=== PATIENT | male | born 1950 | race Caucasian/White ===

== ENCOUNTER → 2016-08-28 | Outpatient (CLI) | payer OTHER ==
--- NOTE | 2016-08-28 10:10 | MR ---
EXAMINATION TYPE: MR cervical spine wo con DATE OF EXAM: 08/28/2016 COMPARISON: 11/24/2008 HISTORY: Cervicalgia TECHNIQUE: Multiplanar, multisequence images of the cervical spine were acquired. C2-C3: No evidence for degenerative disc disease. No disc bulge/herniation or protrusion. No Canal stenosis. Foramina are patent bilaterally. C3-C4: No evidence for degenerative disc disease. No disc bulge/herniation or protrusion. No Canal stenosis. Foramina are patent bilaterally. C4-C5: Mild broad-based central disc bulging. Mild uncovertebral joint projecting with no canal steno sis or foraminal encroachment. C5-C6: Moderate degenerative disc disease. Broad-based central disc protrusion results in encroachmen t upon the anterior margin the spinal cord and mild mass effect. Moderate to severe canal stenosis wi th uncovertebral joint hypertrophy and facet arthropathy contribute to moderate to severe bilateral f oraminal encroachment. C6-C7: Posterior cervical spondylosis with broad-based disc protrusion capped by spur greater paracen trally to the left. Uncovertebral joint hypertrophy and facet arthropathy contribute to moderate to s evere bilateral foraminal encroachment and moderate canal stenosis. C7-T1: No evidence for degenerative disc disease. No disc bulge/herniation or protrusion. No Canal stenosis. Foramina are patent bilaterally. Cervical segments are intact. There is normal alignment. Cervical spinal cord is of normal signal. Craniovertebral junction relationships are within normal limits. Changes of chronic sinusitis noted . IMPRESSION: 1. Degenerative disc disease particularly noted at C5-C6 and C6-C7 with central broad-based disc prot rusions capped by spur, cervical spondylosis and hypertrophic changes resulting in significant canal stenosis and bilateral foraminal encroachment as discussed above. Contact and mild mass effect upon t he anterior margin of the cervical spinal cord at C5-C6 is progressed from the previous exam.
== END | disposition home or self-care (01) ==
LOC: RADMRIMAIN 08:55
PROVIDERS: ATTEND Physician Assistant Medical
DX: M48.02 Spinal stenosis, cervical region (principal); M50.222 Other cervical disc displacement at C5-C6 level; M47.812 Spondylosis without myelopathy or radiculopathy, cervical region; M50.322 Other cervical disc degeneration at C5-C6 level; M53.82 Other specified dorsopathies, cervical region
CPT/HCPCS: 72141

== ENCOUNTER 2019-02-23 01:20 | Inpatient (IN) | payer OTHER, MEDICARE ==
[2019-02-23 02:28] LABS: Basophils % (A) 0 %; Eosinophils # (A) 0.1 k/uL (0-0.7); Eosinophils % (A) 1 %; HCT 48.6 % (39.0-53.0); HGB 16.1 gm/dL (13.0-17.5); Lymphocytes % (A) 11 %; MCH 31.6 pg (25.0-35.0); MCHC 33.2 g/dL (31.0-37.0); MCV 95.4 fL (80.0-100.0); Mean Platelet Volume 6.9; Monocytes # (A) 0.3 k/uL (0-1.0); Monocytes % (A) 3 %; Neutrophils # (A) 7.8 k/uL (1.3-7.7); Neutrophils % (A) 85 %; Platelet Count 281 k/uL (150-450); RDW 12.9 % (11.5-15.5); WBC 9.2 k/uL (3.8-10.6)
[2019-02-23 02:42] LABS: Appearance,Urine Clear (Clear); Bilirubin,Urine Negative (Negative); Blood,Urine Moderate (Negative); Color,Urine Yellow; Glucose,Urine (UA) Negative (Negative); Ketones,Urine Negative (Negative); Leukocyte Esterase,Urine Trace (Negative); Mucus,Urine Occasional /hpf; Nitrite,Urine Negative (Negative); Protein,Urine 1+ (Negative); RBC,Urine 15 /hpf (0-5); Specific Gravity,Urine 1.012 (1.001-1.035); Urobilinogen,Urine <2.0 mg/dL (<2.0); WBC,Urine 1 /hpf (0-5)
--- NOTE | 2019-02-23 02:47 | XR ---
EXAMINATION TYPE: XR KUB DATE OF EXAM: 02/23/2019 COMPARISON: NONE HISTORY: Abdominal pain TECHNIQUE: 2 views upright FINDINGS: Bowel gas pattern is normal. There is no sign of intestinal obstruction or pneumoperitoneum . Fecal pattern is normal. There is no sign of a mass. There is small area of atelectasis lateral left lung base. IMPRESSION: Nonacute abdomen.
[2019-02-23 02:53] LABS: ALT 17 U/L (4-49); AST 28 U/L (17-59); African American GFR (CKD) >90 (>60 ml/min/1.73 sqM); Alkaline Phosphatase 69 U/L (38-126); Anion Gap 12 mmol/L; Blood Urea Nitrogen 7 mg/dL (9-20); Carbon Dioxide 27 mmol/L (22-30); Chloride 97 mmol/L (98-107); Glucose 132 mg/dL (74-99); Non-African American GFR(CKD) 81 (>60 ml/min/1.73 sqM); Potassium 4.2 mmol/L (3.5-5.1); Sodium 136 mmol/L (137-145); Total Bilirubin 0.9 mg/dL (0.2-1.3); Total Protein 8.4 g/dL (6.3-8.2)
[2019-02-23 03:01] LABS: Amylase 354 U/L (30-110)
--- NOTE | 2019-02-23 03:02 | ED ---
Abdominal Pain HPI - General Chief Complaint: Abdominal Pain Stated Complaint: abdominal pain Time Seen by Provider: 02/23/19 02:11 Source: patient Mode of arrival: ambulatory Limitations: no limitations - History of Present Illness Initial Comments: Matteo is a previously healthy 69-year-old gentleman a presents the ER today for evaluation of generalized abdominal pain. Pain began on the evening and has progressively worsened since then he's been taking Pepto with no improvement. Patient seems to be worse on the right than left but is diffuse now. Pain is associated with nausea but no vomiting. Normal bowel movement yesterday. Patient has no history of diverticulitis or diverticulosis. Normal colonoscopy about 5 years ago. She has a history of ruptured appendix with appendectomy in the distant past. Patient states that he has not much of a drinker he did have 1 glass of wine with [place] dinner. He does still have his gallbladder. He has no history of pancreatitis. Was recently prescribed Celebrex which is his only new medic ation. - Related Data Allergies Allergy/AdvReac Type Severity Reaction Status Date / Time Mhwcjqk-Upc-Ict Reductase Allergy Rash/Hives Verified 02/23/19 01:49 Inhibitor Review of Systems ROS Statement: Those systems with pertinent positive or pertinent negative responses have been documented in the HPI. ROS Other: All systems not noted in ROS Statement are negative. Past Medical History Past Medical History: Hypertension History of Any Multi-Drug Resistant Organisms: None Reported Past Surgical History: Appendectomy, Hernia Repair Past Psychological History: No Psychological Hx Reported Smoking Status: Never smoker Past Alcohol Use History: None Reported Past Drug Use History: None Reported General Exam - General Exam Comments Initial Comments: Physical Exam GENERAL: Patient is well-developed and well-nourished. Patient is nontoxic and well- hydrated and is in no distress. HENT: Normocephalic, Atraumatic. EYES: PERRL, EOMI PULMONARY: Unlabored respirations. No audible rales rhonchi or wheezing was noted. CARDIOVASCULAR: There is a regular rate and rhythm without any murmurs gallops or rubs. ABDOMEN: Soft, nondistended, diffuse tenderness to palpation SKIN: Skin is clear with no lesions or rashes and otherwise unremarkable. : Deferred NEUROLOGIC: Patient is alert and oriented x3. Moving all extremities spontaneously MUSCULOSKELETAL: Normal extremities with adequate strength and full range of motion. No lower extremity swelling or edema. No calf tenderness. PSYCHIATRIC: Normal psychiatric evaluation. Limitations: no limitations Course Vital Signs 02/23/19 02/23/19 02/23/19 01:45 03:33 04:12 Temperature 98.1 F Pulse Rate 108 H 94 92 Respiratory 18 18 18 Rate Blood Pressure 161/90 146/84 143/79 O2 Sat by Pulse 97 96 96 Oximetry Medical Decision Making - Medical Decision Making The patient was seen and evaluated history is obtained from the patient history and physical exam reveal a moderately uncomfortable elderly gentleman with no known GI pathology. Labs reveal elevated lipase and amylase consistent with acute pancreatitis. CT imaging was obtained. Computed tomography scan confirms inflammation of the pancreas with a normal gallbladder, normal liver, no other acute findings. Patient will be admitted for IV fluids pain management. - Lab Data Result diagrams: 02/23/19 02:02 02/23/19 02:02 Lab Results 02/23/19 02/23/19 02/23/19 Range/Units 02:02 02:02 02:02 WBC 9.2 (3.8-10.6) k/uL RBC 5.10 (4.30-5.90) m/uL Hgb 16.1 (13.0-17.5) gm/dL Hct 48.6 (39.0-53.0) % MCV 95.4 (80.0-100.0) fL MCH 31.6 (25.0-35.0) pg MCHC 33.2 (31.0-37.0) g/dL RDW 12.9 (11.5-15.5) % Plt Count 281 (150-450) k/uL Neutrophils % 85 % Lymphocytes % 11 % Monocytes % 3 % Eosinophils % 1 % Basophils % 0 % Neutrophils # 7.8 H (1.3-7.7) k/uL Lymphocytes # 1.0 (1.0-4.8) k/uL Monocytes # 0.3 (0-1.0) k/uL Eosinophils # 0.1 (0-0.7) k/uL Basophils # 0.0 (0-0.2) k/uL Sodium 136 L (137-145) mmol/L Potassium 4.2 (3.5-5.1) mmol/L Chloride 97 L (98-107) mmol/L Carbon Dioxide 27 (22-30) mmol/L Anion Gap 12 mmol/L BUN 7 L (9-20) mg/dL Creatinine 0.95 (0.66-1.25) mg/dL Est GFR (CKD-EPI)AfAm >90 (>60 ml/min/1.73 sqM) Est GFR (CKD-EPI)NonAf 81 (>60 ml/min/1.73 sqM) Glucose 132 H (74-99) mg/dL Plasma Lactic Acid [place] (0.7-2.0) mmol/L Calcium 10.0 (8.4-10.2) mg/dL Total Bilirubin 0.9 (0.2-1.3) mg/dL AST 28 (17-59) U/L ALT 17 (4-49) U/L Alkaline Phosphatase 69 (38-126) U/L Troponin I <0.012 (0.000-0.034) ng/mL Total Protein 8.4 H (6.3-8.2) g/dL Albumin 5.0 (3.5-5.0) g/dL Amylase 354 H* (30-110) U/L Lipase 2908 H (23-300) U/L Urine Color Urine Appearance (Clear) Urine pH (5.0-8.0) Ur Specific [place] (1.001-1.035) Urine Protein (Negative) Urine Glucose (UA) (Negative) Urine Ketones (Negative) Urine Blood (Negative) Urine Nitrite (Negative) Urine Bilirubin (Negative) Urine Urobilinogen (<2.0) mg/dL Ur Leukocyte Esterase (Negative) Urine RBC (0-5) /hpf Urine WBC (0-5) /hpf Urine Mucus (None) /hpf 02/23/19 02/23/19 Range/Units 02:02 02:11 WBC (3.8-10.6) k/uL RBC (4.30-5.90) m/uL Hgb (13.0-17.5) gm/dL Hct (39.0-53.0) % MCV (80.0-100.0) fL MCH (25.0-35.0) pg MCHC (31.0-37.0) g/dL RDW (11.5-15.5) % Plt Count (150-450) k/uL Neutrophils % % Lymphocytes % % Monocytes % % Eosinophils % % Basophils % % Neutrophils # (1.3-7.7) k/uL Lymphocytes # (1.0-4.8) k/uL Monocytes # (0-1.0) k/uL Eosinophils # (0-0.7) k/uL Basophils # (0-0.2) k/uL Sodium (137-145) mmol/L Potassium (3.5-5.1) mmol/L Chloride (98-107) mmol/L Carbon Dioxide (22-30) mmol/L Anion Gap mmol/L BUN (9-20) mg/dL Creatinine (0.66-1.25) mg/dL Est GFR (CKD-EPI)AfAm (>60 ml/min/1.73 sqM) Est GFR (CKD-EPI)NonAf (>60 ml/min/1.73 sqM) Glucose (74-99) mg/dL Plasma Lactic Acid [place] 1.4 (0.7-2.0) mmol/L Calcium (8.4-10.2) mg/dL Total Bilirubin (0.2-1.3) mg/dL AST (17-59) U/L ALT (4-49) U/L Alkaline Phosphatase (38-126) U/L Troponin I (0.000-0.034) ng/mL Total Protein (6.3-8.2) g/dL Albumin (3.5-5.0) g/dL Amylase (30-110) U/L Lipase (23-300) U/L Urine Color Yellow Urine Appearance Clear (Clear) Urine pH 6.0 (5.0-8.0) Ur Specific [place] 1.012 (1.001-1.035) Urine Protein 1+ H (Negative) Urine Glucose (UA) Negative (Negative) Urine Ketones Negative (Negative) Urine Blood Moderate H (Negative) Urine Nitrite Negative (Negative) Urine Bilirubin Negative (Negative) Urine Urobilinogen <2.0 (<2.0) mg/dL Ur Leukocyte Esterase Trace H (Negative) Urine RBC 15 H (0-5) /hpf Urine WBC 1 (0-5) /hpf Urine Mucus Occasional H (None) /hpf - EKG Data EKG shows normal: sinus rhythm Rate: tachycardia EKG Comments: EKG was obtained due to complaint of epigastric pain in the elderly gentleman, EKG obtained at 2:11 AM, rate is 101 rhythm is sinus tach normal axis normal intervals no acute ST elevations or depressions no evidence of acute ischemia or infarction. Disposition Clinical Impression: Acute pancreatitis Disposition: ADMITTED IP TO THIS HOSP Condition: Serious Is patient prescribed a controlled substance at d/c from ED?: No
[2019-02-23] MEDS ORDERED: ONDANSETRON 4 MG/2 ML VIAL IVP STA (03:19)
[2019-02-23] MEDS ORDERED: MORPHINE SULFATE 4 MG/ML SYRINGE IVP STA (03:19)
[2019-02-23] MEDS ORDERED: MORPHINE SULFATE 4 MG/ML SYRINGE IV PRN (03:20)
[2019-02-23] MEDS ORDERED: SODIUM CHLORIDE 0.9% 1,000 ML IV ONE (03:20)
[2019-02-23] MEDS ORDERED: NALOXONE 0.4 MG/ML 1 ML VIAL IV PRN (03:20)
[2019-02-23] MEDS ORDERED: SODIUM CHLORIDE 0.9% 2,000 ML IV ONE (03:22)
--- NOTE | 2019-02-23 04:33 | CT ---
EXAMINATION TYPE: CT abdomen pelvis w con DATE OF EXAM: 02/23/2019 COMPARISON: None HISTORY: Patient presents with abdominal pain. CT DLP: 963.3 mGycm Automated exposure control for dose reduction was used. CONTRAST: Performed with IV Contrast, patient injected with 100mL mL of Isovue 300. Lung bases show mild scarring or subsegmental atelectasis in the left lower lobe. There is no pleural effusion. Heart size is normal. Liver and gallbladder appear normal. Spleen is intact. Stomach is intact. There is mild fat stranding around the tail of the pancreas. I see no pancreatic mass. There is no adrenal mass. Kidneys show satisfactory contrast opacification. There is no hydronephrosi s. There is 2 cm cortical cyst lateral left kidney. There is no retroperitoneal adenopathy. Ureters a re not dilated. Bladder distends smoothly. There is no inguinal hernia. There are multiple sigmoid diverticula. There is no diverticulitis. There is no mesenteric edema. There is no ascites or free air. Appendix is not seen. There is no sign of thickened appendix. Lumbar vertebra have normal alignment. Disc spaces are fairly normal. Posterior elements are intact. Bony pelvis is intact. There is no compression fractur e. IMPRESSION: Mild inflammatory changes around the tail of the pancreas consistent with acute pancreatitis. Minimal scarring or atelectasis at the left posterior lung base.
[2019-02-23] MEDS: SODIUM CHLORIDE 0.9% 1,000 ML IV SCH ×3 (06:39→15:45)
[2019-02-23] MEDS: HYDROmorphone 0.5 MG/0.5 ML SYRINGE IVP PRN ×4 (08:04→23:25)
[2019-02-23 08:17] LABS: Glucose,Whole Blood 109 mg/dL (75-99)
--- NOTE | 2019-02-23 14:09 | P.HPIM ---
History of Present Illness This is a pleasant 69 years old male with no significant past medical history other than hypertension present presents because of abdominal pain 2 days duration. Pain and periumbilical and generalized as per patient nonradiating. Nonspecific in character but is severe enough to bring him to the hospital associated with nausea but no vomiting, no change in bowel habits however his stool was dark colored because he was taking Pepto-Bismol as he states. No significant attacks in the past. No smoking or alcohol or illicit drugs. He takes Celebrex for his neck pain as he has chronic back and neck pain Vitals are stable. Labs including CBC, BMP and liver enzymes were unremarkable. Elevated lipase at 04/06/2007 and amylase at 354. [address] of the abdomen and pelvis, showing mild inflammatory changes in the tail of the pancreas consistent with acute pancreatitis. abdominal x-ray: No acute abdomen. abnormal urinalysis with moderate blood and trace leukocyte esterase. We got repeat urinalysis room patient was started on morphine, normal saline 200 mL per hour and placed nothing by mouth diet. Review of Systems CONSTITUTIONAL: No fever, no malaise, no fatigue. HEENT: No recent visual problems or hearing problems. Denied any sore throat. CARDIOVASCULAR: No orthopnea, PND, no palpitations, no syncope. PULMONARY: No shortness of breath, no cough, no hemoptysis. GASTROINTESTINAL: No diarrhea, no nausea, no vomiting, no abdominal pain. Normoactive bowel sounds. NEUROLOGICAL: No headaches, no weakness, no numbness. HEMATOLOGICAL: Denies any bleeding or petechiae. GENITOURINARY: Denies any burning micturition, frequency, or urgency. MUSCULOSKELETAL/RHEUMATOLOGICAL: Denies any joint pain, swelling, or any muscle pain. ENDOCRINE: Denies any polyuria or polydipsia. Past Medical History Past Medical History: Hypertension History of Any Multi-Drug Resistant Organisms: None Reported Past Surgical History: Appendectomy, Hernia Repair Past Psychological History: No Psychological Hx Reported Smoking Status: Never smoker Past Alcohol Use History: None Reported Past Drug Use History: None Reported Medications and Allergies Home Medications Medication Instructions Recorded Confirmed Type ALPRAZolam [Xanax] 0.5 mg PO DAILY PRN 02/23/19 02/23/19 History Brinzolamide/Brimonidine Tart 1 drop BOTH EYES BID 02/23/19 02/23/19 History [Simbrinza 1%-0.2% Eye Drops] Calcium Carbonate/Vitamin D3 1 tab PO DAILY 02/23/19 02/23/19 History [Calcium 500-Vit D3 200 Tablet] Celecoxib [CeleBREX] 200 mg PO BID 02/23/19 02/23/19 History Fluticasone Nasal [place] [Flonase 1 spray EA NOSTRIL BID 02/23/19 02/23/19 History Nasal [place]] Latanoprost [Xalatan 0.005%] 1 drop BOTH EYES HS 02/23/19 02/23/19 History Lidocaine 5% Oint [Xylocaine 5% 1 applic TOPICAL BID 02/23/19 02/23/19 History Oint] Loratadine [Claritin] 10 mg PO DAILY 02/23/19 02/23/19 History Mineral Oil/Petrolatum Opth 1 applic BOTH EYES HS 02/23/19 02/23/19 History Ointment Multivitamins, Thera [Multivitamin 1 tab PO DAILY 02/23/19 02/23/19 History (formulary)] [place]-3 Fatty Acids/Fish Oil [Fish 1 cap PO DAILY 02/23/19 02/23/19 History Oil 1,000 mg Softgel] Polyethylene Glycol 3350 [Miralax] 17 gm PO DAILY PRN 02/23/19 02/23/19 History traZODone HCL [Desyrel] 100 mg PO HS 02/23/19 02/23/19 History Allergies Allergy/AdvReac Type Severity Reaction Status Date / Time Ftcmfrs-Kci-Jzu Reductase AdvReac MUSCLE PAIN Verified 02/23/19 10:02 Inhibitor Physical Exam Vitals: Vital Signs Temp Pulse Resp BP Pulse Ox 02/23/19 12:25 98.8 F 79 20 161/90 95 02/23/19 10:32 78 18 148/82 98 02/23/19 07:23 99.4 F 85 18 154/86 97 02/23/19 06:40 98.8 F 90 18 129/75 99 02/23/19 04:12 92 18 143/79 96 02/23/19 03:33 94 18 146/84 96 02/23/19 01:45 98.1 F 108 H 18 161/90 97 Intake and Output 02/22/19 02/23/19 02/23/19 22:59 06:59 14:59 Other: Weight 72.575 kg GENERAL: The patient is alert and oriented x3, not in any acute distress. Well developed, well nourished. HEENT: Pupils are round and equally reacting to light. EOMI. No scleral icterus. No conjunctival pallor. Normocephalic, atraumatic. No pharyngeal erythema. No thyromegaly. CARDIOVASCULAR: S1 and S2 present. No murmurs, rubs, or gallops. PULMONARY: Chest is clear to auscultation, no wheezing or crackles. -ABDOMEN: Soft, epigastric tenderness, nondistended, normoactive bowel sounds. No palpable organomegaly. MUSCULOSKELETAL: No joint swelling or deformity. EXTREMITIES: No cyanosis, clubbing, or pedal edema. NEUROLOGICAL: Gross neurological examination did not reveal any focal deficits. SKIN: No rashes. No petechiae Results CBC & Chem 7: 02/23/19 02:02 02/23/19 02:02 Labs: Abnormal Lab Results - Last 24 Hours (Table) 02/23/19 02/23/19 02/23/19 Range/Units 02:02 02:02 02:11 Neutrophils # 7.8 H (1.3-7.7) k/uL Sodium 136 L (137-145) mmol/L Chloride 97 L (98-107) mmol/L BUN 7 L (9-20) mg/dL Glucose 132 H (74-99) mg/dL POC Glucose (mg/dL) (75-99) mg/dL Total Protein 8.4 H (6.3-8.2) g/dL Amylase 354 H* (30-110) U/L Lipase 2908 H (23-300) U/L Urine Protein 1+ H (Negative) Urine Blood Moderate H (Negative) Ur Leukocyte Esterase Trace H (Negative) Urine RBC 15 H (0-5) /hpf Urine Mucus Occasional H (None) /hpf 02/23/19 Range/Units 08:15 Neutrophils # (1.3-7.7) k/uL Sodium (137-145) mmol/L Chloride (98-107) mmol/L BUN (9-20) mg/dL Glucose (74-99) mg/dL POC Glucose (mg/dL) 109 H (75-99) mg/dL Total Protein (6.3-8.2) g/dL Amylase (30-110) U/L Lipase (23-300) U/L Urine Protein (Negative) Urine Blood (Negative) Ur Leukocyte Esterase (Negative) Urine RBC (0-5) /hpf Urine Mucus (None) /hpf Assessment and Plan Assessment: Acute pancreatitis Hypertension Chronic neck and back pain Plan: This is a pleasant 69 years old male who presents with acute pancreatitis. Continue with bowel rest, pain management and IV fluids. GI consult. Check lipid profile, check liver ultrasound. Check lipid profile and occult blood in stool Labs and medication were reviewed.. Continue same treatment. Continue with symptomatic treatment. Resume home medication. Monitor lytes and vitals. DVT and GI prophylaxis. Further recommendations of the clinical course of the patient DVT prophylaxis: Subcutaneous heparin GI Prophylaxis: Pepcid PT/OT: Pending Prognosis is guarded has
[2019-02-23 15:07] LABS: Glucose,Whole Blood 121 mg/dL (75-99)
[2019-02-23] MEDS: DEXTROSE 5%-0.9% NACL 1,000 ML IV SCH ×3 (16:02→22:33)
[2019-02-23] MEDS: ACETAMINOPHEN TAB 325 MG TAB PO PRN (16:25)
[2019-02-23 16:30] LABS: Glucose,Whole Blood 123 mg/dL (75-99)
[2019-02-23] MEDS: ONDANSETRON 4 MG/2 ML VIAL IVP PRN (19:26)
[2019-02-23] MEDS: FAMOTIDINE 20 MG/2 ML VIAL IV SCH (20:15)
[2019-02-23] MEDS: DORZOLAMIDE HCL 2% DROPS 10 ML BTL BOTH EYES SCH (20:15)
[2019-02-23] MEDS: BRIMONIDINE TARTRATE 0.2% DROPS 5 ML BTL BOTH EYES SCH (20:15)
[2019-02-23] MEDS: HEPARIN SODIUM,PORCINE 5,000 UNIT/ML 1 ML VIAL SQ SCH (20:15)
[2019-02-23 20:26] LABS: Appearance,Urine Clear (Clear); Bilirubin,Urine Negative (Negative); Blood,Urine Small (Negative); Color,Urine Light Yellow; Glucose,Urine (UA) Negative (Negative); Ketones,Urine 2+ (Negative); Leukocyte Esterase,Urine Negative (Negative); Mucus,Urine Rare /hpf; Nitrite,Urine Negative (Negative); Protein,Urine Negative (Negative); RBC,Urine 8 /hpf (0-5); Specific Gravity,Urine 1.014 (1.001-1.035); Urobilinogen,Urine <2.0 mg/dL (<2.0); WBC,Urine 1 /hpf (0-5)
[2019-02-23 20:30] LABS: Glucose,Whole Blood 194 mg/dL (75-99)
[2019-02-23] MEDS ORDERED: SODIUM CHLORIDE 0.9% 1,000 ML IV SCH (21:15)
[2019-02-24] MEDS: HYDROmorphone 0.5 MG/0.5 ML SYRINGE IVP PRN ×4 (02:55→18:21)
[2019-02-24] MEDS: ACETAMINOPHEN TAB 325 MG TAB PO PRN ×3 (02:57→14:40)
[2019-02-24] MEDS: DEXTROSE 5%-0.9% NACL 1,000 ML IV SCH ×4 (04:13→21:23)
[2019-02-24 07:05] LABS: Glucose,Whole Blood 96 mg/dL (75-99)
--- NOTE | 2019-02-24 08:01 | P.PN ---
Subjective This is a pleasant 69 years old male with no significant past medical history other than hypertension present presents because of abdominal pain 2 days duration. Pain and periumbilical and generalized as per patient nonradiating. Nonspecific in character but is severe enough to bring him to the hospital associated with nausea but no vomiting, no change in bowel habits however his stool was dark colored because he was taking Pepto-Bismol as he states. No significant attacks in the past. No smoking or alcohol or illicit drugs. He takes Celebrex for his neck pain as he has chronic back and neck pain Vitals are stable. Labs including CBC, BMP and liver enzymes were unremarkable. Elevated lipase at 04/06/2007 and amylase at 354. CT of the abdomen and pelvis, showing mild inflammatory changes in the tail of the pancreas consistent with acute pancreatitis. abdominal x-ray: No acute abdomen. abnormal urinalysis with moderate blood and trace leukocyte esterase. We got repeat urinalysis room patient was started on morphine, normal saline 200 mL per hour and placed nothing by mouth diet. 02/24/2019 Patient still complaining of from abdominal pain with no nausea vomiting. No bowel movement as of yesterday. His sugar has been dropping and he is been nothing by mouth, patient is not diabetic, we'll add dextrose to his IV fluids. Keep checking his sugar. Vitals stable. Labs are pending. He has periumbilical abdominal tenderness therefore going to do abdominal x-ray for follow-up Review of systems CONSTITUTIONAL: No fever, no malaise, no fatigue. HEENT: No recent visual problems or hearing problems. Denied any sore throat. CARDIOVASCULAR: No orthopnea, PND, no palpitations, no syncope. PULMONARY: No shortness of breath, no cough, no hemoptysis. GASTROINTESTINAL: No diarrhea, Normoactive bowel sounds. NEUROLOGICAL: No headaches, no weakness, no numbness. HEMATOLOGICAL: Denies any bleeding or petechiae. GENITOURINARY: Denies any burning micturition, frequency, or urgency. MUSCULOSKELETAL/RHEUMATOLOGICAL: Denies any joint pain, swelling, or any muscle pain. ENDOCRINE: Denies any polyuria or polydipsia. Active Medications Generic Name Dose Route Start Last Admin Trade Name Freq PRN Reason Stop Dose Admin Acetaminophen 650 mg 02/23/19 16:01 02/24/19 02:57 Tylenol Tab PO 650 mg Q6HR PRN Administration Fever and/ or MILD Pain Brimonidine Tartrate 1 drops 02/23/19 21:00 02/23/19 20:15 Alphagan P 0.2% Ophth Soln BOTH EYES 1 drops BID ANDRE Administration Dorzolamide HCl 1 drops 02/23/19 21:00 02/23/19 20:15 Trusopt BOTH EYES 1 drops BID ANDRE Administration Famotidine 20 mg 02/23/19 21:00 02/23/19 20:15 Pepcid IV 20 mg Q12HR ANDRE Administration Heparin Sodium (Porcine) 5,000 unit 02/23/19 21:00 02/23/19 20:15 Heparin SQ 5,000 unit Q12HR ANDRE Administration Hydromorphone HCl 0.5 mg 02/23/19 03:20 02/24/19 02:55 Dilaudid IVP 0.5 mg Q3HR PRN Administration Moderate Pain Dextrose/Sodium Chloride 1,000 mls @ 200 mls/hr 02/23/19 14:15 02/24/19 04:13 Dextrose 5%-Ns Iv Soln IV Not Given .Q5H [facility] Morphine Sulfate 4 mg 02/23/19 03:20 02/24/19 06:13 Morphine Sulfate (Inj) IV 4 mg Q4HR PRN Administration Severe Pain Naloxone HCl 0.2 mg 02/23/19 03:20 Narcan IV Q2M PRN Opioid Reversal Ondansetron HCl 4 mg 02/23/19 03:20 02/23/19 19:26 Zofran IVP 4 mg Q8HR PRN Administration Nausea And Vomiting Objective - Vital Signs Vital signs: Vital Signs Temp 97.9 F 02/24/19 06:04 Pulse 69 02/24/19 06:04 Resp 17 02/24/19 06:04 BP 152/88 02/24/19 06:04 Pulse Ox 98 02/24/19 06:04 Intake & Output 02/23/19 02/24/19 02/24/19 18:59 06:59 18:59 Weight 72.575 kg Other: # Voids 1 - Exam GENERAL: The patient is alert and oriented x3, not in any acute distress. Well developed, well nourished. HEENT: Pupils are round and equally reacting to light. EOMI. No scleral icterus. No conjunctival pallor. Normocephalic, atraumatic. No pharyngeal erythema. No thyromegaly. CARDIOVASCULAR: S1 and S2 present. No murmurs, rubs, or gallops. PULMONARY: Chest is clear to auscultation, no wheezing or crackles. -ABDOMEN: Soft, epigastric and periumbilical tenderness, nondistended, normoactive bowel sounds. No palpable organomegaly. MUSCULOSKELETAL: No joint swelling or deformity. EXTREMITIES: No cyanosis, clubbing, or pedal edema. NEUROLOGICAL: Gross neurological examination did not reveal any focal deficits. SKIN: No rashes. No petechiae - Labs CBC & Chem 7: 02/23/19 02:02 02/23/19 02:02 Labs: Abnormal Lab Results - Last 24 Hours (Table) 02/23/19 02/23/19 02/23/19 Range/Units 08:15 15:06 16:12 POC Glucose (mg/dL) 109 H 121 H (75-99) mg/dL Urine Ketones 2+ H (Negative) Urine Blood Small H (Negative) Urine RBC 8 H (0-5) /hpf Urine Mucus Rare H (None) /hpf 02/23/19 02/23/19 Range/Units 16:25 20:19 POC Glucose (mg/dL) 123 H 194 H (75-99) mg/dL Urine Ketones (Negative) Urine Blood (Negative) Urine RBC (0-5) /hpf Urine Mucus (None) /hpf Assessment and Plan Assessment: Acute pancreatitis Hypertension Chronic neck and back pain Plan: This is a pleasant 69 years old male who presents with acute pancreatitis. Continue with bowel rest, pain management and IV fluids. GI consult. Check lipid profile, check liver ultrasound. Check lipid profile and occult blood in stool. Liver ultrasound and abdominal x-ray are pending Labs and medication were reviewed.. Continue same treatment. Continue with symptomatic treatment. Resume home medication. Monitor lytes and vitals. DVT and GI prophylaxis. Further recommendations of the clinical course of the patient DVT prophylaxis: Subcutaneous heparin GI Prophylaxis: Pepcid PT/OT: Pending Prognosis is guarded has
[2019-02-24] MEDS: HEPARIN SODIUM,PORCINE 5,000 UNIT/ML 1 ML VIAL SQ SCH ×2 (09:05→21:19)
[2019-02-24] MEDS: FAMOTIDINE 20 MG/2 ML VIAL IV SCH ×2 (09:05→21:18)
[2019-02-24] MEDS: DORZOLAMIDE HCL 2% DROPS 10 ML BTL BOTH EYES SCH ×2 (09:16→21:19)
[2019-02-24] MEDS: BRIMONIDINE TARTRATE 0.2% DROPS 5 ML BTL BOTH EYES SCH ×2 (09:16→21:19)
[2019-02-24] MEDS: ONDANSETRON 4 MG/2 ML VIAL IVP PRN (09:20)
[2019-02-24 09:42] LABS: Basophils % (A) 0 %; Eosinophils # (A) 0.2 k/uL (0-0.7); Eosinophils % (A) 2 %; Lymphocytes # (A) 1.6 k/uL (1.0-4.8); Lymphocytes % (A) 20 %; MCH 32.5 pg (25.0-35.0); MCHC 33.5 g/dL (31.0-37.0); Mean Platelet Volume 6.9; Monocytes # (A) 0.3 k/uL (0-1.0); Monocytes % (A) 4 %; Neutrophils # (A) 5.9 k/uL (1.3-7.7); Neutrophils % (A) 72 %; Platelet Count 249 k/uL (150-450); RBC 4.02 m/uL (4.30-5.90); WBC 8.1 k/uL (3.8-10.6)
[2019-02-24 09:45] LABS: HGB 13.1 gm/dL (13.0-17.5)
[2019-02-24 09:48] LABS: African American GFR (CKD) >90 (>60 ml/min/1.73 sqM); Amylase 107 U/L (30-110); Anion Gap 9 mmol/L; Blood Urea Nitrogen 8 mg/dL (9-20); Calcium 8.9 mg/dL (8.4-10.2); Carbon Dioxide 26 mmol/L (22-30); Chloride 104 mmol/L (98-107); Cholesterol 155 mg/dL (<200); Glucose 86 mg/dL (74-99); HDL Cholesterol 28 mg/dL (40-60); LDL Cholesterol,Calculated 102 mg/dL (0-99); Non-African American GFR(CKD) >90 (>60 ml/min/1.73 sqM); Potassium 4.3 mmol/L (3.5-5.1); Sodium 139 mmol/L (137-145); Triglycerides 127 mg/dL (<150)
--- NOTE | 2019-02-24 10:06 | XR ---
EXAMINATION TYPE: XR abdomen 2V DATE OF EXAM: 02/24/2019 COMPARISON: 02/23/2019 HISTORY: Abdominal pain TECHNIQUE: One view abdominal series FINDINGS: The osseous structures are intact. The bowel gas pattern is nonspecific. Subsegmental changes at the lung bases. Hypertrophic degenerative changes spine. Sclerotic density overlying the left iliac wing likely related to bone island. Nonspecific sclerosis of the right femoral head. Calcifications in pe lvis likely vascular. IMPRESSION: 1. Nonspecific abdomen. No diagnostic evidence of obstruction. 2. 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
--- NOTE | 2019-02-24 11:23 | US ---
EXAMINATION TYPE: US liver DATE OF EXAM: 02/24/2019 COMPARISON: CT CLINICAL HISTORY: Pancreatitis. Pancreatitis EXAM MEASUREMENTS: Liver Length: 13.7 cm Gallbladder Wall: 0.2 cm CBD: 0.5 cm Right Kidney: 10.3 x 4.7 x 4.6 cm Pt very gassy, unable to take breath in and hold it, very limited visualization Pancreas: 4mm panc duct visualized, otherwise unable to visualize due to overlying bowel gas Liver: Very limited visualization shows no abnormality Gallbladder: ?distended, only visualized intercostally, otherwise appeared wnl Evidence for sonographic Saxena's sign: No CBD: wnl Right Kidney: appeared wnl, lower pole gassed out IMPRESSION: 1. Pancreas is limited by bowel gas. There is slight prominence of the pancreatic duct. Pancreatic ta il is completely obscured and cannot be correlated with the findings seen by recent CT scan. 2. Limited assessment liver as discussed above. 3. No definite gallstones.
[2019-02-24] MEDS ORDERED: SENNOSIDES 8.6 MG TAB PO STA (14:45)
[2019-02-24 17:00] LABS: Glucose,Whole Blood 103 mg/dL (75-99)
[2019-02-24] MEDS: traZODone HCL 100 MG TAB PO SCH (21:18)
[2019-02-25] MEDS: DEXTROSE 5%-0.9% NACL 1,000 ML IV SCH ×5 (02:29→22:30)
[2019-02-25] MEDS: ACETAMINOPHEN TAB 325 MG TAB PO PRN (04:39)
--- NOTE | 2019-02-25 07:04 | P.CONS ---
History of Present Illness - Reason for Consult Consult date: 02/24/19 Pancreatitis Requesting physician: [place] E Sheet - Chief Complaint Abdominal pain - History of Present Illness 69-year-old male with medical history significant for hypertension who presented to the hospital with complaints of abdominal pain. The patient reported abdomin al pain present since which had been progressing in intensity. He reports that the pain was described as stabbing in nature in the. Umbilical region. No radiation of the patient's pain. He denies any similar episodes of pain in the past. The patient reports dry heaving in association with this pain but denies any nausea or vomiting. He denies any significant alcohol use. No personal or family history of pancreatitis in the past. Denies any new medications except for Celebrex. On presentation to the hospital laboratory evaluation significant for hemoglobin 16.1, WBC 9.2, creatinine 0.79 with elevated lipase of 2408 and amylase 354. Patient had evaluation with computed tomography scan of the abdomen with findings consistent with acute uncomplicated pancreatitis of the pancreatic tail. Review of Systems REVIEW OF SYSTEMS: CONSTITUTIONAL: Denies any fevers, chills, weight change or fatigue. CARDIOVASCULAR: Denies any chest pain, palpitations high or low blood pressures RESPIRATORY: Denies any shortness of breath, hemoptysis or cough. GENITOURINARY: No dysuria or hematuria. MUSCULOSKELETAL: No weakness reported. SKIN: Denies any new rashes or lesions, jaundice or pallor. PSYCHIATRIC: Denies any depression or anxiety. NEUROLOGY: Denies headache, denies any new focal deficits. EARS/NOSE/THROAT: No recent hearing change, congestion, nasal discharge or sore throat. EYES: No pain in eyes, discharge or change in vision. GASTROINTESTINAL: As per HPI. Past Medical History Past Medical History: Hypertension Additional Past Medical History / Comment(s): hypoglycemic, glaucoma, chronic pain in neck/back/hip, History of Any Multi-Drug Resistant Organisms: None Reported Past Surgical History: Appendectomy, Hernia Repair Past Psychological History: No Psychological Hx Reported Smoking Status: Never smoker Past Alcohol Use History: None Reported Past Drug Use History: None Reported - Past Family History Mother Family Medical History: Diabetes Mellitus, Hypertension Father Family Medical History: Cancer Medications and Allergies Home Medications Medication Instructions Recorded Confirmed Type ALPRAZolam [Xanax] 0.5 mg PO DAILY PRN 02/23/19 02/23/19 History Brinzolamide/Brimonidine Tart 1 drop BOTH EYES BID 02/23/19 02/23/19 History [Simbrinza 1%-0.2% Eye Drops] Calcium Carbonate/Vitamin D3 1 tab PO DAILY 02/23/19 02/23/19 History [Calcium 500-Vit D3 200 Tablet] Celecoxib [CeleBREX] 200 mg PO BID 02/23/19 02/23/19 History Fluticasone Nasal [place] [Flonase 1 spray EA NOSTRIL BID 02/23/19 02/23/19 History Nasal [place]] Latanoprost [Xalatan 0.005%] 1 drop BOTH EYES HS 02/23/19 02/23/19 History Lidocaine 5% Oint [Xylocaine 5% 1 applic TOPICAL BID 02/23/19 02/23/19 History Oint] Loratadine [Claritin] 10 mg PO DAILY 02/23/19 02/23/19 History Mineral Oil/Petrolatum Opth 1 applic BOTH EYES HS 02/23/19 02/23/19 History Ointment Multivitamins, Thera [Multivitamin 1 tab PO DAILY 02/23/19 02/23/19 History (formulary)] [place]-3 Fatty Acids/Fish Oil [Fish 1 cap PO DAILY 02/23/19 02/23/19 History Oil 1,000 mg Softgel] Polyethylene Glycol 3350 [Miralax] 17 gm PO DAILY PRN 02/23/19 02/23/19 History traZODone HCL [Desyrel] 100 mg PO HS 02/23/19 02/23/19 History Allergies Allergy/AdvReac Type Severity Reaction Status Date / Time [id number]-Eyz Reductase AdvReac MUSCLE PAIN Verified 02/23/19 10:02 Inhibitor Physical Exam Vitals: Vital Signs Temp Pulse Resp BP Pulse Ox 02/24/19 12:28 98.1 F 98 16 166/84 02/24/19 06:04 97.9 F 69 17 152/88 98 Intake and Output 02/24/19 02/24/19 02/24/19 06:59 14:59 22:59 Other: # Voids 1 2 On physical examination, patient appears comfortable in no apparent distress. HEAD: Normocephalic, atraumatic. EYES: No scleral icterus. No conjunctival injection. MOUTH: No lesions, tongue midline. NECK: Trachea midline, no gross abnormalities. CHEST: Clear to auscultation with no wheezing or rhonchi appreciated. HEART: Regular rate and rhythm. ABDOMEN: Soft, obese, mildly tender to palpation. Bowel sounds are positive. No organomegaly. No guarding or rigidity. EXTREMITIES: No pedal edema. SKIN: No rashes, no jaundice. NEUROLOGIC: Alert and oriented x3. No focal deficits. Results CBC & Chem 7: 02/24/19 08:41 02/24/19 08:41 Labs: Abnormal Lab Results - Last 24 Hours (Table) 02/24/19 02/24/19 02/24/19 Range/Units 08:41 08:41 16:58 RBC 4.02 L (4.30-5.90) m/uL BUN 8 L (9-20) mg/dL POC Glucose (mg/dL) 103 H (75-99) mg/dL LDL Cholesterol, Calc 102 H (0-99) mg/dL HDL Cholesterol 28 L (40-60) mg/dL Lipase 742 H (23-300) U/L CT scan - abdomen: report reviewed (Computed tomography scan of the abdomen with findings of acute inflammatory changes of the pancreatic tail.) Assessment and Plan (1) Acute pancreatitis Narrative/Plan: 69-year-old male with a medical history significant for hypertension presenting with complaints of abdominal pain to the hospital and being found to have elevated lipase of 2480 and inflammation of the pancreatic tail on computed tomography scan of the abdomen. Unknown cause of the patient's pancreatitis with no excessive alcohol use, or imaging findings to suggest gallstones. Patient's pain is improving with supportive care. Current Visit: Yes Status: Acute Code(s): K85.90 - ACUTE PANCREATITIS WITHOUT NECROSIS OR INFECTION, UNSP SNOMED Code(s): 412382804 (2) Abdominal pain Current Visit: Yes Status: Acute Code(s): R10.9 - UNSPECIFIED ABDOMINAL PAIN SNOMED Code(s): 10227883 Plan: Supportive care Clear liquid diet initiated, advance as tolerated Continue IV fluid hydration Continue pain control Extensive discussion with the patient and his regarding current diagnosis Ultrasound of the abdomen and CT of the abdomen reviewed Patient will need follow-up and scheduling of MRI of the abdomen in 6 weeks after discharge and resolution of inflammation to rule out pancreatic mass thank you for allowing us to participate in the care of the patient we will follow
[2019-02-25 07:27] LABS: Glucose,Whole Blood 139 mg/dL (75-99)
[2019-02-25] MEDS: HEPARIN SODIUM,PORCINE 5,000 UNIT/ML 1 ML VIAL SQ SCH ×2 (09:10→22:03)
[2019-02-25] MEDS: DORZOLAMIDE HCL 2% DROPS 10 ML BTL BOTH EYES SCH ×2 (09:11→22:02)
[2019-02-25] MEDS: FAMOTIDINE 20 MG/2 ML VIAL IV SCH (09:11)
[2019-02-25] MEDS: BRIMONIDINE TARTRATE 0.2% DROPS 5 ML BTL BOTH EYES SCH ×2 (09:11→22:02)
[2019-02-25 09:44] LABS: Basophils % (A) 0 %; Eosinophils # (A) 0.1 k/uL (0-0.7); Eosinophils % (A) 1 %; HCT 39.1 % (39.0-53.0); HGB 12.9 gm/dL (13.0-17.5); Lymphocytes % (A) 16 %; MCH 31.7 pg (25.0-35.0); MCHC 32.9 g/dL (31.0-37.0); MCV 96.2 fL (80.0-100.0); Mean Platelet Volume 7.1; Monocytes # (A) 0.3 k/uL (0-1.0); Monocytes % (A) 4 %; Neutrophils # (A) 5.1 k/uL (1.3-7.7); Neutrophils % (A) 78 %; Platelet Count 249 k/uL (150-450); RBC 4.06 m/uL (4.30-5.90); RDW 12.8 % (11.5-15.5); WBC 6.5 k/uL (3.8-10.6)
[2019-02-25] MEDS: ALPRAZolam 0.5 MG TAB PO PRN (09:46)
[2019-02-25] MEDS: HYDROmorphone 0.5 MG/0.5 ML SYRINGE IVP PRN (09:46)
[2019-02-25 10:01] LABS: African American GFR (CKD) >90 (>60 ml/min/1.73 sqM); Anion Gap 12 mmol/L; Blood Urea Nitrogen 6 mg/dL (9-20); Carbon Dioxide 22 mmol/L (22-30); Chloride 106 mmol/L (98-107); Glucose 160 mg/dL (74-99); Non-African American GFR(CKD) >90 (>60 ml/min/1.73 sqM); Potassium 3.6 mmol/L (3.5-5.1); Sodium 140 mmol/L (137-145)
[2019-02-25] MEDS ORDERED: HYDROmorphone 0.5 MG/0.5 ML SYRINGE IVP PRN (10:02)
--- NOTE | 2019-02-25 10:09 | P.PN ---
Subjective This is a pleasant 69 years old male with no significant past medical history other than hypertension present presents because of abdominal pain 2 days duration. Pain and periumbilical and generalized as per patient nonradiating. Nonspecific in character but is severe enough to bring him to the hospital associated with nausea but no vomiting, no change in bowel habits however his stool was dark colored because he was taking Pepto-Bismol as he states. No significant attacks in the past. No smoking or alcohol or illicit drugs. He takes Celebrex for his neck pain as he has chronic back and neck pain Vitals are stable. Labs including CBC, BMP and liver enzymes were unremarkable. Elevated lipase at 04/06/[address] of the abdomen and pelvis, showing mild inflammatory changes in the tail of the pancreas consistent with acute pancreatitis. abdominal x-ray: No acute abdomen. abnormal urinalysis with moderate blood and trace leukocyte esterase. We got repeat urinalysis room patient was started on morphine, normal saline 200 mL per hour and placed nothing by mouth diet. 02/24/2019 Patient still complaining of from abdominal pain with no nausea vomiting. No bowel movement as of yesterday. His sugar has been dropping and he is been nothing by mouth, patient is not diabetic, we'll add dextrose to his IV fluids. Keep checking his sugar. Vitals stable. Labs are pending. He has periumbilical abdominal tenderness therefore going to do abdominal x-ray for follow-up 02/25/2019 Patient was doing better today, history they has been evaluated by GI service and he was started on diet, this morning he was tolerating diet well and he was thinking of going home however later on he tried walking the hallway and his pain get worse so change his mind and he wants to stay in Hospital for now and continue therapy. Continue with IV fluids and pain management. We'll start patient on [place] and lower the dose of Dilaudid. Hemodynamically stable. his stable and sugar controlled. Lipase slightly up compared to yesterday at 996 patient will need follow-up and scheduling of MRI of the abdomen in 6 weeks after discharge, to rule out pancreatic mass, patient was instructed about this recommendation and he verbalized understanding and acceptance Objective - Vital Signs Vital signs: Vital Signs Temp 98.1 F 02/25/19 04:26 Pulse 79 02/25/19 04:26 Resp 18 02/25/19 04:26 BP 161/87 02/25/19 04:26 Pulse Ox 96 02/25/19 04:26 Intake & Output 02/24/19 02/25/19 02/25/19 18:59 06:59 18:59 Output Total 2 Balance -2 Output: Stool 2 Other: Voiding Method Toilet Urinal # Voids 2 1 - Exam GENERAL: The patient is alert and oriented x3, not in any acute distress. Well developed, well nourished. HEENT: Pupils are round and equally reacting to light. EOMI. No scleral icterus. No conjunctival pallor. Normocephalic, atraumatic. No pharyngeal erythema. No thyromegaly. CARDIOVASCULAR: S1 and S2 present. No murmurs, rubs, or gallops. PULMONARY: Chest is clear to auscultation, no wheezing or crackles. -ABDOMEN: Soft, epigastric and periumbilical tenderness, nondistended, normoactive bowel sounds. No palpable organomegaly. MUSCULOSKELETAL: No joint swelling or deformity. EXTREMITIES: No cyanosis, clubbing, or pedal edema. NEUROLOGICAL: Gross neurological examination did not reveal any focal deficits. SKIN: No rashes. No petechiae - Labs CBC & Chem 7: 02/25/19 08:53 02/25/19 08:53 Labs: Abnormal Lab Results - Last 24 Hours (Table) 02/24/19 02/25/19 02/25/19 Range/Units 16:58 07:12 08:53 RBC 4.06 L (4.30-5.90) m/uL Hgb 12.9 L (13.0-17.5) gm/dL BUN (9-20) mg/dL Glucose (74-99) mg/dL POC Glucose (mg/dL) 103 H 139 H (75-99) mg/dL Lipase (23-300) U/L 02/25/19 Range/Units 08:53 RBC (4.30-5.90) m/uL Hgb (13.0-17.5) gm/dL BUN 6 L (9-20) mg/dL Glucose 160 H (74-99) mg/dL POC Glucose (mg/dL) (75-99) mg/dL Lipase 996 H (23-300) U/L Assessment and Plan Assessment: Acute pancreatitis Hypertension Chronic neck and back pain Plan: This is a pleasant 69 years old male who presents with acute pancreatitis. Continue with bowel rest, pain management and IV fluids. GI consult. Check lipid profile, check liver ultrasound. Check lipid profile and occult blood in stool. Liver ultrasound and abdominal x-ray are pending Labs and medication were reviewed.. Continue same treatment. Continue with symptomatic treatment. Resume home medication. Monitor lytes and vitals. DVT and GI prophylaxis. Further recommendations of the clinical course of the patient DVT prophylaxis: Subcutaneous heparin GI Prophylaxis: Pepcid PT/OT: Pending Prognosis is guarded has patient will need follow-up and scheduling of MRI of the abdomen in 6 weeks after discharge, to rule out pancreatic mass, patient was instructed about this recommendation and he verbalized understanding and acceptance. Patient says that he'll make sure he follows up
[2019-02-25] MEDS: HYDROcodone/APAP 7.5-325MG 1 EACH TAB PO PRN (11:38)
[2019-02-25 17:20] LABS: Glucose,Whole Blood 113 mg/dL (75-99)
[2019-02-25] MEDS: FAMOTIDINE 20 MG TAB PO SCH (22:03)
[2019-02-25] MEDS: traZODone HCL 100 MG TAB PO SCH (22:03)
[2019-02-25] MEDS: LATANOPROST 0.005% OPHTH DROPS 2.5 ML BTL BOTH EYES SCH (23:54)
[2019-02-26] MEDS: DEXTROSE 5%-0.9% NACL 1,000 ML IV SCH ×3 (04:38→13:25)
[2019-02-26] MEDS: HYDROcodone/APAP 7.5-325MG 1 EACH TAB PO PRN ×3 (06:15→23:33)
[2019-02-26 06:58] LABS: Glucose,Whole Blood 97 mg/dL (75-99)
[2019-02-26] MEDS: DORZOLAMIDE HCL 2% DROPS 10 ML BTL BOTH EYES SCH ×2 (08:22→20:51)
[2019-02-26] MEDS: FAMOTIDINE 20 MG TAB PO SCH (08:22)
[2019-02-26] MEDS: HEPARIN SODIUM,PORCINE 5,000 UNIT/ML 1 ML VIAL SQ SCH ×2 (08:22→20:58)
[2019-02-26] MEDS: BRIMONIDINE TARTRATE 0.2% DROPS 5 ML BTL BOTH EYES SCH ×2 (08:22→20:51)
[2019-02-26 09:14] LABS: Basophils % (A) 0 %; Eosinophils # (A) 0.3 k/uL (0-0.7); Eosinophils % (A) 4 %; HGB 14.4 gm/dL (13.0-17.5); Lymphocytes # (A) 1.6 k/uL (1.0-4.8); Lymphocytes % (A) 22 %; MCH 32.1 pg (25.0-35.0); MCHC 33.5 g/dL (31.0-37.0); Mean Platelet Volume 7.5; Monocytes # (A) 0.4 k/uL (0-1.0); Monocytes % (A) 5 %; Neutrophils # (A) 4.8 k/uL (1.3-7.7); Neutrophils % (A) 66 %; Platelet Count 305 k/uL (150-450); RBC 4.48 m/uL (4.30-5.90); RDW 12.7 % (11.5-15.5); WBC 7.3 k/uL (3.8-10.6)
[2019-02-26 09:21] LABS: African American GFR (CKD) >90 (>60 ml/min/1.73 sqM); Anion Gap 12 mmol/L; Blood Urea Nitrogen 8 mg/dL (9-20); Calcium 9.5 mg/dL (8.4-10.2); Carbon Dioxide 26 mmol/L (22-30); Chloride 102 mmol/L (98-107); Glucose 94 mg/dL (74-99); Non-African American GFR(CKD) 89 (>60 ml/min/1.73 sqM); Potassium 3.9 mmol/L (3.5-5.1); Sodium 140 mmol/L (137-145)
[2019-02-26 17:02] LABS: Glucose,Whole Blood 97 mg/dL (75-99)
[2019-02-26] MEDS: ALPRAZolam 0.5 MG TAB PO PRN (17:51)
--- NOTE | 2019-02-26 17:56 | P.PN ---
Subjective Progress Note Date: 02/25/19 Principal diagnosis: Acute uncomplicated pancreatitis Lying in bed reporting abdominal pain still present. No nausea or vomiting. Tolerating liquids. Objective - Vital Signs Vital signs: Vital Signs Temp 97.7 F 02/25/19 14:21 Pulse 73 02/25/19 14:21 Resp 16 02/25/19 14:21 BP 179/83 02/25/19 14:21 Pulse Ox 97 02/25/19 14:21 Intake & Output 02/24/19 02/25/19 02/25/19 18:59 06:59 18:59 Intake Total 230 Output Total 2 Balance -2 230 Intake: Oral 230 Output: Stool 2 Other: Voiding Method Toilet Urinal # Voids 2 1 2 - Exam On physical examination, patient appears comfortable in no apparent distress. HEAD: Normocephalic, atraumatic. EYES: No scleral icterus. No conjunctival injection. MOUTH: No lesions, tongue midline. NECK: Trachea midline, no gross abnormalities. ABDOMEN: Soft, obese. Bowel sounds are positive. No organomegaly. No guarding or rigidity. EXTREMITIES: No pedal edema. SKIN: No rashes, no jaundice. NEUROLOGIC: Alert and oriented x3. No focal deficits. - Labs CBC & Chem 7: 02/26/19 07:32 02/26/19 07:32 Labs: Abnormal Lab Results - Last 24 Hours (Table) 02/24/19 02/25/19 02/25/19 Range/Units 16:58 07:12 08:53 RBC 4.06 L (4.30-5.90) m/uL Hgb 12.9 L (13.0-17.5) gm/dL BUN (9-20) mg/dL Glucose (74-99) mg/dL POC Glucose (mg/dL) 103 H 139 H (75-99) mg/dL Lipase (23-300) U/L 02/25/19 Range/Units 08:53 RBC (4.30-5.90) m/uL Hgb (13.0-17.5) gm/dL BUN 6 L (9-20) mg/dL Glucose 160 H (74-99) mg/dL POC Glucose (mg/dL) (75-99) mg/dL Lipase 996 H (23-300) U/L Assessment and Plan (1) Acute pancreatitis Narrative/Plan: 69-year-old male with a medical history significant for hypertension presenting with complaints of abdominal pain to the hospital and being found to have elevated lipase of 2480 and inflammation of the pancreatic tail on computed t omography scan of the abdomen. Unknown cause of the patient's pancreatitis with no excessive alcohol use, or imaging findings to suggest gallstones. Current Visit: Yes Status: Acute Code(s): K85.90 - ACUTE PANCREATITIS WITHOUT NECROSIS OR INFECTION, UNSP SNOMED Code(s): 068140675 (2) Abdominal pain Current Visit: Yes Status: Acute Code(s): R10.9 - UNSPECIFIED ABDOMINAL PAIN SNOMED Code(s): 73420263 Plan: Supportive care Clear liquid diet Continue IV fluid hydration Continue pain control Encourage ambulation as tolerated Ultrasound of the abdomen and CT of the abdomen reviewed Patient will need follow-up and scheduling of MRI of the abdomen in 6 weeks after discharge and resolution of inflammation to rule out pancreatic mass Thank you for allowing us to participate in the care of the patient we will follow
[2019-02-26] MEDS ORDERED: PANTOPRAZOLE 40 MG/10 ML VIAL IVP SCH (18:00)
--- NOTE | 2019-02-26 18:36 | XR ---
EXAMINATION TYPE: XR chest 1V portable DATE OF EXAM: 02/26/2019 COMPARISON: 06/15/2008 HISTORY: Short of breath TECHNIQUE: 2 views FINDINGS: Heart is normal. Lungs are clear of consolidation. There is small linear density at the lef t lung base. There is no pleural effusion. There are no hilar masses. Bony thorax is intact. IMPRESSION: Minimal scarring or subsegmental atelectasis left lung base is new compared to old exam. Normal heart. No heart failure.
[2019-02-26] MEDS: traZODone HCL 100 MG TAB PO SCH (20:58)
[2019-02-26] MEDS: LIDOCAINE 5% OINTMENT 50 GM JAR TOPICAL SCH (21:02)
[2019-02-26] MEDS: LATANOPROST 0.005% OPHTH DROPS 2.5 ML BTL BOTH EYES SCH (21:04)
[2019-02-26] MEDS: FLUTICASONE 50MCG/SPRAY NASAL 16GM EA NOSTRIL SCH (21:04)
--- NOTE | 2019-02-26 22:15 | P.PN ---
Subjective Progress Note Date: 02/26/19 Principal diagnosis: Acute uncomplicated pancreatitis Lying in bed reporting abdominal pain still present, and that he can't state that the pain has gotten better or that the pain is worse. He is tolerating liquids. Objective - Vital Signs Vital signs: Vital Signs Temp 98.2 F 02/26/19 04:26 Pulse 73 02/26/19 04:26 Resp 12 02/26/19 04:26 BP 145/79 02/26/19 04:26 Pulse Ox 97 02/26/19 04:26 Intake & Output 02/25/19 02/26/19 02/26/19 18:59 06:59 18:59 Intake Total 230 Balance 230 Intake: Oral 230 Other: Voiding Method Toilet Urinal # Voids 2 1 - Exam On physical examination, patient appears comfortable in no apparent distress. HEAD: Normocephalic, atraumatic. EYES: No scleral icterus. No conjunctival injection. MOUTH: No lesions, tongue midline. NECK: Trachea midline, no gross abnormalities. ABDOMEN: Soft, obese. Bowel sounds are positive. No organomegaly. No guarding or rigidity. EXTREMITIES: No pedal edema. SKIN: No rashes, no jaundice. NEUROLOGIC: Alert and oriented x3. No focal deficits. - Labs CBC & Chem 7: 02/26/19 07:32 02/26/19 07:32 Labs: Abnormal Lab Results - Last 24 Hours (Table) 02/25/19 02/26/19 Range/Units 16:59 07:32 BUN 8 L (9-20) mg/dL POC Glucose (mg/dL) 113 H (75-99) mg/dL Lipase 917 H (23-300) U/L Assessment and Plan (1) Acute pancreatitis Narrative/Plan: 69-year-old male with a medical history significant for hypertension presenting with complaints of abdominal pain to the hospital and being found to have elevated lipase of 2480 and inflammation of the pancreatic tail on computed tomography scan of the abdomen. Unknown cause of the patient's pancreatitis with no excessive alcohol use, or imaging findings to suggest gallstones. Current Visit: Yes Status: Acute Code(s): K85.90 - ACUTE PANCREATITIS WITHOUT NECROSIS OR INFECTION, UNSP SNOMED Code(s): 902996768 (2) Abdominal pain Current Visit: Yes Status: Acute Code(s): R10.9 - UNSPECIFIED ABDOMINAL PAIN SNOMED Code(s): 20383720 Plan: Supportive care Clear liquid diet Continue IV fluid hydration Continue pain control Encourage ambulation as tolerated Ultrasound of the abdomen and CT of the abdomen reviewed Patient will need follow-up and scheduling of MRI of the abdomen in 6 weeks after discharge and resolution of inflammation to rule out pancreatic mass Thank you for allowing us to participate in the care of the patient we will follow
--- NOTE | 2019-02-27 00:03 | PN ---
PROGRESS NOTE DATE OF SERVICE: 02/26/2019 This 69-year-old gentleman admitted with acute severe pancreatitis, being closely monitored. CT scan showed some inflammation in the tail of the pancreas. Patient is being closely monitored at this time. PAST MEDICAL HISTORY: Reviewed. REVIEW OF SYSTEM: Cardiovascular: No angina. RESPIRATORY: As mentioned earlier. GASTROINTESTINAL: As mentioned earlier. : No dysuria or retention. CENTRAL NERVOUS SYSTEM: No numbness or weakness. CURRENT MEDICATIONS: Reviewed and include: 1. Tylenol p.r.n. 2. [place] 7.5 q.6h p.r.n. 3. Xanax. 5. Trusopt. 6. Pepcid. 7. Heparin. 8. Dilaudid. 9. Narcan. 10.Zofran. 11.Desyrel. PHYSICAL EXAM: Patient is alert, oriented x3. Pulse is 72. Blood pressure 151/80. Respirations 16, temperature 98.2, pulse ox 97% on room air. HEENT: Conjunctivae normal. Oral mucosa moist. NECK is no jugular venous distention. No carotid bruit. No lymph node enlargement. CARDIOVASCULAR: S1, S2 muffled. RESPIRATION: Breath sounds diminished in the bases. A few scattered rhonchi and crackles. ABDOMEN: Soft. Mild diffuse tenderness in the epigastrium. No guarding. No rigidity. Mild diffuse distention present. Bowel sounds present. No ascites. No guarding. No rebound tenderness. LEGS no edema. No swelling. NERVOUS SYSTEM: Higher functions as mentioned earlier. Moves all 4 limbs. No focal motor or sensory deficits. LYMPHATICS: No lymph nodes palpable in the neck, axillae or groin. SKIN: No ulcer, no rash and no bleeding. JOINTS: No active deforming arthropathy. LAB STUDIES: WBC 7.2, hemoglobin 14.4. ASSESSMENT: 1. Acute severe pancreatitis with severe continued abdominal pain, elevated liver enzymes. 2. Hypertension. 3. Hyponatremia, present on admission. 4. Increased random blood sugar. 5. Elevated lipase and amylase. 6. History of hypoglycemia. 7. History of glaucoma. 8. Chronic pain syndrome. 9. History of appendectomy. 10.History of hernia repair. RECOMMENDATIONS AND DISCUSSION: In this 69-year-old gentleman who presented with multiple medical issues, we will monitor the patient closely. Continue the current medications, management and symptomatic treatment. We will repeat labs. Otherwise symptomatic treatment will be provided. Proton pump inhibitors. I would recommend IV Protonix. The patient is on clear liquids and advanced clear liquids with enzymes are showing diminishing trend and the patient is symptomatically better. Guarded prognosis. Further recommendations to follow. MMODL / IJN: [id number] / MTDD
[2019-02-27 07:00] LABS: Glucose,Whole Blood 109 mg/dL (75-99)
[2019-02-27] MEDS ORDERED: ONDANSETRON ODT 4 MG TAB PO PRN (07:34)
[2019-02-27] MEDS: PANTOPRAZOLE 40 MG TABLET PO SCH ×2 (07:37→16:14)
[2019-02-27] MEDS: HEPARIN SODIUM,PORCINE 5,000 UNIT/ML 1 ML VIAL SQ SCH ×3 (07:37→21:27)
[2019-02-27] MEDS: BRIMONIDINE TARTRATE 0.2% DROPS 5 ML BTL BOTH EYES SCH ×2 (07:38→21:27)
[2019-02-27] MEDS: FLUTICASONE 50MCG/SPRAY NASAL 16GM EA NOSTRIL SCH ×2 (07:39→21:27)
[2019-02-27] MEDS: LIDOCAINE 5% OINTMENT 50 GM JAR TOPICAL SCH ×2 (07:40→21:37)
[2019-02-27] MEDS: DORZOLAMIDE HCL 2% DROPS 10 ML BTL BOTH EYES SCH (07:40)
[2019-02-27 08:29] LABS: Basophils % (A) 1 %; Eosinophils # (A) 0.3 k/uL (0-0.7); Eosinophils % (A) 4 %; HCT 39.4 % (39.0-53.0); HGB 13.2 gm/dL (13.0-17.5); Lymphocytes # (A) 1.6 k/uL (1.0-4.8); Lymphocytes % (A) 22 %; MCH 32.2 pg (25.0-35.0); MCHC 33.6 g/dL (31.0-37.0); MCV 95.8 fL (80.0-100.0); Mean Platelet Volume 7.1; Monocytes # (A) 0.4 k/uL (0-1.0); Monocytes % (A) 5 %; Neutrophils # (A) 4.8 k/uL (1.3-7.7); Neutrophils % (A) 66 %; Platelet Count 290 k/uL (150-450); RBC 4.11 m/uL (4.30-5.90); RDW 12.7 % (11.5-15.5); WBC 7.4 k/uL (3.8-10.6)
[2019-02-27 08:35] LABS: African American GFR (CKD) >90 (>60 ml/min/1.73 sqM); Amylase 82 U/L (30-110); Anion Gap 14 mmol/L; Blood Urea Nitrogen 9 mg/dL (9-20); Calcium 9.7 mg/dL (8.4-10.2); Carbon Dioxide 26 mmol/L (22-30); Chloride 101 mmol/L (98-107); Glucose 101 mg/dL (74-99); Non-African American GFR(CKD) 87 (>60 ml/min/1.73 sqM); Potassium 4.1 mmol/L (3.5-5.1); Sodium 141 mmol/L (137-145)
[2019-02-27] MEDS: ALPRAZolam 0.5 MG TAB PO PRN (09:38)
[2019-02-27] MEDS: HYDROcodone/APAP 7.5-325MG 1 EACH TAB PO PRN (16:13)
[2019-02-27] MEDS ORDERED: ALBUTEROL NEBULIZED 2.5 MG/3 ML INHALATION PRN (16:56)
[2019-02-27 17:19] LABS: Glucose,Whole Blood 105 mg/dL (75-99)
--- NOTE | 2019-02-27 18:41 | PN ---
PROGRESS NOTE DATE OF SERVICE: 02/27/2019 This 69-year-old gentleman who was admitted with acute severe pancreatitis is being closely monitored. No chest pain. No palpitations. No fever. The most recent chest x-ray done which was reviewed personally by me showed minimal subsegmental atelectasis. No chest pain. No palpitations. Patient is able to tolerate diet. The lipase is 856. EXAM: Alert and oriented x3. Pulse is 58, blood pressure 144/92, respirations 16, temperature 97.7, pulse ox 97% on room air. HEENT: Conjunctivae normal. Oral mucosa moist. NECK: No jugular venous distention. No lymph node enlargement. CARDIOVASCULAR: S1, S2. RESPIRATORY: Diminished breath sounds at the bases. A few scattered rhonchi, no crackles. ABDOMEN: Soft, nontender. LEGS: No edema, no swelling. NERVOUS SYSTEM: No focal deficits. LABS: WBC 7.2, hemoglobin 13.2. The lipase is 856. ASSESSMENT: 1. Acute severe pancreatitis with severe continued abdominal pain with elevated liver enzymes. 2. Hypertension. 3. Bibasilar atelectasis. 4. Hyponatremia, present on admission. 5. Increased random blood sugar. 6. Elevated lipase, amylase. 7. History hypoglycemia. 8. History of glaucoma. 9. History of chronic pain syndrome. 10.History of appendectomy. 11.History of hernia repair. RECOMMENDATIONS AND DISCUSSION: Recommend to continue current medication, continue symptomatic treatment, continue the pain management. Advance diet. I would also recommend a course of bronchodilators. Guarded prognosis. Further recommendations to follow. MMODL / IJN: [id number] /
--- NOTE | 2019-02-27 18:56 | P.PN ---
Subjective Progress Note Date: 02/27/19 Principal diagnosis: Acute uncomplicated pancreatitis Setting bedside today, the patient reports abdominal pain much improved. He has tolerated her liquid diet and is asking for diet to be advanced today. Objective - Vital Signs Vital signs: Vital Signs Temp 98.1 F 02/27/19 05:59 Pulse 68 02/27/19 05:59 Resp 16 02/27/19 05:59 BP 158/73 02/27/19 05:59 Pulse Ox 98 02/27/19 05:59 Intake & Output 02/26/19 02/27/19 02/27/19 18:59 06:59 18:59 Intake Total 680 480 Balance 680 480 Intake: Oral 680 480 Other: Voiding Method Toilet Urinal # Voids 3 2 - Exam On physical examination, patient appears comfortable in no apparent distress. HEAD: Normocephalic, atraumatic. EYES: No scleral icterus. No conjunctival injection. MOUTH: No lesions, tongue midline. NECK: Trachea midline, no gross abnormalities. ABDOMEN: Soft, obese. Bowel sounds are positive. No organomegaly. No guarding or rigidity. EXTREMITIES: No pedal edema. SKIN: No rashes, no jaundice. NEUROLOGIC: Alert and oriented x3. No focal deficits. - Labs CBC & Chem 7: 02/27/19 07:46 02/27/19 07:46 Labs: Abnormal Lab Results - Last 24 Hours (Table) 02/27/19 02/27/19 02/27/19 Range/Units 06:58 07:46 07:46 RBC 4.11 L (4.30-5.90) m/uL Glucose 101 H (74-99) mg/dL POC Glucose (mg/dL) 109 H (75-99) mg/dL Lipase 856 H (23-300) U/L Assessment and Plan (1) Acute pancreatitis Narrative/Plan: 69-year-old male with a medical history significant for hypertension presenting with complaints of abdominal pain to the hospital and being found to have elevated lipase of 2480 and inflammation of the pancreatic tail on computed tomography scan of the abdomen. Unknown cause of the patient's pancreatitis with no excessive alcohol use, or imaging findings to suggest gallstones. Current Visit: Yes Status: Acute Code(s): K85.90 - ACUTE PANCREATITIS WITHOUT NECROSIS OR INFECTION, UNSP SNOMED Code(s): 896603875 (2) Abdominal pain Current Visit: Yes Status: Acute Code(s): R10.9 - UNSPECIFIED ABDOMINAL PAIN SNOMED Code(s): 96969279 Plan: Supportive care Clear liquid diet Continue IV fluid hydration Continue pain control Encourage ambulation as tolerated Ultrasound of the abdomen and CT of the abdomen reviewed Patient will need follow-up and scheduling of MRI of the abdomen in 6 weeks after discharge and resolution of inflammation to rule out pancreatic mass Okay for discharge tomorrow if pain is improved and tolerating medications and diet Thank you for allowing us to participate in the care of the patient
[2019-02-27] MEDS ORDERED: ALPRAZolam 0.5 MG TAB PO PRN (19:53)
[2019-02-27] MEDS ORDERED: ARTIFICIAL TEARS OINTMENT 3.5 GM TUBE BOTH EYES SCH (21:00)
[2019-02-27] MEDS: LATANOPROST 0.005% OPHTH DROPS 2.5 ML BTL BOTH EYES SCH (21:28)
[2019-02-27] MEDS: traZODone HCL 100 MG TAB PO SCH (21:31)
[2019-02-27] MEDS: ALBUTEROL NEBULIZED 2.5 MG/3 ML INHALATION SCH (22:03)
[2019-02-27 22:24] VITALS: RESP 18
[2019-02-28] MEDS: ACETAMINOPHEN TAB 325 MG TAB PO PRN (05:15)
[2019-02-28 05:54] VITALS: BP 149/82; PULSE 71; TEMP 97
[2019-02-28 06:57] LABS: Glucose,Whole Blood 106 mg/dL (75-99)
[2019-02-28] MEDS: HEPARIN SODIUM,PORCINE 5,000 UNIT/ML 1 ML VIAL SQ SCH (08:17)
[2019-02-28] MEDS: PANTOPRAZOLE 40 MG TABLET PO SCH (08:18)
[2019-02-28] MEDS: FLUTICASONE 50MCG/SPRAY NASAL 16GM EA NOSTRIL SCH (08:18)
[2019-02-28] MEDS: ALBUTEROL NEBULIZED 2.5 MG/3 ML INHALATION SCH ×3 (08:19→12:48)
[2019-02-28] MEDS: LIDOCAINE 5% OINTMENT 50 GM JAR TOPICAL SCH (08:19)
[2019-02-28] MEDS: BRIMONIDINE TARTRATE 0.2% DROPS 5 ML BTL BOTH EYES SCH (08:19)
[2019-02-28] MEDS: HYDROcodone/APAP 7.5-325MG 1 EACH TAB PO PRN (08:26)
[2019-02-28 08:56] LABS: Basophils # (A) 0.1 k/uL (0-0.2); Basophils % (A) 1 %; Eosinophils # (A) 0.4 k/uL (0-0.7); Eosinophils % (A) 5 %; HCT 42.4 % (39.0-53.0); HGB 13.7 gm/dL (13.0-17.5); Lymphocytes # (A) 1.8 k/uL (1.0-4.8); Lymphocytes % (A) 23 %; MCH 31.2 pg (25.0-35.0); MCHC 32.3 g/dL (31.0-37.0); MCV 96.7 fL (80.0-100.0); Monocytes # (A) 0.4 k/uL (0-1.0); Monocytes % (A) 5 %; Neutrophils # (A) 5.1 k/uL (1.3-7.7); Neutrophils % (A) 65 %; Platelet Count 319 k/uL (150-450); RBC 4.39 m/uL (4.30-5.90); RDW 12.8 % (11.5-15.5); WBC 7.9 k/uL (3.8-10.6)
[2019-02-28] MEDS ORDERED: MULTIVITAMINS, THERA 1 EACH TAB PO SCH (09:00)
[2019-02-28 09:09] LABS: Calcium 9.6 mg/dL (8.4-10.2); Potassium 4.9 mmol/L (3.5-5.1)
[2019-02-28 11:22] VITALS: BMI 25.8
[2019-02-28 11:54] LABS: Glucose,Whole Blood 113 mg/dL (75-99)
--- NOTE | 2019-03-01 08:43 | DS ---
DISCHARGE SUMMARY DATE OF SERVICE: 02/28/2019 FINAL DIAGNOSES: 1. Acute severe pancreatitis with severe continued abdominal pain with elevated liver enzymes, improved. 2. Hypertension. 3. Bibasilar atelectasis. 4. Hyponatremia, present on admission. 5. Increased random blood sugar. 6. Elevated lipase and amylase. 7. History of hypoglycemia. 8. History of glaucoma. 9. History of chronic pain syndrome. 10.History of appendectomy. 11.History of hernia repair. DISCHARGE DISPOSITION: The patient will be discharged in a stable condition with guarded prognosis. HISTORY OF PRESENT ILLNESS: This is a 69-year-old gentleman who was admitted with multiple medical problems including severe pancreatitis was treated symptomatically. Patient improved significantly. Dr. Amaro saw the patient and liver ultrasound was also done which showed slight prominence of the pancreatic duct. The amylase and lipase improved significantly, and currently the amylase is 110 and lipase is 1256; however, recommend the patient follow up primarily outpatient setting and obtain repeat CT scan or an MRI of the pancreas to ensure normalcy within the next few weeks to a couple months, otherwise. DISCHARGE ADVICE: 1. Discharge diet is cardiac, soft, low fat. 2. Activity limited until followup. 3. Follow up with [facility], Dr. Kelly in 2-3 days. 4. Follow up with Dr. Amaro as recommended. MEDICATIONS ARE: 1. Brimonidine eye drops. 2. Calcium carbonate with vitamin 1 p.o. daily. 3. Claritin 10 mg p.o. daily. 4. Desyrel 100 mg q.h.s. 5. Fish oil 1 p.o. daily. 6. Flonase 1 spray daily. 7. Mineral oil. 8. MiraLAX 17 g p.o. daily. 9. Multivitamin 1 p.o. daily. 10.Xalatan 1 drop both eyes. 11.Xanax 0.5 daily. 12.Xylocaine ointment daily. 13.[place] 7.5 mg q.6 p.r.n. 14.Protonix 40 mg daily. 15.Tylenol 650 q.6 p.r.n. Once again, the patient will be discharged in stable condition with guarded prognosis. MMODL / IJN: [id number] /
== END 2019-02-28 14:40 | disposition home or self-care (01) | DRG 439 ==
LOC: EC 01:20 → 4SSUR 03:22 → 6NMEDSUR 14:04
PROVIDERS: ADMIT Hospitalist; ATTEND Hospitalist
DX: K85.90 Acute pancreatitis without necrosis or infection, unspecified (principal); E87.1 Hypo-osmolality and hyponatremia; J98.11 Atelectasis; G89.4 Chronic pain syndrome; I10 Essential (primary) hypertension; M54.2 Cervicalgia; Z79.1 Long term (current) use of non-steroidal anti-inflammatories (NSAID); Z82.49 Family history of ischemic heart disease and other diseases of the circulatory system; Z90.49 Acquired absence of other specified parts of digestive tract; Z83.3 Family history of diabetes mellitus; Z88.9 Allergy status to unspecified drugs, medicaments and biological substances
CPT/HCPCS: 36415; 71045; 74018; 74019; 74177; 76705; 80048; 80053; 80061; 81001; 82150; 83605; 83690; 84484; 85025; 93005; 96361; 96374; 96375; 99285

== ENCOUNTER → 2019-04-16 | Outpatient (CLI) | payer OTHER ==
--- NOTE | 2019-04-17 04:16 | MR ---
EXAMINATION TYPE: MR abdomen wo/w con DATE OF EXAM: 04/16/2019 COMPARISON: CT abdomen pelvis 02/23/2019 HISTORY: Acute pancreatitis CONTRAST: Standard multiplanar, multisequence MRI departmental protocol utilizing 7 mL intravenous Gadavist robert olinium contrast. Liver shows no focal defect. Bile ducts are not dilated. Gallbladder appears normal. There is no evid ence of pleural effusion. Spleen is intact. The pancreas has normal size. There is minimal thickening at the tip of the tail of the pancreas. There is very slight increased fluid signal at the tail of t he pancreas adjacent to the spleen. Pancreatic duct appears normal. There is no evidence of pancreati c mass. Stomach is intact. There is no adrenal mass. Kidneys have fairly normal size and contour. There is 2 cm cortical cyst la teral left kidney. There is no retroperitoneal adenopathy. There is no free fluid in the abdomen. The contrast images show no pathologic enhancement. There is no evidence of pancreatic mass on the contr ast images. There is normal enhancement of the portal venous system. 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 IMPRESSION: There is very slight thickening of the tip of the tail of the pancreas and small 2 x 1 cm fluid colle ction that could be the residual of acute pancreatitis compared to the recent CT scan of 02/23/2019.
== END | disposition home or self-care (01) ==
LOC: RADMRIMAIN 07:47
PROVIDERS: ATTEND Internal Medicine
DX: K86.89 Other specified diseases of pancreas (principal)
CPT/HCPCS: 74183; A9585

== ENCOUNTER 2019-08-04 20:40 | Inpatient (IN) | payer OTHER, MEDICARE ==
[2019-08-04] MEDS ORDERED: MORPHINE SULFATE 4 MG/ML SYRINGE IVP STA (22:05)
[2019-08-04] MEDS ORDERED: SODIUM CHLORIDE 0.9% 1,000 ML IV ONE ×2 (22:19→23:46)
[2019-08-04] MEDS ORDERED: ONDANSETRON 4 MG/2 ML VIAL IVP STA (22:19)
[2019-08-04 22:40] LABS: Basophils % (A) 0 %; Eosinophils # (A) 0.1 k/uL (0-0.7); Eosinophils % (A) 1 %; HCT 43.8 % (39.0-53.0); HGB 14.9 gm/dL (13.0-17.5); Lymphocytes # (A) 1.1 k/uL (1.0-4.8); Lymphocytes % (A) 9 %; MCH 33.3 pg (25.0-35.0); MCHC 34.1 g/dL (31.0-37.0); MCV 97.6 fL (80.0-100.0); Mean Platelet Volume 6.8; Monocytes # (A) 0.3 k/uL (0-1.0); Monocytes % (A) 3 %; Neutrophils # (A) 10.3 k/uL (1.3-7.7); Neutrophils % (A) 87 %; Platelet Count 295 k/uL (150-450); RBC 4.49 m/uL (4.30-5.90); RDW 13.2 % (11.5-15.5); WBC 11.9 k/uL (3.8-10.6)
[2019-08-04 22:44] LABS: ALT 20 U/L (4-49); AST 30 U/L (17-59); African American GFR (CKD) >90 (>60 ml/min/1.73 sqM); Alkaline Phosphatase 87 U/L (38-126); Anion Gap 10 mmol/L; Blood Urea Nitrogen 9 mg/dL (9-20); Calcium 9.9 mg/dL (8.4-10.2); Carbon Dioxide 25 mmol/L (22-30); Chloride 102 mmol/L (98-107); Glucose 162 mg/dL (74-99); Non-African American GFR(CKD) >90 (>60 ml/min/1.73 sqM); Potassium 4.3 mmol/L (3.5-5.1); Sodium 137 mmol/L (137-145); Total Bilirubin 0.6 mg/dL (0.2-1.3); Total Protein 8.4 g/dL (6.3-8.2)
[2019-08-04] MEDS ORDERED: HYDROmorphone 1 MG/ML 1 ML SYRINGE IVP STA (22:53)
[2019-08-04 23:10] LABS: Appearance,Urine Clear (Clear); Bilirubin,Urine Negative (Negative); Blood,Urine Small (Negative); Color,Urine Light Yellow; Glucose,Urine (UA) 1+ (Negative); Ketones,Urine 1+ (Negative); Leukocyte Esterase,Urine Negative (Negative); Mucus,Urine Rare /hpf; Nitrite,Urine Negative (Negative); Protein,Urine Trace (Negative); RBC,Urine 9 /hpf (0-5); Specific Gravity,Urine 1.013 (1.001-1.035); Urobilinogen,Urine <2.0 mg/dL (<2.0); WBC,Urine 1 /hpf (0-5)
[2019-08-04 23:43] LABS: Amylase 426 U/L (30-110)
--- NOTE | 2019-08-05 00:27 | ED ---
Abdominal Pain HPI - General Source: patient Mode of arrival: wheelchair Limitations: no limitations <Diane Jameson - Last Filed: 08/05/19 00:16> <Jarrod Ross - Last Filed: 08/06/19 07:47> - General Chief Complaint: Abdominal Pain Stated Complaint: Abd Pain Time Seen by Provider: 08/04/19 21:12 - History of Present Illness Initial Comments: 69-year-old male patient presents to the emergency department today for evaluation of abdominal pain. Patient states the abdominal pain is generalized. States he has been nauseated has been vomiting up clear fluid. States the pain started earlier today and has worsened significantly. He does have a history of pancreatitis but states this feels worse. Denies any alcohol or drug use. States he follows a very strict diet with no dairy, low-fat, and no alcohol. Patient has had previous right inguinal hernia repair and appendectomy. Patient did have MRI in March for follow-up with his pancreatitis which showed thickening of the pancreatic tail which they thought was related to sequela from the pancreatitis episode at the beginning of February. Patient states he feels really hot that he is unsure about having a fever. Denies any constipation or diarrhea. Denies any hematochezia, melena, or hematemesis. Patient denies any recent rash, cough, shortness of breath, chest pain, back pain, numbness, tingling, dizziness, weakness, hematuria, dysuria, urinary urgency, urinary frequency, headache, visual changes, or any other complaints. (Diane Jameson) - Related Data Home Medications Medication Instructions Recorded Confirmed ALPRAZolam [Xanax] 0.25 mg PO BID 02/23/19 08/05/19 Calcium Carbonate/Vitamin D3 1 tab PO DAILY 02/23/19 08/05/19 [Calcium 500-Vit D3 200 Tablet] Latanoprost [Xalatan 0.005%] 1 drop BOTH EYES HS 02/23/19 08/05/19 Multivitamins, Thera [Multivitamin 1 tab PO DAILY 02/23/19 08/05/19 (formulary)] Brimonidine Tartrate [Alphagan P 1 drops BOTH EYES BID 02/27/19 08/05/19 0.2% Ophth Soln] traZODone HCL [Desyrel] 50 mg PO HS 08/05/19 08/05/19 Previous Rx's Medication Instructions Recorded Pantoprazole [Protonix] 40 mg PO AC-BID #60 tablet. 02/28/19 Allergies Allergy/AdvReac Type Severity Reaction Status Date / Time Yihhfir-Hrs-Hbb Reductase AdvReac MUSCLE PAIN Verified 08/05/19 07:20 Inhibitor Review of Systems ROS Other: All systems not noted in ROS Statement are negative. <Diane Jameson - Last Filed: 08/05/19 00:16> ROS Other: All systems not noted in ROS Statement are negative. <Jarrod Ross - Last Filed: 08/06/19 07:47> ROS Statement: Those systems with pertinent positive or pertinent negative responses have been documented in the HPI. Past Medical History Past Medical History: Hypertension Additional Past Medical History / Comment(s): hypoglycemic, glaucoma, chronic pain in neck/back/hip, History of Any Multi-Drug Resistant Organisms: None Reported Past Surgical History: Appendectomy, Hernia Repair Past Psychological History: No Psychological Hx Reported Smoking Status: Never smoker Past Alcohol Use History: None Reported Past Drug Use History: None Reported - Past Family History Mother Family Medical History: Diabetes Mellitus, Hypertension Father Family Medical History: Cancer <Diane Jameson - Last Filed: 08/05/19 00:16> General Exam Limitations: no limitations General appearance: alert, in no apparent distress, other (This is a well- developed, well-nourished elderly male patient in no acute distress. Vital signs upon presentation are temperature 98.1F, pulse 56, respirations 18, blood pressure 193/83, pulse ox 100% on room air) Eye exam: Present: normal appearance, PERRL, EOMI. Absent: scleral icterus, conjunctival injection, periorbital swelling ENT exam: Present: normal exam, normal oropharynx, mucous membranes moist Respiratory exam: Present: normal lung sounds bilaterally. Absent: respiratory distress, wheezes, rales, rhonchi, stridor Cardiovascular Exam: Present: regular rate, normal rhythm, normal heart sounds. Absent: systolic murmur, diastolic murmur, rubs, gallop, clicks GI/Abdominal exam: Present: soft, tenderness (Generalized), normal bowel sounds. Absent: distended, guarding, rebound, rigid Neurological exam: Present: alert, oriented X3, CN II-XII intact Psychiatric exam: Present: normal affect, normal mood Skin exam: Present: warm, dry, intact, normal color. Absent: rash <Diane Jameson - Last Filed: 08/05/19 00:16> Course Vital Signs 08/04/19 08/05/19 08/05/19 21:02 00:27 02:46 Temperature 98.1 F Pulse Rate 56 L 74 64 Pulse Rate [ Left] Respiratory 18 18 17 Rate Blood Pressure 193/83 152/83 161/89 Blood Pressure [Left Arm] O2 Sat by Pulse 100 99 96 Oximetry 08/05/19 08/05/19 06:41 07:35 Temperature 97.3 F L 97.3 F L Pulse Rate 69 Pulse Rate [ 72 Left] Respiratory 18 Rate Blood Pressure 145/89 Blood Pressure 151/83 [Left Arm] O2 Sat by Pulse 96 98 Oximetry Medical Decision Making - Lab Data Result diagrams: 08/04/19 22:22 08/04/19 22:22 <Diane Jameson - Last Filed: 08/05/19 00:16> - Lab Data Result diagrams: 08/06/19 06:37 08/04/19 22:22 <Jarrod Ross - Last Filed: 08/06/19 07:47> - Medical Decision Making 69-year-old male patient presents to the emergency department today for evaluation of generalized abdominal pain. Physical examination did reveal generalized tenderness especially over the midepigastric region. Labs reviewed and did reveal elevated amylase and lipase. The patient does have history of pancreatitis area denies drinking alcohol, states he fells a strict diet due to the history. He did have MRI in March which showed some mild detail thickening of the pancreas which they felt to be sacral left from previous pancreatitis episode in February. We did give pain medication IV fluids. Upon reevaluation patient is resting comfortably in bed states he does feel better. We will admit to the hospital for continued IV antibiotics and pain management. We will consult Dr. Amaro whom he sees on an outpatient basis. (Diane Jameson) I saw this patient in conjunction with the physician case management assistant. I performed independent history and physical exam. Agree with case management. (Jarrod Ross) - Lab Data Lab Results 08/04/19 08/04/19 08/04/19 Range/Units 22:22 22:22 22:22 WBC 11.9 H (3.8-10.6) k/uL RBC 4.49 (4.30-5.90) m/uL Hgb 14.9 (13.0-17.5) gm/dL Hct 43.8 (39.0-53.0) % MCV 97.6 (80.0-100.0) fL MCH 33.3 (25.0-35.0) pg MCHC 34.1 (31.0-37.0) g/dL RDW 13.2 (11.5-15.5) % Plt Count 295 (150-450) k/uL Neutrophils % 87 % Lymphocytes % 9 % Monocytes % 3 % Eosinophils % 1 % Basophils % 0 % Neutrophils # 10.3 H (1.3-7.7) k/uL Lymphocytes # 1.1 (1.0-4.8) k/uL Monocytes # 0.3 (0-1.0) k/uL Eosinophils # 0.1 (0-0.7) k/uL Basophils # 0.0 (0-0.2) k/uL Sodium 137 (137-145) mmol/L Potassium 4.3 (3.5-5.1) mmol/L Chloride 102 (98-107) mmol/L Carbon Dioxide 25 (22-30) mmol/L Anion Gap 10 mmol/L BUN 9 (9-20) mg/dL Creatinine 0.77 (0.66-1.25) mg/dL Est GFR (CKD-EPI)AfAm >90 (>60 ml/min/1.73 sqM) Est GFR (CKD-EPI)NonAf >90 (>60 ml/min/1.73 sqM) Glucose 162 H (74-99) mg/dL Plasma Lactic Acid [place] 1.3 (0.7-2.0) mmol/L Calcium 9.9 (8.4-10.2) mg/dL Total Bilirubin 0.6 (0.2-1.3) mg/dL AST 30 (17-59) U/L ALT 20 (4-49) U/L Alkaline Phosphatase 87 (38-126) U/L Troponin I (0.000-0.034) ng/mL Total Protein 8.4 H (6.3-8.2) g/dL Albumin 5.0 (3.5-5.0) g/dL Amylase 426 H* (30-110) U/L Lipase 3910 H (23-300) U/L Urine Color Urine Appearance (Clear) Urine pH (5.0-8.0) Ur Specific [place] (1.001-1.035) Urine Protein (Negative) Urine Glucose (UA) (Negative) Urine Ketones (Negative) Urine Blood (Negative) Urine Nitrite (Negative) Urine Bilirubin (Negative) Urine Urobilinogen (<2.0) mg/dL Ur Leukocyte Esterase (Negative) Urine RBC (0-5) /hpf Urine WBC (0-5) /hpf Urine Mucus (None) /hpf 08/04/19 08/04/19 Range/Units 22:22 22:55 WBC (3.8-10.6) k/uL RBC (4.30-5.90) m/uL Hgb (13.0-17.5) gm/dL Hct (39.0-53.0) % MCV (80.0-100.0) fL MCH (25.0-35.0) pg MCHC (31.0-37.0) g/dL RDW (11.5-15.5) % Plt Count (150-450) k/uL Neutrophils % % Lymphocytes % % Monocytes % % Eosinophils % % Basophils % % Neutrophils # (1.3-7.7) k/uL Lymphocytes # (1.0-4.8) k/uL Monocytes # (0-1.0) k/uL Eosinophils # (0-0.7) k/uL Basophils # (0-0.2) k/uL Sodium (137-145) mmol/L Potassium (3.5-5.1) mmol/L Chloride (98-107) mmol/L Carbon Dioxide (22-30) mmol/L Anion Gap mmol/L BUN (9-20) mg/dL Creatinine (0.66-1.25) mg/dL Est GFR (CKD-EPI)AfAm (>60 ml/min/1.73 sqM) Est GFR (CKD-EPI)NonAf (>60 ml/min/1.73 sqM) Glucose (74-99) mg/dL Plasma Lactic Acid [place] (0.7-2.0) mmol/L Calcium (8.4-10.2) mg/dL Total Bilirubin (0.2-1.3) mg/dL AST (17-59) U/L ALT (4-49) U/L Alkaline Phosphatase (38-126) U/L Troponin I <0.012 (0.000-0.034) ng/mL Total Protein (6.3-8.2) g/dL Albumin (3.5-5.0) g/dL Amylase (30-110) U/L Lipase (23-300) U/L Urine Color Light Yellow Urine Appearance Clear (Clear) Urine pH 8.0 (5.0-8.0) Ur Specific [place] 1.013 (1.001-1.035) Urine Protein Trace H (Negative) Urine Glucose (UA) 1+ H (Negative) Urine Ketones 1+ H (Negative) Urine Blood Small H (Negative) Urine Nitrite Negative (Negative) Urine Bilirubin Negative (Negative) Urine Urobilinogen <2.0 (<2.0) mg/dL Ur Leukocyte Esterase Negative (Negative) Urine RBC 9 H (0-5) /hpf Urine WBC 1 (0-5) /hpf Urine Mucus Rare H (None) /hpf Disposition Decision to Admit Reason: Admit from [facility] Decision Date: 08/05/19 Decision Time: 00:28 <Diane Jameson - Last Filed: 08/05/19 00:16> <Jarrod Ross - Last Filed: 08/06/19 07:47> Clinical Impression: Acute pancreatitis Disposition: ADMITTED IP TO THIS [facility] Condition: Serious
[2019-08-05] MEDS ORDERED: ONDANSETRON 4 MG/2 ML VIAL IVP PRN (00:29)
[2019-08-05] MEDS ORDERED: NALOXONE 0.4 MG/ML 1 ML VIAL IV PRN (00:29)
[2019-08-05] MEDS: SODIUM CHLORIDE 0.9% 1,000 ML IV SCH ×3 (01:31→16:41)
[2019-08-05] MEDS: HYDROmorphone 1 MG/ML 1 ML SYRINGE IVP PRN ×3 (02:49→10:18)
--- NOTE | 2019-08-05 14:32 | P.HPIM ---
History of Present Illness 69-year-old pleasant male came in with compensative /10 epigastric abdominal pain nonradiating along with nausea vomiting found to have highly elevated lipase. Patient denied any fever chills. Patient denied any dysuria. Patient denied any history of alcohol is him.his liver enzymes are within normal limits and the patient still has his gallbladder. Review of Systems REVIEW OF SYSTEMS: CONSTITUTIONAL: No fever, no malaise, no fatigue. HEENT: No recent visual problems or hearing problems. Denied any sore throat. CARDIOVASCULAR: No chest pain, orthopnea, PND, no palpitations, no syncope. PULMONARY: No shortness of breath, no cough, no hemoptysis. GASTROINTESTINAL: as mentioned in HPI NEUROLOGICAL: No headaches, no weakness, no numbness. HEMATOLOGICAL: Denies any bleeding or petechiae. GENITOURINARY: Denies any burning micturition, frequency, or urgency. MUSCULOSKELETAL/RHEUMATOLOGICAL: Denies any joint pain, swelling, or any muscle pain. ENDOCRINE: Denies any polyuria or polydipsia. The rest of the 14-point review of systems is negative. Past Medical History Past Medical History: Hypertension Additional Past Medical History / Comment(s): hypoglycemic, glaucoma, chronic pain in neck/back/right hip, pancreatitis History of Any Multi-Drug Resistant Organisms: None Reported Past Surgical History: Appendectomy, Hernia Repair Smoking Status: Never smoker - Past Family History Mother Family Medical History: Diabetes Mellitus, Hypertension Father Family Medical History: Cancer Medications and Allergies Home Medications Medication Instructions Recorded Confirmed Type ALPRAZolam [Xanax] 0.25 mg PO BID 02/23/19 08/05/19 History Calcium Carbonate/Vitamin D3 1 tab PO DAILY 02/23/19 08/05/19 History [Calcium 500-Vit D3 200 Tablet] Latanoprost [Xalatan 0.005%] 1 drop BOTH EYES HS 02/23/19 08/05/19 History Multivitamins, Thera [Multivitamin 1 tab PO DAILY 02/23/19 08/05/19 History (formulary)] Brimonidine Tartrate [Alphagan P 1 drops BOTH EYES BID 02/27/19 08/05/19 History 0.2% Ophth Soln] Pantoprazole [Protonix] 40 mg PO AC-BID #60 tablet. 02/28/19 08/05/19 Rx traZODone HCL [Desyrel] 50 mg PO HS 08/05/19 08/05/19 History Allergies Allergy/AdvReac Type Severity Reaction Status Date / Time Pbgprdd-Iqf-Rar Reductase AdvReac MUSCLE PAIN Verified 08/05/19 07:20 Inhibitor Physical Exam Vitals: Vital Signs Temp Pulse Pulse Resp BP BP Pulse Ox 08/05/19 11:35 97.7 F 69 18 158/78 98 08/05/19 10:10 98.2 F 63 18 171/86 99 08/05/19 07:35 97.3 F L 72 151/83 98 08/05/19 06:41 97.3 F L 69 18 145/89 96 08/05/19 02:46 64 17 161/89 96 08/05/19 00:27 74 18 152/83 99 08/04/19 21:02 98.1 F 56 L 18 193/83 100 Intake and Output 08/04/19 08/05/19 08/05/19 22:59 06:59 14:59 Intake Total 200 Output Total 440 Balance -240 Intake: Intake, IV Titration 200 Amount Sodium Chloride 0.9% 1, 200 000 ml @ 200 mls/hr IV . Q5H [facility] Rx#:[id number] Output: Urine 440 Other: Voiding Method Urinal Weight 73.482 kg 73.482 kg PHYSICAL EXAMINATION: GENERAL: The patient is alert and oriented x3, not in any acute distress. Well developed, well nourished. HEENT: Pupils are round and equally reacting to light. EOMI. No scleral icterus. No conjunctival pallor. Normocephalic, atraumatic. No pharyngeal erythema. No thyromegaly. CARDIOVASCULAR: S1 and S2 present. No murmurs, rubs, or gallops. PULMONARY: Chest is clear to auscultation, no wheezing or crackles. ABDOMEN: moderate to severe epigastric tenderness, nondistended, normoactive bowel sounds. No palpable organomegaly. MUSCULOSKELETAL: No joint swelling or deformity. EXTREMITIES: No cyanosis, clubbing, or pedal edema. NEUROLOGICAL: Gross neurological examination did not reveal any focal deficits. SKIN: No rashes. Results CBC & Chem 7: 08/04/19 22:22 08/04/19 22:22 Labs: Abnormal Lab Results - Last 24 Hours (Table) 08/04/19 08/04/19 08/04/19 Range/Units 22:22 22:22 22:55 WBC 11.9 H (3.8-10.6) k/uL Neutrophils # 10.3 H (1.3-7.7) k/uL Glucose 162 H (74-99) mg/dL Total Protein 8.4 H (6.3-8.2) g/dL Amylase 426 H* (30-110) U/L Lipase 3910 H (23-300) U/L Urine Protein Trace H (Negative) Urine Glucose (UA) 1+ H (Negative) Urine Ketones 1+ H (Negative) Urine Blood Small H (Negative) Urine RBC 9 H (0-5) /hpf Urine Mucus Rare H (None) /hpf Thrombosis Risk Factor Assmnt - Choose All That Apply Other Risk Factors: Yes Each Risk Factor Represents 2 Points: Age 61-74 years Thrombosis Risk Factor Assessment Total Risk Factor Score: 2 Thrombosis Risk Factor Assessment Level: Low Risk Assessment and Plan Plan: -acute pancreatitis will obtain ultrasound of the gallbladder to rule out any gallstone pancreatitis. Patient denied any alcohol abuse will also get likely panel for tomorrow.Continue with the pain medications the including IV Tylenol Toradol, as needed Dilaudid along with Protonixpatient is on IV fluids at 1 25 mL per hour now patient will be nothing by mouth if patient's symptoms improve patient will be started on clear liquid diet tomorrow -hypertension -hypoglycemia will obtain hemoglobin A1c -Anxiety disorder -DVT prophylaxis with Lovenox. GI prophylaxis with Protonix
[2019-08-05] MEDS: KETOROLAC 30 MG/ML 1 ML VIAL IVP PRN ×2 (15:00→22:21)
--- NOTE | 2019-08-05 16:02 | US ---
EXAMINATION TYPE: US gallbladder DATE OF EXAM: 08/05/2019 COMPARISON: MR dated 04/16/2019, US dated 02/24/2019 , & CT dated 02/23/2019 CLINICAL HISTORY: Pancreatitis. EXAM MEASUREMENTS: Liver Length: 12.1 cm Gallbladder Wall: 0.2 cm CBD: not seen with certainty Right Kidney: 10.4 x 6.2 x 4.5 cm Extremely limited exam due to excessive midline bowel gas. Pancreas: not seen due to bowel gas Liver: limited views due to bowel gas, periportal increased echogenicity is noted as on prior exam, there is coarse echotexture Gallbladder: Limited views, no evident stone Evidence for sonographic Saxena's sign: No CBD: not seen, no intraductal dilatation noted Right Kidney: No hydronephrosis or masses seen There is no ascites evident. IMPRESSION: There may be underlying hepatic steatosis. Right portal hyper echogenicity can be seen in such entities as inflammatory bowel disease and cholangitis, cholecystitis and parasite infection. E xam is limited.
[2019-08-05] MEDS: ACETAMINOPHEN IV (For NPO) 1,000 MG in EMPTY BAG 1 BAG IVPB PRN ×2 (16:41→22:33)
--- NOTE | 2019-08-05 19:44 | CONS ---
CONSULTATION DATE OF DICTATION: 08/05/2019 REASON FOR CONSULTATION: Acute recurrent pancreatitis. HISTORY OF PRESENT ILLNESS: The patient is a 69-year-old pleasant white male admitted to the hospital with episodes of severe epigastric pain that started yesterday with several episodes of nausea and vomiting. In the emergency room he was noted to have elevated amylase and lipase consistent with acute pancreatitis. He had a similar episode in January of 2019 and was admitted to [facility] for 4 days with elevated amylase and lipase. He was seen by Dr. Amaro. CT of the abdomen at that time showed evidence of inflammatory changes in the pancreas consistent with acute pancreatitis. He had an MRI of the pancreas done in March as a part of followup by Dr. Amaro which showed a small pseudocyst formation in the tail of the pancreas. The patient denies any alcohol use. Previous imaging studies did not show any evidence of gallstones. There is no family history of pancreatitis. He reports no fever, chills, night sweats. PAST MEDICAL HISTORY: Past medical history is significant for hypertension and previous episode of pancreatitis in January of 2019. PAST SURGICAL HISTORY: Appendectomy, hernia repair. MEDICATIONS: Medications at home include calcium, vitamin D3, lidocaine ointment, Claritin, multivitamin, trazodone, MiraLAX, Xanax. ALLERGIES: SOCIAL HISTORY: No smoking. No alcohol use. FAMILY HISTORY: Mother has diabetes mellitus and hypertension. Father had some cancer. REVIEW OF SYSTEMS: CARDIOPULMONARY: No chest pain or shortness of breath. GENITOURINARY: No dysuria or hematuria. MUSCULOSKELETAL: Unremarkable. SKIN: Unremarkable. ENDOCRINE: Unremarkable. PSYCHIATRIC: Unremarkable. NEUROLOGY: Unremarkable. ENT/VISION: Unremarkable. CONSTITUTIONAL: No recent weight loss. No fever, chills, night sweats. ONCOLOGY: Unremarkable. PHYSICAL EXAMINATION: He appears comfortable. No apparent distress. Vital signs are stable. Blood pressure is 158/78, pulse rate 59, temperature 97. HEENT examination unremarkable. Conjunctivae pink. Sclerae anicteric. Oral cavity no lesions. NECK: No JVD or lymph node enlargement. CHEST: Clear to auscultation. HEART: Regular rate and rhythm. ABDOMEN: Soft. Bowel sounds are positive. No organomegaly. There was tenderness in the epigastric area. Rest of the abdomen was benign. EXTREMITIES: No pedal edema. SKIN: No rashes. NEUROLOGIC: Alert and oriented x3. No focal deficits. LABS: WBC 11.9, hemoglobin 14.9, platelets normal. Basic metabolic panel is within normal limits. Lipase is 3910 and amylase is 428. ALT, AST, T-bilirubin and alkaline phosphatase are normal. IMPRESSION: Acute recurrent pancreatitis, this being his second episode. The patient has no history of alcohol abuse. Previous imaging studies did not show any evidence of gallstones. At this time etiology of pancreatitis remains unclear. Serum fasting triglycerides obtained during past admission in January was normal. He does not have any family history of acute pancreatitis. RECOMMENDATIONS: 1. Start him on a clear liquid diet. 2. Pain medications. 3. Aggressive IV hydration. 4. Symptomatic supportive care. 5. Obtain IgG4 levels to evaluate for autoimmune pancreatitis. 6. Discussed with him that following discharge from the hospital he needs to be investigated further with an endoscopic ultrasound of the pancreas, which will be scheduled on an outpatient basis. Will follow with you closely. Thank you for this consultation. TUL / HARVINDERN: [id number] /
[2019-08-05] MEDS: ALPRAZolam 0.25 MG TAB PO SCH (20:55)
[2019-08-05] MEDS: LATANOPROST 0.005% OPHTH DROPS 2.5 ML BTL BOTH EYES SCH (20:55)
[2019-08-05] MEDS: traZODone HCL 50 MG TAB PO SCH (20:55)
[2019-08-05] MEDS: BRIMONIDINE TARTRATE 0.2% DROPS 5 ML BTL BOTH EYES SCH (20:55)
[2019-08-06] MEDS: SODIUM CHLORIDE 0.9% 1,000 ML IV SCH ×5 (02:23→21:06)
[2019-08-06] MEDS: KETOROLAC 30 MG/ML 1 ML VIAL IVP PRN (04:02)
[2019-08-06] MEDS: ACETAMINOPHEN IV (For NPO) 1,000 MG in EMPTY BAG 1 BAG IVPB PRN (04:06)
[2019-08-06 07:45] LABS: Basophils % (A) 0 %; Eosinophils # (A) 0.3 k/uL (0-0.7); Eosinophils % (A) 3 %; HCT 43.5 % (39.0-53.0); HGB 13.8 gm/dL (13.0-17.5); Lymphocytes # (A) 1.6 k/uL (1.0-4.8); Lymphocytes % (A) 16 %; MCH 31.3 pg (25.0-35.0); MCHC 31.8 g/dL (31.0-37.0); MCV 98.5 fL (80.0-100.0); Mean Platelet Volume 6.9; Monocytes # (A) 0.3 k/uL (0-1.0); Monocytes % (A) 3 %; Neutrophils # (A) 7.4 k/uL (1.3-7.7); Neutrophils % (A) 76 %; Platelet Count 268 k/uL (150-450); RBC 4.41 m/uL (4.30-5.90); RDW 13.2 % (11.5-15.5); WBC 9.7 k/uL (3.8-10.6)
[2019-08-06 07:57] LABS: ALT 15 U/L (4-49); AST 28 U/L (17-59); African American GFR (CKD) >90 (>60 ml/min/1.73 sqM); Albumin 3.8 g/dL (3.5-5.0); Alkaline Phosphatase 54 U/L (38-126); Anion Gap 8 mmol/L; Blood Urea Nitrogen 7 mg/dL (9-20); Calcium 8.6 mg/dL (8.4-10.2); Carbon Dioxide 26 mmol/L (22-30); Chloride 105 mmol/L (98-107); Cholesterol 150 mg/dL (<200); Glucose 83 mg/dL (74-99); HDL Cholesterol 28 mg/dL (40-60); LDL Cholesterol,Calculated 97 mg/dL (0-99); Non-African American GFR(CKD) 89 (>60 ml/min/1.73 sqM); Potassium 3.9 mmol/L (3.5-5.1); Sodium 139 mmol/L (137-145); Total Bilirubin 0.8 mg/dL (0.2-1.3); Total Protein 6.7 g/dL (6.3-8.2); Triglycerides 127 mg/dL (<150)
[2019-08-06] MEDS: ENOXAPARIN 40 MG/0.4 ML SYRINGE SQ SCH (08:30)
[2019-08-06] MEDS: ALPRAZolam 0.25 MG TAB PO SCH ×2 (08:30→21:05)
[2019-08-06] MEDS: BRIMONIDINE TARTRATE 0.2% DROPS 5 ML BTL BOTH EYES SCH ×2 (08:33→21:05)
[2019-08-06] MEDS: HYDROcodone/APAP 5-325MG 1 EACH TAB PO PRN (11:01)
[2019-08-06 11:56] LABS: IgG Subclass 3 23.6 mg/dL (11.0-85.0); IgG Subclass 4 43.7 mg/dL (3.0-175.0)
[2019-08-06] MEDS ORDERED: HYDROmorphone 0.5 MG/0.5 ML SYRINGE IVP PRN (12:52)
[2019-08-06] MEDS ORDERED: HYDROmorphone 1 MG/ML 1 ML SYRINGE IM PRN (14:25)
[2019-08-06] MEDS ORDERED: HYDROmorphone 1 MG/ML 1 ML SYRINGE IVP PRN (16:43)
--- NOTE | 2019-08-06 19:26 | P.PN ---
Subjective Progress Note Date: 08/06/19 Principal diagnosis: 69-year-old pleasant male came in with compensative 12/05 epigastric abdominal pain nonradiating along with nausea vomiting found to have highly elevated lipase. Patient denied any fever chills. Patient denied any dysuria. Patient denied any history of alcohol is him.his liver enzymes are within normal limits and the patient still has his gallbladder. 08/06/2019 Patient is seen and evaluated in follow up today and continues to have severe abdominal pain with eating and has not tolerated clear liquids. Patient will be restricted to ice chips only. Amylase has gone up to 481 and lipase has not decreased. Patient being evaluated by GI as well. Currently no reports of vomiting with intermittent nausea. Patient denies any chest pain, shortness of breath, or palpitations. Patient is afebrile. Will repeat am labs and continue to monitor. Pain management Objective - Vital Signs Vital signs: Vital Signs Temp 98.4 F 08/06/19 12:55 Pulse 82 08/06/19 12:55 Resp 17 08/06/19 12:55 BP 162/87 08/06/19 04:10 Pulse Ox 99 08/06/19 12:55 Intake & Output 08/05/19 08/06/19 08/06/19 18:59 06:59 18:59 Intake Total 200 500 Output Total 880 1025 Balance -680 -525 Weight 73.482 kg Intake: Intake, IV Titration 200 500 Amount Sodium Chloride 0.9% 1, 200 500 000 ml @ 200 mls/hr IV . Q5H [facility] Rx#:[id number] Output: Urine 880 1025 Other: Voiding Method Urinal Urinal Urinal # Voids 2 3 - Exam GENERAL: The patient is alert and oriented x3, not in any acute distress. Well developed, well nourished. HEENT: Pupils are round and equally reacting to light. EOMI. No scleral icterus. No conjunctival pallor. Normocephalic, atraumatic. No pharyngeal erythema. No thyromegaly. CARDIOVASCULAR: S1 and S2 present. No murmurs, rubs, or gallops. PULMONARY: Chest is clear to auscultation, no wheezing or crackles. ABDOMEN: moderate epigastric tenderness, nondistended, normoactive bowel sounds. No palpable organomegaly. MUSCULOSKELETAL: No joint swelling or deformity. EXTREMITIES: No cyanosis, clubbing, or pedal edema. NEUROLOGICAL: Gross neurological examination did not reveal any focal deficits. SKIN: No rashes. - Labs CBC & Chem 7: 08/06/19 06:37 08/06/19 06:37 Labs: Abnormal Lab Results - Last 24 Hours (Table) 08/06/19 08/06/19 Range/Units 06:37 06:37 BUN 7 L (9-20) mg/dL HDL Cholesterol 28 L (40-60) mg/dL Amylase 481 H* (30-110) U/L Lipase 3901 H (23-300) U/L Assessment and Plan Assessment: -acute pancreatitis will obtain ultrasound of the gallbladder. Ultrasound shows possible hepatic steatosis and right hyper echogenicity. -hypertension -hypoglycemia will obtain hemoglobin A1c -Anxiety disorder -DVT prophylaxis with Lovenox. GI prophylaxis with Protonix Plan: continue with pain management. ice chips only and IV hydration. Will repeat labs in the morning. further recommendations to follow. possible discharge in 24 hours if diet is tolerated. GI is following.
[2019-08-06] MEDS: traZODone HCL 50 MG TAB PO SCH (21:05)
[2019-08-06] MEDS: LATANOPROST 0.005% OPHTH DROPS 2.5 ML BTL BOTH EYES SCH (21:05)
--- NOTE | 2019-08-07 03:45 | PN ---
PROGRESS NOTE DATE OF DICTATION: 08/06/2019 Patient is a 69-year-old pleasant male admitted to hospital with acute recurrent pancreatitis this being the second episode. He still complains of epigastric pain. He was started on a clear liquid diet yesterday but not able to tolerate it. He is requesting for more pain medications. No nausea, vomiting. No fever, chills, night sweats. PHYSICAL EXAMINATION: On physical examination, appears comfortable, in no apparent distress. Vital signs are stable. Blood pressure is 162/87, pulse rate 69, temperature 98.4. HEENT EXAMINATION: Unremarkable. Conjunctivae pink. Sclerae anicteric. Oral cavity, no lesions. NECK: No JVD or lymph node enlargement. CHEST: Clear to auscultation. HEART: Regular rate and rhythm. ABDOMEN: Soft. Bowel sounds are positive. Very severe tenderness in the epigastric area. Rest of the abdomen benign. EXTREMITIES: No pedal edema. SKIN: No rashes. NEUROLOGIC: Alert and oriented x3. No focal deficits. LABS: Lipase 3901. 481. AST, ALT, T-bilirubin, alkaline phosphatase are within normal limits. CBC is within normal limits. IMPRESSION: Acute recurrent pancreatitis this being the second episode, elevated amylase and lipase, not tolerating clear liquids, needing more pain medications. Etiology of pancreatitis remains unclear. Previously ultrasound of the abdomen and CT scan did not show any evidence of gallstones. Serum IgG4 levels are normal. Fasting triglycerides during last admission was normal. RECOMMENDATIONS: 1. Continue with symptomatic and supportive care. 2. Keep him n.p.o. except ice chips. 3. Aggressive IV hydration. 4. Repeat labs in the morning. 5. We will follow with you closely. Thank you for this consultation. MMODL / IJN: [id number] /
[2019-08-07] MEDS: KETOROLAC 30 MG/ML 1 ML VIAL IVP PRN (05:41)
[2019-08-07 07:31] LABS: Basophils # (A) 0.1 k/uL (0-0.2); Basophils % (A) 1 %; Eosinophils # (A) 0.3 k/uL (0-0.7); Eosinophils % (A) 3 %; HCT 43.9 % (39.0-53.0); HGB 14.7 gm/dL (13.0-17.5); Lymphocytes # (A) 1.8 k/uL (1.0-4.8); Lymphocytes % (A) 18 %; MCH 33.4 pg (25.0-35.0); MCHC 33.4 g/dL (31.0-37.0); Mean Platelet Volume 6.7; Monocytes # (A) 0.4 k/uL (0-1.0); Monocytes % (A) 4 %; Neutrophils # (A) 7.4 k/uL (1.3-7.7); Neutrophils % (A) 74 %; Platelet Count 302 k/uL (150-450); RBC 4.39 m/uL (4.30-5.90); RDW 13.1 % (11.5-15.5); WBC 10.1 k/uL (3.8-10.6)
[2019-08-07 07:38] LABS: African American GFR (CKD) >90 (>60 ml/min/1.73 sqM); Amylase 195 U/L (30-110); Anion Gap 17 mmol/L; Blood Urea Nitrogen 9 mg/dL (9-20); Calcium 9.1 mg/dL (8.4-10.2); Carbon Dioxide 19 mmol/L (22-30); Chloride 103 mmol/L (98-107); Glucose 68 mg/dL (74-99); Non-African American GFR(CKD) >90 (>60 ml/min/1.73 sqM); Potassium 3.6 mmol/L (3.5-5.1); Sodium 139 mmol/L (137-145)
[2019-08-07] MEDS: ALPRAZolam 0.25 MG TAB PO SCH ×2 (09:06→20:49)
[2019-08-07] MEDS: SODIUM CHLORIDE 0.9% 1,000 ML IV SCH ×2 (09:07→12:39)
[2019-08-07] MEDS: BRIMONIDINE TARTRATE 0.2% DROPS 5 ML BTL BOTH EYES SCH ×2 (09:08→20:49)
[2019-08-07] MEDS: ENOXAPARIN 40 MG/0.4 ML SYRINGE SQ SCH (09:08)
--- NOTE | 2019-08-07 13:31 | P.PN ---
Subjective Progress Note Date: 08/07/19 Principal diagnosis: 69-year-old pleasant male came in with compensative 12/05 epigastric abdominal pain nonradiating along with nausea vomiting found to have highly elevated lipase. Patient denied any fever chills. Patient denied any dysuria. Patient denied any history of alcohol is him.his liver enzymes are within normal limits and the patient still has his gallbladder. 08/06/2019 Patient is seen and evaluated in follow up today and continues to have severe abdominal pain with eating and has not tolerated clear liquids. Patient will be restricted to ice chips only. Amylase has gone up to 481 and lipase has not decreased. Patient being evaluated by GI as well. Currently no reports of vomiting with intermittent nausea. Patient denies any chest pain, shortness of breath, or palpitations. Patient is afebrile. Will repeat am labs and continue to monitor. Pain management 08/07/2019 Patient is seen and evaluated in follow-up states his abdominal pain has improved although continues to be somewhat tender upon palpation. Patient has been nothing by mouth except ice chips and will advance diet to clear liquids and monitor closely for tolerance. Pain is better managed as well. Currently no reports of chest pain, shortness of breath, or palpitations. Patient is afebrile. No reports of nausea or vomiting and patient's diet will be advanced. Amylase improved and is currently 195, lipase also improved at 878. IV fluids titrated down and will continue until tolerating oral diet. Objective - Vital Signs Vital signs: Vital Signs Temp 97.8 F 08/07/19 11:54 Pulse 79 08/07/19 11:54 Resp 14 08/07/19 11:54 BP 131/78 08/07/19 11:54 Pulse Ox 99 08/07/19 11:54 Intake & Output 08/06/19 08/07/19 08/07/19 18:59 06:59 18:59 Intake Total 690 Output Total 375 Balance 315 Intake: Intake, IV Titration 400 Amount Sodium Chloride 0.9% 1, 400 000 ml @ 100 mls/hr IV . Q10H [facility] Rx#:[id number] Oral 290 Output: Urine 375 Other: Voiding Method Urinal Urinal # Voids 3 5 - Exam GENERAL: The patient is alert and oriented x3, not in any acute distress. Well developed, well nourished. HEENT: Pupils are round and equally reacting to light. EOMI. No scleral icterus. No conjunctival pallor. Normocephalic, atraumatic. No pharyngeal erythema. No thyromegaly. CARDIOVASCULAR: S1 and S2 present. No murmurs, rubs, or gallops. PULMONARY: Chest is clear to auscultation, no wheezing or crackles. ABDOMEN: Mild tenderness upon palpation although improved from yesterday, nondistended, normoactive bowel sounds. No palpable organomegaly. MUSCULOSKELETAL: No joint swelling or deformity. EXTREMITIES: No cyanosis, clubbing, or pedal edema. NEUROLOGICAL: Gross neurological examination did not reveal any focal deficits. SKIN: No rashes. - Labs CBC & Chem 7: 08/07/19 06:47 08/07/19 06:47 Labs: Abnormal Lab Results - Last 24 Hours (Table) 08/07/19 Range/Units 06:47 Carbon Dioxide 19 L (22-30) mmol/L Glucose 68 L (74-99) mg/dL Amylase 195 H (30-110) U/L Lipase 878 H (23-300) U/L Assessment and Plan Assessment: -acute pancreatitis, amylase and lipase improving. Advancing diet to clear liquids and will monitor for tolerance -hypertension -hypoglycemia will obtain hemoglobin A1c -Anxiety disorder -DVT prophylaxis with Lovenox. GI prophylaxis with Protonix Plan: continue with pain management. Diet being advanced to clear liquids and will advance as tolerated. Will repeat labs in the morning. further recommendations to follow. possible discharge in 24 hours if diet is tolerated. GI is following.
[2019-08-07] MEDS: traZODone HCL 50 MG TAB PO SCH (20:49)
[2019-08-07] MEDS: LATANOPROST 0.005% OPHTH DROPS 2.5 ML BTL BOTH EYES SCH (20:49)
--- NOTE | 2019-08-07 20:56 | PN ---
PROGRESS NOTE DATE OF DICTATION: 08/07/2019 This patient is a 69-year-old pleasant white male admitted to the hospital with acute recurrent pancreatitis. He is doing much better. Abdominal pain has improved. He is on a clear liquid diet, tolerating well. Last pain medications were this morning. No nausea, no vomiting. Overall he is feeling better. PHYSICAL EXAMINATION: Vital signs are stable. Blood pressure is 131/78, pulse rate 82, temperature 98.4. HEENT examination unremarkable. Conjunctivae pink. Sclerae anicteric. Oral cavity no lesions. NECK: No JVD or lymph node enlargement. CHEST: Clear to auscultation. HEART: Regular rate and rhythm. ABDOMEN: Soft. Bowel sounds are positive. No organomegaly. EXTREMITIES: No pedal edema. SKIN: No rashes. NEUROLOGIC: Alert and oriented x3. No focal deficits. LABS: WBC 10.1, hemoglobin 14.7, platelets normal. Basic metabolic panel is normal. Amylase 195, lipase 878. IMPRESSION: Acute recurrent pancreatitis with unclear etiology. Patient gradually improving. Amylase and lipase are significantly improved. RECOMMENDATIONS: 1. Advance to a full liquid diet today. 2. Repeat labs in the morning. 3. If his symptoms improve, he can be advanced to a low-fat diet and can be discharged home tomorrow morning with outpatient to follow up with Dr. Amaro in 2 weeks. Thank you for this consultation. MMODL / IJN: [id number] /
[2019-08-08] MEDS: HYDROcodone/APAP 5-325MG 1 EACH TAB PO PRN (05:08)
[2019-08-08 05:58] VITALS: BP 165/80; PULSE 68; RESP 14; TEMP 97.9
[2019-08-08] MEDS: SODIUM CHLORIDE 0.9% 1,000 ML IV SCH (06:32)
[2019-08-08] MEDS: ALPRAZolam 0.25 MG TAB PO SCH (08:18)
[2019-08-08] MEDS: BRIMONIDINE TARTRATE 0.2% DROPS 5 ML BTL BOTH EYES SCH (08:19)
[2019-08-08] MEDS: ENOXAPARIN 40 MG/0.4 ML SYRINGE SQ SCH (08:19)
--- NOTE | 2019-08-08 10:14 | P.DS ---
Providers Date of admission: 08/05/19 00:35 Expected date of discharge: 08/08/19 Attending physician: Elmer Hu Consults: 08/05/19 00:30 Consult Physician Routine Consulting Provider: Harrison Amaro Consult Reason/Comments: Pancreatitis Do you want consulting provider notified?: Yes Primary care physician: [facility] Hospital Course: Final diagnosis -acute pancreatitis -hypertension -hyperglycemia -Anxiety disorder -DVT prophylaxis -GI prophylaxis Discharge disposition Patient is being discharged in a stable condition with guarded prognosis to home and will follow up with [facility] upon discharge. Patient will also be following up with Dr. Amaro in the outpatient setting. Total time taken is 35 minutes. History of present illness This is a 69-year-old male who was recently admitted with epigastric abdominal pain along with nausea and vomiting and was being closely monitored. Patient was also found to have an elevated lipase and amylase and was seen and evaluated by GI. Patient was treated for pancreatitis with pain management and bowel rest. Patient attempted to eat clear liquids the first night and had excruciating abdominal discomfort and was titrated on the ice chips only. Patient states his abdominal discomfort improved the next morning and was slowly advanced to clear liquids. Patient's lipase and amylase levels were trending down. Patient was able to tolerate clear liquids and advance to full liquids and tolerated with no issues of abdominal discomfort, nausea, or vomiting. Patient will be following up with GI in the outpatient setting and states he would like to go home today. Currently no reports of chest pain, or shortness of breath, or palpitations. Patient is afebrile. No reports of nausea or vomiting and patient is tolerating diet. Patient instructed to continue with full liquid diet for the next few days and advance slowly as tolerated in the outpatient setting. Patient will follow-up with Dr. Amaro in the outpatient setting as discussed and scheduled. On exam vital signs are stable. Temp is 97.9F, pulse is 68, respirations are 14, blood pressure is 165/80, oxygen saturation is 99% on room air. Cardio S1, S2 are present. Respiratory system shows clear to auscultation. Abdomen is soft and nontender. Nervous system shows no focal deficits. Please refer to medication reconciliation sheet for a list of medications. Patient Condition at Discharge: Stable Plan - Discharge Summary New Discharge Prescriptions: New HYDROcodone/APAP 5-325MG [[place] 5-325] 1 each PO Q6HR PRN #12 tab PRN Reason: MODERATE Pain Continue ALPRAZolam [Xanax] 0.25 mg PO BID Multivitamins, Thera [Multivitamin (formulary)] 1 tab PO DAILY Latanoprost [Xalatan 0.005%] 1 drop BOTH EYES HS Calcium Carbonate/Vitamin D3 [Calcium 500-Vit D3 200 Tablet] 1 tab PO DAILY Brimonidine Tartrate [Alphagan P 0.2% Ophth Soln] 1 drops BOTH EYES BID Pantoprazole [Protonix] 40 mg PO AC-BID #60 tablet. traZODone HCL [Desyrel] 50 mg PO HS Discharge Medication List ALPRAZolam [Xanax] 0.25 mg PO BID 02/23/19 [History] Calcium Carbonate/Vitamin D3 [Calcium 500-Vit D3 200 Tablet] 1 tab PO DAILY 02/23/19 [History] Latanoprost [Xalatan 0.005%] 1 drop BOTH EYES HS 02/23/19 [History] Multivitamins, Thera [Multivitamin (formulary)] 1 tab PO DAILY 02/23/19 [History] Brimonidine Tartrate [Alphagan P 0.2% Ophth Soln] 1 drops BOTH EYES BID 02/27/19 [History] Pantoprazole [Protonix] 40 mg PO AC-BID #60 tablet. 02/28/19 [Rx] traZODone HCL [Desyrel] 50 mg PO HS 08/05/19 [History] HYDROcodone/APAP 5-325MG [[place] 5-325] 1 each PO Q6HR PRN #12 tab 08/08/19 [Rx] Follow up Appointment(s)/Referral(s): Harrison Amaro MD [STAFF PHYSICIAN] - 3 Weeks (Patient already has scheduled appointment) [facility],Clinic [Primary Care Provider] - 1-2 days Activity/Diet/Wound Care/Special Instructions: Activity Limited until follow-up Follow-up with GI as discussed and scheduled Follow Up with primary care provider Continue current for liquid diet and advance slowly as tolerated Discharge Disposition: HOME SELF-CARE
[2019-08-08] MEDS: KETOROLAC 30 MG/ML 1 ML VIAL IVP PRN (11:05)
--- NOTE | 2019-08-08 19:41 | PN ---
PROGRESS NOTE DATE OF DICTATION: 08/08/2019 This patient is a 69-year-old pleasant white male admitted to the hospital with acute recurrent pancreatitis, feeling much better. He wants to go home today. Abdominal pain has significantly improved. He is on a low-fat diet this morning, tolerating well. PHYSICAL EXAMINATION: Appears comfortable. No apparent distress. Vital signs are stable. Blood pressure 168/80, pulse rate 83, temperature 97.9. HEENT examination unremarkable. Conjunctivae pink. Sclerae anicteric. Oral cavity no lesions. NECK: No JVD or lymph node enlargement. CHEST: Clear to auscultation. HEART: Regular rate and rhythm. ABDOMEN: Soft. Bowel sounds are positive. No organomegaly. EXTREMITIES: No pedal edema. NEUROLOGIC: Alert and oriented x3. No focal deficits. LABS: Labs from today show CBC within normal limits. Lipase is down to 383. IMPRESSION: Acute recurrent pancreatitis, 2 episodes. Last one was in January of 2019. Workup so far has been negative. Serum IgG4 level is normal. Fasting triglyceride levels are normal. RECOMMENDATIONS: 1. Continue with low-fat diet. 2. Tylenol as needed for pain. 3. Follow up with Dr. Amaro on August 12. Patient may need endoscopic ultrasound of the pancreas on an outpatient basis. Thank you for this consultation. MMODL / IJN: [id number] /
== END 2019-08-08 12:38 | disposition home or self-care (01) | DRG 440 ==
LOC: EC 20:40 → 5NMEDONC 08-05 00:35
PROVIDERS: ADMIT Hospitalist; ATTEND Hospitalist
DX: K85.90 Acute pancreatitis without necrosis or infection, unspecified (principal); K86.1 Other chronic pancreatitis; I10 Essential (primary) hypertension; F41.9 Anxiety disorder, unspecified; E16.2 Hypoglycemia, unspecified; Z82.49 Family history of ischemic heart disease and other diseases of the circulatory system; Z83.3 Family history of diabetes mellitus; Z11.59 Encounter for screening for other viral diseases; M25.551 Pain in right hip; M54.2 Cervicalgia; M54.9 Dorsalgia, unspecified
CPT/HCPCS: 36415; 76705; 80048; 80053; 80061; 81001; 82150; 82787; 83605; 83690; 84484; 85025; 93005; 96361; 96374; 96375; 96376; 99285

== ENCOUNTER → 2019-10-13 | Outpatient (CLI) | payer MEDICARE, OTHER ==
--- NOTE | 2019-10-15 07:05 | MR ---
EXAMINATION TYPE: MR abdomen wo/w con DATE OF EXAM: 10/13/2019 COMPARISON: MRI abdomen April 16, 2019. CT abdomen and pelvis February 23, 2019. HISTORY: Acute Pancreatitis CONTRAST: Standard multiplanar, multisequence MRI departmental protocol utilizing 7 mL intravenous Gadavist robert olinium contrast. Imaging is performed of the abdomen focusing on the pancreas. FINDINGS: Pancreas: Pancreas remains overall normal in size without concerning new solid or cystic mass or surr ounding inflammatory change. Pancreatic duct is not dilated. Postcontrast images show no suspicious a reas of nonenhancement. No surrounding fat stranding or fluid is seen. No well-formed fluid collectio n noted. There is interval resolution of asymmetric thickness of the pancreatic tail with some adjace nt ill-defined fluid and fat stranding from prior CT and MRI Other: The lung bases are clear. The liver, gallbladder, spleen, both adrenal glands are normal in si ze. No biliary dilatation noted. There is 2.0 cm thin-walled cyst midpole of the left kidney. There a re additional subcentimeter thin-walled cysts redemonstrated scattered throughout both kidneys. No hy dronephrosis is noted bilaterally. There is persistent atherosclerotic change and ectasia to the infr arenal abdominal aorta with aneurysm measuring up to 3.2 cm transversely axial image 173 series 801 n oted. No suspicious bowel dilatation. No abdominal ascites. Visualized osseous structures are intact. IMPRESSION: Interval resolution of acute pancreatitis findings identified at the pancreatic tail on p rior CT and to lesser degree on prior MRI. Pancreas appears overall within normal limits on current s tudy.
== END | disposition home or self-care (01) ==
LOC: RADMRIMAIN 14:45
PROVIDERS: ATTEND Internal Medicine
DX: K85.90 Acute pancreatitis without necrosis or infection, unspecified (principal)
CPT/HCPCS: 74183; A9585

== ENCOUNTER → 2019-12-11 | Outpatient (CLI) | payer OTHER ==
--- NOTE | 2019-12-11 15:19 | MR ---
EXAMINATION TYPE: MR cervical spine wo con DATE OF EXAM: 12/11/2019 COMPARISON: 08/28/2016 HISTORY: 69-year-old male M50.30, chronic neck pain, no injury TECHNIQUE: Multiplanar, multisequence images of the cervical spine were acquired. FINDINGS: No craniocervical junction abnormality, predental space widening, or prevertebral soft tissue swellin g. Facet and uncovertebral joint arthropathy with ligamentum flavum thickening especially mid to lower c ervical spine. Similar trace grade 1 retrolisthesis at C5-C6. Remaining alignment is maintained. Mild heterogeneous marrow signal without suspicious bone marrow placement. Mild degenerative disc disease throughout with disc desiccation and disc osteophyte complex formation especially C5-C6 and C6-C7. At C2/C3, mild facet arthropathy without canal or foraminal stenosis. At C3-C4, facet arthropathy without significant canal or foraminal stenosis. At C4-C5, facet and uncovertebral joint arthropathy. No significant canal or foraminal stenosis. At C5-C6, facet and uncovertebral joint arthropathy with discussed by complex and ligamentum flavum t hickening as well as grade 1 retrolisthesis. There is moderate to severe bilateral neural foraminal s tenosis and a moderate spinal canal stenosis with prominent indentation of the ventral cord. At C6/C7, facet and uncovertebral joint arthropathy. Moderate to severe bilateral neural foraminal st enosis. Mild broad-based disc osteophyte complex mildly narrows the spinal canal abutting. At C7-T1, facet arthropathy without significant canal or foraminal stenosis. Normal course and signal intensity of the cervical spinal cord. IMPRESSION: 1. 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 Trace grade 1 retrolisthesis at C5-C6 is similar. 2. Overall spondylotic change otherwise shows slight progression from 2017 with a moderate spinal can al stenosis at C5-C6 and disc osteophyte complex focally indenting the ventral cord. No myelopathic c ord signal change. 3. Mild spinal canal stenosis at C6-C7. 4. Changes also result in moderate to severe bilateral neural foraminal stenoses at both C5-C6 and C6 -C7.
== END | disposition home or self-care (01) ==
LOC: RADMRIMAIN 14:01
PROVIDERS: ATTEND Physician Assistant Medical
DX: M48.02 Spinal stenosis, cervical region (principal); M47.812 Spondylosis without myelopathy or radiculopathy, cervical region; M25.78 Osteophyte, vertebrae; M46.06 Spinal enthesopathy, lumbar region
CPT/HCPCS: 72141

== ENCOUNTER 2020-06-15 14:40 | Inpatient (IN) | payer OTHER, MEDICARE ==
[2020-06-15] MEDS ORDERED: SODIUM CHLORIDE 0.9% 1,000 ML IV STA (15:08)
[2020-06-15] MEDS ORDERED: ONDANSETRON 4 MG/2 ML VIAL IVP STA (15:08)
--- NOTE | 2020-06-15 15:13 | ED ---
General Adult HPI - General Chief complaint: Abdominal Pain Stated complaint: abd pain Time Seen by Provider: 06/15/20 14:45 Source: patient, family, RN notes reviewed, old records reviewed Mode of arrival: wheelchair Limitations: no limitations - History of Present Illness Initial comments: This is a 70-year-old male who has a past medical history significant for pancreatitis 2. Patient states his symptoms today are similar to the symptoms have pain continues. Patient states that about 2:00 morning started having abdominal pain started vomiting. Patient states been vomiting since. Patient complains the pain in the left upper quadrant and epigastric region. Patient denies any lower abdominal pain. Patient's any fever chills or cough per p atient denies any chest pain difficult breathing shortest breath per patient denies any pain in the back. Patient denies any dysuria hematuria urinary frequency. Patient states she's not a drinker he's never had any gallbladder problems. - Related Data Home Medications Medication Instructions Recorded Confirmed Latanoprost [Xalatan 0.005%] 1 drop BOTH EYES HS 02/23/19 06/15/20 Multivitamins, Thera [Multivitamin 1 tab PO DAILY 02/23/19 06/15/20 (formulary)] traZODone HCL [Desyrel] 50 mg PO HS 08/05/19 06/15/20 ALPRAZolam [Xanax] 0.5 mg PO BID PRN 06/15/20 06/15/20 Ascorbic Acid [Vitamin C] 1,000 mg PO DAILY 06/15/20 06/15/20 Cholecalciferol [Vitamin D3 (25 25 mcg PO DAILY 06/15/20 06/15/20 Mcg = 1000 Iu)] Fluticasone Nasal [place] [Flonase 1 spray EA NOSTRIL BID PRN 06/15/20 06/15/20 Nasal [place]] Pantoprazole [Protonix] 40 mg PO AC-BID PRN 06/15/20 06/15/20 Timolol 0.5% Ophth Soln [Timoptic 1 drop BOTH EYES BID 06/15/20 06/15/20 0.5% Ophth Soln] polyethylene glycoL 3350 [Miralax] 17 gm PO DAILY PRN 06/15/20 06/15/20 Allergies Allergy/AdvReac Type Severity Reaction Status Date / Time morphine AdvReac Nausea & Verified 06/15/20 16:10 Vomiting Fipnbvi-Kgq-Jol Reductase AdvReac MUSCLE PAIN Verified 06/15/20 16:10 Inhibitor Review of Systems ROS Statement: Those systems with pertinent positive or pertinent negative responses have been documented in the HPI. ROS Other: All systems not noted in ROS Statement are negative. Past Medical History Past Medical History: Hyperlipidemia, Hypertension Additional Past Medical History / Comment(s): hypoglycemic, glaucoma, chronic pain in neck/back/right hip, pancreatitis History of Any Multi-Drug Resistant Organisms: None Reported Past Surgical History: Appendectomy, Hernia Repair Past Psychological History: Anxiety Past Alcohol Use History: None Reported Past Drug Use History: Marijuana - Past Family History Mother Family Medical History: Diabetes Mellitus, Hypertension Father Family Medical History: Cancer General Exam - General Exam Comments Initial Comments: GENERAL: Patient is well-developed and well-nourished. Patient is nontoxic and well- hydrated and is in mild distress. ENT: Neck is soft and supple. No significant lymphadenopathy is noted. Oropharynx is clear. Moist mucous membranes. Neck has full range of motion without eliciting any pain. EYES: The sclera were anicteric and conjunctiva were pink and moist. Extraocular movements were intact and pupils were equal round and reactive to light. Eyelids were unremarkable. PULMONARY: Unlabored respirations. Good breath sounds bilaterally. No audible rales rhonchi or wheezing was noted. CARDIOVASCULAR: There is a regular rate and rhythm without any murmurs gallops or rubs. ABDOMEN: Patient has tenderness in epigastric and left upper quadrant area SKIN: Skin is clear with no lesions or rashes and otherwise unremarkable. NEUROLOGIC: Patient is alert and oriented x3. Cranial nerves II through XII are grossly in tact. Motor and sensory are also intact. Normal speech, volume and content. Symmetrical smile. MUSCULOSKELETAL: Normal extremities with adequate strength and full range of motion. No lower extremity swelling or edema. No calf tenderness. LYMPHATICS: No significant lymphadenopathy is noted PSYCHIATRIC: Normal psychiatric evaluation. Limitations: no limitations Course Vital Signs 06/15/20 14:43 Temperature 98.0 F Pulse Rate 74 Respiratory 20 Rate Blood Pressure 179/89 O2 Sat by Pulse 99 Oximetry Medical Decision Making - Medical Decision Making I spoke with Dr. Hu he agreed patient needed to be admitted admitted the patient wrote orders I consult GI. - Lab Data Result diagrams: 06/15/20 15:10 06/15/20 15:10 Lab Results 06/15/20 06/15/20 06/15/20 Range/Units 15:10 15:10 15:10 WBC 11.2 H (3.8-10.6) k/uL RBC 4.91 (4.30-5.90) m/uL Hgb 15.4 (13.0-17.5) gm/dL Hct 47.2 (39.0-53.0) % MCV 96.1 (80.0-100.0) fL MCH 31.3 (25.0-35.0) pg MCHC 32.6 (31.0-37.0) g/dL RDW 13.6 (11.5-15.5) % Plt Count 274 (150-450) k/uL MPV 6.9 Neutrophils % 88 % Lymphocytes % 9 % Monocytes % 2 % Eosinophils % 0 % Basophils % 0 % Neutrophils # 9.8 H (1.3-7.7) k/uL Lymphocytes # 1.0 (1.0-4.8) k/uL Monocytes # 0.3 (0-1.0) k/uL Eosinophils # 0.0 (0-0.7) k/uL Basophils # 0.0 (0-0.2) k/uL Sodium 135 L (137-145) mmol/L Potassium 4.7 (3.5-5.1) mmol/L Chloride 101 (98-107) mmol/L Carbon Dioxide 22 (22-30) mmol/L Anion Gap 12 mmol/L BUN 11 (9-20) mg/dL Creatinine 0.79 (0.66-1.25) mg/dL Est GFR (CKD-EPI)AfAm >90 (>60 ml/min/1.73 sqM) Est GFR (CKD-EPI)NonAf >90 (>60 ml/min/1.73 sqM) Glucose 127 H (74-99) mg/dL Plasma Lactic Acid [place] 1.3 (0.7-2.0) mmol/L Calcium 9.6 (8.4-10.2) mg/dL Total Bilirubin 0.9 (0.2-1.3) mg/dL AST 32 (17-59) U/L ALT 16 (4-49) U/L Alkaline Phosphatase 66 (38-126) U/L Total Protein 8.2 (6.3-8.2) g/dL Albumin 4.8 (3.5-5.0) g/dL Amylase 603 H* (30-110) U/L Lipase 5386 H (23-300) U/L Disposition Clinical Impression: Acute pancreatitis Disposition: ADMITTED IP TO THIS HOSP Referrals: [facility],Clinic [Primary Care Provider] - 1-2 days Time of Disposition: 17:31
[2020-06-15] MEDS ORDERED: HYDROmorphone 0.5 MG/0.5 ML SYRINGE IVP STA (15:24)
[2020-06-15 15:25] LABS: Basophils % (A) 0 %; Eosinophils % (A) 0 %; HCT 47.2 % (39.0-53.0); HGB 15.4 gm/dL (13.0-17.5); Lymphocytes % (A) 9 %; MCH 31.3 pg (25.0-35.0); MCHC 32.6 g/dL (31.0-37.0); MCV 96.1 fL (80.0-100.0); Mean Platelet Volume 6.9; Monocytes # (A) 0.3 k/uL (0-1.0); Monocytes % (A) 2 %; Neutrophils # (A) 9.8 k/uL (1.3-7.7); Neutrophils % (A) 88 %; Platelet Count 274 k/uL (150-450); RBC 4.91 m/uL (4.30-5.90); RDW 13.6 % (11.5-15.5); WBC 11.2 k/uL (3.8-10.6)
[2020-06-15 15:51] LABS: ALT 16 U/L (4-49); AST 32 U/L (17-59); African American GFR (CKD) >90 (>60 ml/min/1.73 sqM); Albumin 4.8 g/dL (3.5-5.0); Alkaline Phosphatase 66 U/L (38-126); Anion Gap 12 mmol/L; Blood Urea Nitrogen 11 mg/dL (9-20); Calcium 9.6 mg/dL (8.4-10.2); Carbon Dioxide 22 mmol/L (22-30); Chloride 101 mmol/L (98-107); Glucose 127 mg/dL (74-99); Non-African American GFR(CKD) >90 (>60 ml/min/1.73 sqM); Sodium 135 mmol/L (137-145); Total Bilirubin 0.9 mg/dL (0.2-1.3); Total Protein 8.2 g/dL (6.3-8.2)
[2020-06-15 16:17] LABS: Lipase 5386 U/L (23-300)
[2020-06-15 16:20] LABS: Amylase 603 U/L (30-110)
[2020-06-15 16:26] LABS: Potassium 4.7 mmol/L (3.5-5.1)
[2020-06-15] MEDS ORDERED: SODIUM CHLORIDE 0.9% 1,000 ML IV ONE (17:32)
[2020-06-15] MEDS ORDERED: ONDANSETRON 4 MG/2 ML VIAL IVP PRN (17:39)
[2020-06-15 17:42] LABS: Appearance,Urine Clear (Clear); Bacteria,Urine Rare /hpf; Bilirubin,Urine Negative (Negative); Blood,Urine Trace (Negative); Color,Urine Colorless; Glucose,Urine (UA) Negative (Negative); Ketones,Urine Negative (Negative); Leukocyte Esterase,Urine Negative (Negative); Mucus,Urine Rare /hpf; Nitrite,Urine Negative (Negative); Protein,Urine Negative (Negative); RBC,Urine <1 /hpf (0-5); Specific Gravity,Urine 1.002 (1.001-1.035); Urobilinogen,Urine <2.0 mg/dL (<2.0); WBC,Urine <1 /hpf (0-5)
[2020-06-15] MEDS: HYDROmorphone 0.5 MG/0.5 ML SYRINGE IVP PRN ×2 (18:16→22:28)
[2020-06-16] MEDS: HYDROmorphone 0.5 MG/0.5 ML SYRINGE IVP PRN ×4 (02:35→18:30)
[2020-06-16] MEDS: LACTATED RINGERS 1,000 ML IV SCH ×2 (12:31→18:05)
[2020-06-16] MEDS ORDERED: FLUTICASONE 50MCG/SPRAY NASAL 16GM EA NOSTRIL PRN (12:42)
[2020-06-16] MEDS ORDERED: TEMAZEPAM 15 MG CAP PO PRN (12:43)
[2020-06-16] MEDS ORDERED: IOPAMIDOL CONTRAST (ORAL USE) VIAL PO PRN (12:47)
[2020-06-16] MEDS: PANTOPRAZOLE 40 MG/10 ML VIAL IVP SCH (13:13)
--- NOTE | 2020-06-16 13:31 | P.CONS ---
History of Present Illness - Reason for Consult Consult date: 06/16/20 Pancreatitis Requesting physician: Elmer Hu - Chief Complaint Abdominal pain - History of Present Illness 70-year-old male with medical history significant for hypertension and to prior episodes of uncomplicated pancreatitis who presented back to the hospital due to complaints of abdominal pain. Patient reports symptoms of severe epigastric and periumbilical abdominal pain occurring over the past few days. This was associated with nausea and vomiting. Patient felt that the symptoms were similar to his prior hospitalizations for pancreatitis presented for further evaluation. Previously the etiology of the patient's pancreatitis is unknown as patient has no significant history of alcohol use and has now been found to have gallstones. He reports that his been trying to watch what he eats and denies any new medications or exposures. After the patient's last episode of pancreatitis he underwent MRI evaluation of the pancreas on 10/13/19 with findings of enteral resolution of pancreatitis with no acute findings or abnormalities of the pancreas noted. On current presentation WBC 11.2, hemoglobin 15.4, platelet count 274,000 with an amylase of 603 and lipase of 5386. Review of Systems REVIEW OF SYSTEMS: CONSTITUTIONAL: Denies any fevers, chills, weight change or fatigue. CARDIOVASCULAR: Denies any chest pain, palpitations high or low blood pressures RESPIRATORY: Denies any shortness of breath, hemoptysis or cough. GENITOURINARY: No dysuria or hematuria. MUSCULOSKELETAL: No weakness reported. SKIN: Denies any new rashes or lesions, jaundice or pallor. PSYCHIATRIC: Denies any depression or anxiety. NEUROLOGY: Denies headache, denies any new focal deficits. EARS/NOSE/THROAT: No recent hearing change, congestion, nasal discharge or sore throat. EYES: No pain in eyes, discharge or change in vision. GASTROINTESTINAL: As per HPI. Past Medical History Past Medical History: Hyperlipidemia, Hypertension Additional Past Medical History / Comment(s): hypoglycemic, glaucoma, chronic pain in neck/back/right hip, pancreatitis History of Any Multi-Drug Resistant Organisms: None Reported Past Surgical History: Appendectomy, Hernia Repair Past Psychological History: Anxiety Past Alcohol Use History: None Reported Past Drug Use History: Marijuana - Past Family History Mother Family Medical History: Diabetes Mellitus, Hypertension Father Family Medical History: Cancer Medications and Allergies Home Medications Medication Instructions Recorded Confirmed Type Latanoprost [Xalatan 0.005%] 1 drop BOTH EYES HS 12/29/19 04/20/21 History Multivitamins, Thera [Multivitamin 1 tab PO DAILY 02/23/19 06/15/20 History (formulary)] traZODone HCL [Desyrel] 50 mg PO HS 08/05/19 06/15/20 History ALPRAZolam [Xanax] 0.5 mg PO BID PRN 06/15/20 06/15/20 History Ascorbic Acid [Vitamin C] 1,000 mg PO DAILY 06/15/20 06/15/20 History Cholecalciferol [Vitamin D3 (25 25 mcg PO DAILY 06/15/20 06/15/20 History Mcg = 1000 Iu)] Fluticasone Nasal [place] [Flonase 1 spray EA NOSTRIL BID PRN 06/15/20 06/15/20 History Nasal [place]] Pantoprazole [Protonix] 40 mg PO AC-BID PRN 06/15/20 06/15/20 History Timolol 0.5% Ophth Soln [Timoptic 1 drop BOTH EYES BID 06/15/20 06/15/20 History 0.5% Ophth Soln] polyethylene glycoL 3350 [Miralax] 17 gm PO DAILY PRN 06/15/20 06/15/20 History Allergies Allergy/AdvReac Type Severity Reaction Status Date / Time morphine AdvReac Nausea & Verified 06/15/20 16:10 Vomiting Ywgpzic-Jrb-Ocr Reductase AdvReac MUSCLE PAIN Verified 06/15/20 16:10 Inhibitor Physical Exam Vitals: Vital Signs Temp Pulse Pulse Resp BP BP Pulse Ox 06/16/20 07:36 98.3 F 69 16 101/58 95 06/16/20 06:26 72 16 172/90 98 06/15/20 22:28 77 16 149/89 98 06/15/20 18:11 76 16 153/91 97 06/15/20 14:43 98.0 F 74 20 179/89 99 On physical examination, patient appears comfortable in no apparent distress. HEAD: Normocephalic, atraumatic. EYES: No scleral icterus. No conjunctival injection. MOUTH: No lesions, tongue midline. NECK: Trachea midline, no gross abnormalities. CHEST: Clear to auscultation with no wheezing or rhonchi appreciated. HEART: S1-S2 appreciated. ABDOMEN: Soft, mildly tender to palpation. Bowel sounds are positive. No organomegaly. No guarding or rigidity. EXTREMITIES: No pedal edema. SKIN: No rashes, no jaundice. NEUROLOGIC: Alert and oriented x3. No focal deficits. Results CBC & Chem 7: 06/15/20 15:10 06/15/20 15:10 Labs: Abnormal Lab Results - Last 24 Hours (Table) 06/15/20 06/15/20 06/15/20 Range/Units 15:10 15:10 16:33 WBC 11.2 H (3.8-10.6) k/uL Neutrophils # 9.8 H (1.3-7.7) k/uL Sodium 135 L (137-145) mmol/L Glucose 127 H (74-99) mg/dL Amylase 603 H* (30-110) U/L Lipase 5386 H (23-300) U/L Urine Blood Trace H (Negative) Urine Bacteria Rare H (None) /hpf Urine Mucus Rare H (None) /hpf CT scan - abdomen: report reviewed (Computed tomography scan of the abdomen ordered and pending) Assessment and Plan (1) Acute pancreatitis Narrative/Plan: 70-year-old male presenting for abdominal pain found to have elevation in his amylase and lipase consistent with acute uncomplicated pancreatitis. 2 prior episodes of pancreatitis with imaging as follow-up in 10/23 with MRI significant for interval resolution of pancreatitis. No abnormal findings of pancreas. Patient denies any alcohol use, gallbladder dysfunction, exposures or new medications. Currently computed tomography scan of the abdomen and pelvis is pending. Current Visit: Yes Status: Acute Code(s): K85.90 - ACUTE PANCREATITIS WITHOUT NECROSIS OR INFECTION, UNSP SNOMED Code(s): 998089501 (2) Abdominal pain Current Visit: No Status: Acute Code(s): R10.9 - UNSPECIFIED ABDOMINAL PAIN SNOMED Code(s): 91220487 Plan: Supportive care Nothing by mouth except for ice chips Continue to monitor CBC, BMP, LFTs Computed tomography scan of the abdomen pending Previously IgG4 within normal limits Continue IV fluid hydration Continue pain control Encourage ambulation as tolerated Thank you for allowing us to participate in the care of the patient
--- NOTE | 2020-06-16 14:09 | HP ---
HISTORY AND PHYSICAL DATE OF SERVICE: 06/16/2020 CHIEF COMPLAINT: Abdominal pain. HISTORY OF PRESENT ILLNESS: This 70-year-old gentleman with a past medical history of multiple medical problems including hypertension, hyperlipidemia, hypoglycemia, glaucoma, chronic pain, being followed by Dr. Kelly in the outpatient setting was complaining of abdominal pain. The patient had previous pancreatitis x2. Patient also had a couple of MRIs which did not show any acute abnormality according to the patient. The patient has pain mostly in the upper right quadrant of the abdomen. nausea or any vomiting. The patient came to [facility] and was admitted to the hospital for further evaluation and treatment. There is no history of fever, rigors. No history of headache, loss of consciousness, or seizures at this time. PAST MEDICAL HISTORY: History of hypertension, hyperlipidemia, hypoglycemia, glaucoma, chronic pain, history of previous pancreatitis x2. MEDICATIONS: Home medications are: 1. Vitamin C. 2. Xanax. 3. Multivitamins. 4. Vitamin D3. 5. Desyrel. 6. Timoptic. 7. Protonix. 8. MiraLAX. 9. Xalatan. 10.Flonase nasal spray. ALLERGIES: MORPHINE and STATINS. FAMILY HISTORY: History of diabetes and hypertension in the family. SOCIAL HISTORY: History of alcohol, THC. No history of smoking. REVIEW OF SYSTEMS: ENT: No diminished hearing or diminished vision. CARDIOVASCULAR SYSTEM: No angina, palpitations. RESPIRATORY SYSTEM: No cough. GI: As mentioned earlier : No dysuria. NERVOUS SYSTEM: No numbness, weakness. ALLERGY/IMMUNOLOGY: No asthma or hayfever. MUSCULOSKELETAL: As mentioned earlier. HEMATOLOGY/ONCOLOGY: No history of anemia. ENDOCRINE: No history of diabetes or hypothyroidism. Otherwise hypoglycemia. CONSTITUTIONAL: As mentioned earlier. DERMATOLOGY: Negative. RHEUMATOLOGY: Negative. PSYCHIATRY: As mentioned earlier. PHYSICAL EXAMINATION: Alert and oriented x3. Pulse 69, blood pressure 101/58, respirations 16, temperature 98.3, pulse ox 95% on room air. HEENT: Conjunctivae normal. NECK: No jugular venous distention. CARDIOVASCULAR: S1, S2 muffled. RESPIRATORY: Breath sounds diminished at the bases. No rhonchi, no crackles. ABDOMEN: Soft, mild diffuse tenderness in the upper part of the abdomen. No guarding. No rigidity. No mass palpable. No ascites. Bowel sounds present. LEGS: No edema, no swelling. NERVOUS SYSTEM: Higher function as mentioned earlier. Moves all 4 limbs. No focal motor or sensory deficits. LYMPHATICS: No lymphadenopathy of the neck, axillae or groin. SKIN: No ulcer, rash or bleeding. JOINTS: No active deforming arthropathy. LABS: WBC 11.2, neutrophils 9.8. Sodium 135. Glucose 127. Amylase 603 and lipase is 5386. COVID-19 is negative. ASSESSMENT: 1. Acute severe pancreatitis with abdominal pain, present on admission. 2. History of acute recurrent pancreatitis. 3. Increased WBC. 4. Hyponatremia. 5. Elevated amylase and lipase. 6. History of hypertension. 7. Hyperlipidemia. 8. History of hypoglycemia. 9. History of glaucoma. 10.History of chronic pain syndrome. 11.History of appendectomy. 12.History of anxiety. 13.History of THC. RECOMMENDATIONS AND DISCUSSION: This 70-year-old gentleman who presented with multiple complex medical issues, we will monitor the patient closely. Continue the current medications, continue symptomatic treatment. Otherwise at this time I would recommend repeat CT scan of the abdomen. The last abdominal MRI was last year 2019 which showed resolution of the pancreatitis. Will obtain Gastroenterology evaluation. Repeat lipid panel. Guarded prognosis. Further recommendations to follow. COVID-19 has been negative previously. The IgG subtypes are also within normal limits during the previous evaluation last year. Further recommendations to follow. MMODL / IJN: [id number] / MTDD
--- NOTE | 2020-06-16 14:18 | XR ---
EXAMINATION TYPE: XR chest 1V portable DATE OF EXAM: 06/16/2020 COMPARISON: Chest x-ray 02/26/2019 HISTORY: Pancreatitis, abdomen pain and hypertension, abnormal chest x-ray TECHNIQUE: Single frontal view of the chest is obtained. FINDINGS: There is no focal air space opacity, pleural effusion, or pneumothorax seen, probable basi lar scarring again noted at the left lung base. The aorta is dense. The cardiac silhouette size is w ithin normal limits. The osseous structures are intact. IMPRESSION: No acute process.
--- NOTE | 2020-06-16 15:32 | CT ---
EXAMINATION TYPE: CT abdomen pelvis wo con DATE OF EXAM: 06/16/2020 HISTORY: Nausea, acute pancreatitis CT DLP: 483.6 mGycm. Automated Exposure Control for Dose Reduction was Utilized. TECHNIQUE: CT scan of the abdomen and pelvis is performed with oral but without IV contrast. COMPARISON: CT abdomen and pelvis February 23, 2019 FINDINGS: Within the limitations of a non-contrast study, the following observations are made. LUNG BASES: Mild bibasilar linear scarring and/or atelectasis. LIVER/GB: Geographic heterogeneous hypodensity of the somewhat small liver favors fatty infiltration. PANCREAS: Redemonstration of mild to moderate ill-defined fluid fat stranding in the distal body and tail of the pancreas for reference axial image 21. No well-formed fluid collection or abscess seen. N o pancreatic ductal dilatation or glandular calcifications noted. SPLEEN: No significant abnormality is seen. ADRENALS: No significant abnormality is seen. KIDNEYS: There is 1.9 cm thin-walled cyst laterally mid pole level left kidney axial image 31 redemon strated. BOWEL: Oral contrast reaches level of the transverse colon making evaluation of distal bowel slightly suboptimal. No suspicious small or large bowel dilatation. Diverticula seen in the redundant sigmoid colon. GENITAL ORGANS: Prostate gland upper limits of normal size bulging on bladder base. LYMPH NODES: No greater than 1cm abdominal or pelvic lymph nodes are appreciated. OSSEOUS STRUCTURES: Moderate severe disc space narrowing with vacuum disc phenomenon L5-S1 level. Mod erate disc space narrowing with vacuum disc phenomenon L4-L5 level. OTHER: Slight aneurysm to the infrarenal abdominal aorta up to 3.2 cm transversely axial image 37. Th ere is additional focal stable 2.2 right common iliac artery aneurysm maximum 51 IMPRESSION: Suboptimal study without IV contrast. Recurrent mild to moderate acute pancreatitis invol ving the distal pancreas is identified. No well-formed fluid collection seen.
[2020-06-16] MEDS: ACETAMINOPHEN TAB 500 MG TAB PO PRN (20:13)
[2020-06-16] MEDS: LATANOPROST 0.005% OPHTH DROPS 2.5 ML BTL BOTH EYES SCH (20:44)
[2020-06-16] MEDS: HEPARIN SODIUM,PORCINE/PF 5,000 UNIT/0.5 ML SYRINGE SQ SCH (20:45)
[2020-06-16] MEDS: TIMOLOL 0.5% OPHTH DROPS 5 ML BTL BOTH EYES SCH (20:45)
[2020-06-16] MEDS: traZODone HCL 50 MG TAB PO SCH (20:46)
[2020-06-17] MEDS: ACETAMINOPHEN TAB 500 MG TAB PO PRN ×2 (03:25→10:33)
[2020-06-17] MEDS: LACTATED RINGERS 1,000 ML IV SCH ×4 (03:26→19:18)
[2020-06-17] MEDS: ALPRAZolam 0.5 MG TAB PO PRN ×2 (03:36→16:52)
[2020-06-17 06:22] LABS: HCT 40.3 % (39.0-53.0); HGB 13.2 gm/dL (13.0-17.5); MCH 31.1 pg (25.0-35.0); MCHC 32.6 g/dL (31.0-37.0); MCV 95.3 fL (80.0-100.0); Mean Platelet Volume 6.7; Platelet Count 241 k/uL (150-450); RBC 4.23 m/uL (4.30-5.90); RDW 13.5 % (11.5-15.5); WBC 10.1 k/uL (3.8-10.6)
[2020-06-17] MEDS: HEPARIN SODIUM,PORCINE/PF 5,000 UNIT/0.5 ML SYRINGE SQ SCH ×2 (09:36→21:46)
[2020-06-17] MEDS: PANTOPRAZOLE 40 MG/10 ML VIAL IVP SCH (10:18)
[2020-06-17] MEDS: TIMOLOL 0.5% OPHTH DROPS 5 ML BTL BOTH EYES SCH ×3 (10:29→22:38)
[2020-06-17] MEDS: CHOLECALCIFEROL 25 MCG (1000 IU) TABLET PO SCH (10:33)
[2020-06-17 11:27] LABS: African American GFR (CKD) 103.4 (60.0-200.0); Anion Gap 11.5 mmol/L (4.00-12.00); BUN/Creat Ratio 11.25 Ratio (12.00-20.00); Calcium 8.9 mg/dL (8.7-10.3); Carbon Dioxide 24.5 mmol/L (21.6-31.8); Chol/HDL Ratio 5.7; LDL Cholesterol,Calculated 119.6 mg/dL (0.0-131.0); Non-African American GFR(CKD) 89.2 (60.0-200.0); Potassium 3.8 mmol/L (3.5-5.5); VLDL Calculation 21.4 mg/dL (5.00-40.00)
--- NOTE | 2020-06-17 13:29 | P.PN ---
Subjective Progress Note Date: 06/17/20 Principal diagnosis: Pancreatitis Patient is seen and examined lying in bed. He states early this morning he felt really well and pain had subsided significantly. However now he states the pain returned, however denies any nausea or vomiting. IV fluids were turned down impending possible discharge home today as he was doing so well this morning. Repeat pancreatic enzymes improving. He underwent a CT of the abdomen and pelvis yesterday which showed recurrent mild to moderate acute pancreatitis involving the distal pancreas. No well-formed fluid collection seen. Objective - Vital Signs Vital signs: Vital Signs Temp 98.4 F 06/17/20 08:11 Pulse 87 06/17/20 08:12 Resp 16 06/17/20 08:12 BP 153/81 06/17/20 08:11 Pulse Ox 99 06/17/20 08:11 Intake & Output 06/16/20 06/17/20 06/17/20 18:59 06:59 18:59 Intake Total 1350 0 Balance 1350 0 Weight 68.039 kg Intake: Intake, IV Titration 1350 Amount Lactated Ringers 1,000 ml 900 @ 150 mls/hr IV .[id number] [facility] Rx#:[id number] Sodium Chloride 0.9% 1, 450 000 ml @ 75 mls/hr IV . [id number] Rx#:[id number] Oral 0 Other: # Voids 4 2 # Bowel Movements 0 # Emeses 0 - Exam General appearance: The patient is alert, oriented, appears in no acute distress. HET: Head is normocephalic and atraumatic. Conjunctiva pink. Sclera anicteric. Neck: Supple without lymphadenopathy. Abdomen: Soft, epigastric and left upper quadrant tenderness, nondistended with bowel sounds. No guarding or rigidity. Extremities: Normal skin color and turgor. No pedal edema Skin: No rashes, no jaundice Neurological: No focal deficits. Alert and oriented 3. - Labs CBC & Chem 7: 06/17/20 05:36 06/17/20 05:36 Labs: Abnormal Lab Results - Last 24 Hours (Table) 06/17/20 06/17/20 Range/Units 05:36 05:36 RBC 4.23 L (4.30-5.90) m/uL BUN/Creatinine Ratio 11.25 L (12.00-20.00) Ratio HDL Cholesterol 30.0 L (40.0-60.0) mg/dL Amylase 205 H (23-121) U/L Lipase 291 H (14-60) U/L Assessment and Plan (1) Acute pancreatitis Narrative/Plan: This is 70-year-old male presenting for abdominal pain found to have elevation in his amylase and lipase consistent with acute uncomplicated pancreatitis. 2 prior episodes of pancreatitis with imaging as follow-up in 10/23 with MRI significant for interval resolution of pancreatitis. No abnormal findings of pancreas. Patient denies any alcohol use, gallbladder dysfunction, exposures or new medications. CT of the abdomen and pelvis shows recurrent mild to moderate acute pancreatitis involving the distal pancreas. No well-formed fluid collection seen. Current Visit: Yes Status: Acute Code(s): K85.90 - ACUTE PANCREATITIS WITHOUT NECROSIS OR INFECTION, UNSP SNOMED Code(s): 749090440 (2) Abdominal pain Current Visit: No Status: Acute Code(s): R10.9 - UNSPECIFIED ABDOMINAL PAIN SNOMED Code(s): 31930928 Plan: Supportive care Increased to clear liquid diet, in moderation Continue to monitor CBC, BMP, LFTs Computed tomography scan of abdomen and pelvis reviewed Previously IgG4 within normal limits Continue IV fluid hydration Continue pain control Encourage ambulation as tolerated Thank you for allowing us to participate in the care of the patient Dr. Amaro I agree with the dictator's note, documented as a scribe by Carla Murray.
--- NOTE | 2020-06-17 17:38 | PN ---
PROGRESS NOTE DATE OF SERVICE: 06/17/2020 This 70-year-old gentleman who was admitted after acute severe pancreatitis is still complaining of abdominal pain. No chest pain. No palpitations. No fever. PHYSICAL EXAMINATION: Alert and oriented x3. Pulse 73. Blood pressure 150/80, respiratory rate 16. Temperature 98.3. HEENT: Conjunctivae normal. NECK: No JVD. CARDIOVASCULAR: S1, S2 muffled. RESPIRATORY: Breath sounds diminished in the bases. No rhonchi. No crackles. ABDOMEN: Soft, nontender. LEGS are no edema. No swelling. NERVOUS SYSTEM: No focal deficits. LABS: Amylase is 205, lipase is 291. ASSESSMENT: 1. Acute severe pancreatitis with abdominal pain, present on admission. 2. Elevated amylase and lipase. 3. History of recurrent pancreatitis. 4. Increased WBC. 5. Hyponatremia. 6. History of hypertension. 7. Hyperlipidemia. 8. Hypoglycemia. 9. History of glaucoma. 10.Chronic pain syndrome. 11.Appendectomy. 12.History of anxiety. 13.History of THC. RECOMMENDATIONS AND DISCUSSION: Recommend to continue current medications, symptomatic treatment. Otherwise at this time I would recommend continue the current medication, continue symptomatic treatment. Guarded prognosis. Further recommendations to follow. MMODL / IJN: [id number] /
[2020-06-17] MEDS: HYDROmorphone 0.5 MG/0.5 ML SYRINGE IVP PRN (20:02)
[2020-06-17] MEDS: LATANOPROST 0.005% OPHTH DROPS 2.5 ML BTL BOTH EYES SCH (21:44)
[2020-06-17] MEDS: traZODone HCL 50 MG TAB PO SCH (21:45)
[2020-06-18] MEDS: HYDROmorphone 0.5 MG/0.5 ML SYRINGE IVP PRN ×2 (00:51→13:36)
[2020-06-18] MEDS: LACTATED RINGERS 1,000 ML IV SCH ×2 (05:08→13:38)
[2020-06-18] MEDS: CHOLECALCIFEROL 25 MCG (1000 IU) TABLET PO SCH (08:29)
[2020-06-18] MEDS: PANTOPRAZOLE 40 MG/10 ML VIAL IVP SCH (08:30)
[2020-06-18] MEDS: HEPARIN SODIUM,PORCINE/PF 5,000 UNIT/0.5 ML SYRINGE SQ SCH ×2 (08:30→21:04)
[2020-06-18] MEDS: TIMOLOL 0.5% OPHTH DROPS 5 ML BTL BOTH EYES SCH ×2 (08:31→21:09)
[2020-06-18 09:33] LABS: Amylase 141 U/L (30-110); Lipase 1020 U/L (23-300)
[2020-06-18] MEDS: HYDROcodone/APAP 5-325MG 1 EACH TAB PO PRN ×2 (12:27→19:03)
--- NOTE | 2020-06-18 15:01 | P.PN ---
Subjective Progress Note Date: 06/18/20 Principal diagnosis: Pancreatitis She was seen and examined this morning states his pain has significantly improved. Then he was seen again this afternoon which he states his abdominal pain returned after he had eaten lunch. He denies any nausea or vomiting, fever, or chills. Plan is for patient to stay until tomorrow, elevation of amylase and lipase. Objective - Vital Signs Vital signs: Vital Signs Temp 98.8 F 06/18/20 13:04 Pulse 65 06/18/20 13:04 Resp 18 06/18/20 13:04 BP 187/103 06/18/20 13:04 Pulse Ox 99 06/18/20 13:04 Intake & Output 06/17/20 06/18/20 06/18/20 18:59 06:59 18:59 Intake Total 1440 Balance 1440 Intake: Intake, IV Titration 1200 Amount Lactated Ringers 1,000 ml 1200 @ 100 mls/hr IV .Q10H [facility] Rx#:[id number] Oral 240 Other: Voiding Method Toilet # Voids 4 - Labs CBC & Chem 7: 06/17/20 05:36 06/17/20 05:36 Labs: Abnormal Lab Results - Last 24 Hours (Table) 06/18/20 Range/Units 08:59 Amylase 141 H (30-110) U/L Lipase 1020 H (23-300) U/L Assessment and Plan (1) Acute pancreatitis Narrative/Plan: This is 70-year-old male presenting for abdominal pain found to have elevation in his amylase and lipase consistent with acute uncomplicated pancreatitis. 2 prior episodes of pancreatitis with imaging as follow-up in 10/23 with MRI significant for interval resolution of pancreatitis. No abnormal findings of pancreas. Patient denies any alcohol use, gallbladder dysfunction, exposures or new medications. CT of the abdomen and pelvis shows recurrent mild to moderate acute pancreatitis involving the distal pancreas. No well-formed fluid collection seen. Current Visit: Yes Status: Acute Code(s): K85.90 - ACUTE PANCREATITIS WITHOUT NECROSIS OR INFECTION, UNSP SNOMED Code(s): 619977414 (2) Abdominal pain Current Visit: No Status: Acute Code(s): R10.9 - UNSPECIFIED ABDOMINAL PAIN SNOMED Code(s): 07191403 Plan: Supportive care Increased to low fat diet Computed tomography scan of abdomen and pelvis reviewed Previously IgG4 within normal limits Continue IV fluid hydration Continue pain control Encourage ambulation as tolerated Thank you for allowing us to participate in the care of the patient, he may discharged home once medically cleared Dr. Amaro I agree with the dictator's note, documented as a scribe by Carla PATEL .
[2020-06-18] MEDS: ALPRAZolam 0.5 MG TAB PO PRN (16:39)
[2020-06-18] MEDS ORDERED: hydrALAZINE HCL 20 MG/ML 1 ML VIAL IVP PRN (18:44)
--- NOTE | 2020-06-18 20:51 | PN ---
PROGRESS NOTE DATE OF SERVICE: 06/18/2020 This 70-year-old gentleman admitted with significant pancreatitis had a significant lesion in the tail of the pancreas. The patient has a history of recurrent pancreatitis. Patient is complaining of significant abdominal pain. Dr. Amaro is following the patient closely. The diet is being advanced at this time. No chest pain. No palpitations. No fever. PHYSICAL EXAMINATION: Alert and oriented x3. Pulse is 65, blood pressure 197/103, respiration 18, temperature 98.8, pulse ox 99% on room air. HEENT: Conjunctivae normal. NECK: No jugular venous distention. CARDIOVASCULAR SYSTEM: S1, S2 muffled. RESPIRATORY SYSTEM: Breath sounds diminished at the bases. No rhonchi. No crackles. ABDOMEN: Soft. Mild diffuse discomfort in the left upper quadrant. No guarding. No rigidity. NERVOUS SYSTEM: No focal deficit. LABS: WBC 10.2, hemoglobin 13.2. Amylase is 141 and lipase 1020. ASSESSMENT: 1. Acute severe pancreatitis with abdominal pain, present on admission. 2. Hypertension. 3. Increased amylase and lipase. 4. History of recurrent pancreatitis. 5. Increased white count. 6. Hyponatremia. 7. History of hypertension. 8. Hyperlipidemia. 9. Hypoglycemia. 10.History of glaucoma. 11.Chronic pain syndrome. 12.Appendectomy. 13.History of anxiety. 14.History of tetrahydrocannabinol. RECOMMENDATIONS AND DISCUSSION: I recommend to continue current medications, continue with the monitoring, symptomatic treatment. Repeat labs. Guarded prognosis because of multiple complex medical issues. Advance diet. Further recommendations to follow. Add Norvasc to the current regimen. Reduce the rate of IV fluids. MMODL / IJN: [id number] /
[2020-06-18] MEDS: amLODIPine 10 MG TAB PO SCH (21:08)
[2020-06-18] MEDS: traZODone HCL 50 MG TAB PO SCH (21:08)
[2020-06-18] MEDS: LATANOPROST 0.005% OPHTH DROPS 2.5 ML BTL BOTH EYES SCH (21:08)
[2020-06-19] MEDS: LACTATED RINGERS 1,000 ML IV SCH ×2 (04:21→04:33)
[2020-06-19] MEDS: HYDROcodone/APAP 5-325MG 1 EACH TAB PO PRN ×2 (04:29→11:12)
[2020-06-19 07:10] LABS: Basophils # (A) 0.1 k/uL (0-0.2); Basophils % (A) 1 %; Eosinophils # (A) 0.7 k/uL (0-0.7); Eosinophils % (A) 9 %; HCT 42.4 % (39.0-53.0); HGB 14.5 gm/dL (13.0-17.5); Lymphocytes # (A) 2.4 k/uL (1.0-4.8); Lymphocytes % (A) 30 %; MCH 32.6 pg (25.0-35.0); MCHC 34.2 g/dL (31.0-37.0); MCV 95.2 fL (80.0-100.0); Monocytes # (A) 0.4 k/uL (0-1.0); Monocytes % (A) 5 %; Neutrophils # (A) 4.2 k/uL (1.3-7.7); Neutrophils % (A) 54 %; Platelet Count 267 k/uL (150-450); RBC 4.45 m/uL (4.30-5.90); WBC 7.9 k/uL (3.8-10.6)
[2020-06-19 07:36] LABS: ALT 18 U/L (4-49); AST 41 U/L (17-59); African American GFR (CKD) >90 (>60 ml/min/1.73 sqM); Albumin 4.8 g/dL (3.5-5.0); Albumin/Globulin Ratio 1.4; Alkaline Phosphatase 60 U/L (38-126); Amylase 129 U/L (30-110); Anion Gap 10 mmol/L; Blood Urea Nitrogen 9 mg/dL (9-20); Calcium 9.7 mg/dL (8.4-10.2); Carbon Dioxide 25 mmol/L (22-30); Chloride 105 mmol/L (98-107); Globulin 3.4 g/dL; Glucose 113 mg/dL (74-99); Lipase 1000 U/L (23-300); Non-African American GFR(CKD) 88 (>60 ml/min/1.73 sqM); Potassium 3.9 mmol/L (3.5-5.1); Sodium 140 mmol/L (137-145); Total Bilirubin 0.8 mg/dL (0.2-1.3); Total Protein 8.2 g/dL (6.3-8.2)
[2020-06-19] MEDS: PANTOPRAZOLE 40 MG/10 ML VIAL IVP SCH (07:59)
[2020-06-19] MEDS: amLODIPine 10 MG TAB PO SCH (07:59)
[2020-06-19] MEDS: HEPARIN SODIUM,PORCINE/PF 5,000 UNIT/0.5 ML SYRINGE SQ SCH (07:59)
[2020-06-19] MEDS: CHOLECALCIFEROL 25 MCG (1000 IU) TABLET PO SCH (08:00)
[2020-06-19] MEDS: TIMOLOL 0.5% OPHTH DROPS 5 ML BTL BOTH EYES SCH (08:01)
--- NOTE | 2020-06-19 12:09 | P.PN ---
Subjective Progress Note Date: 06/19/20 Principal diagnosis: Acute uncomplicated pancreatitis The patient is seen sitting bedside reporting abdominal pain is improved. No nausea or vomiting. No change in bowel habits. Objective - Vital Signs Vital signs: Vital Signs Temp 97.5 F L 06/19/20 04:23 Pulse 61 06/19/20 09:15 Resp 18 06/19/20 04:23 BP 133/80 06/19/20 09:15 Pulse Ox 98 06/19/20 04:23 Intake & Output 06/18/20 06/19/20 06/19/20 18:59 06:59 18:59 Intake Total 1200 600 Balance 1200 600 Intake: Intake, IV Titration 1200 600 Amount Lactated Ringers 1,000 ml 1200 600 @ 50 mls/hr IV .Q20H [facility] Rx#:[id number] Other: Voiding Method Toilet - Exam On physical examination, patient appears comfortable in no apparent distress. HEAD: Normocephalic, atraumatic. EYES: No scleral icterus. No conjunctival injection. MOUTH: No lesions, tongue midline. NECK: Trachea midline, no gross abnormalities. ABDOMEN: Soft, soft and less tender to palpation. Bowel sounds are positive. No organomegaly. No guarding or rigidity. EXTREMITIES: No pedal edema. SKIN: No rashes, no jaundice. NEUROLOGIC: Alert and oriented x3. No focal deficits. - Labs CBC & Chem 7: 06/19/20 06:26 06/19/20 06:26 Labs: Abnormal Lab Results - Last 24 Hours (Table) 06/19/20 Range/Units 06:26 Glucose 113 H (74-99) mg/dL Amylase 129 H (30-110) U/L Lipase 1000 H (23-300) U/L Assessment and Plan (1) Acute pancreatitis Narrative/Plan: 70-year-old male presenting for abdominal pain found to have elevation in his amylase and lipase consistent with acute uncomplicated pancreatitis. 2 prior episodes of pancreatitis with imaging as follow-up in 10/23 with MRI significant for interval resolution of pancreatitis. No abnormal findings of pancreas. Patient denies any alcohol use, gallbladder dysfunction, exposures or new medications. Clinically the patient has improved and is set to be discharged today. Current Visit: Yes Status: Acute Code(s): K85.90 - ACUTE PANCREATITIS WITHOUT NECROSIS OR INFECTION, UNSP SNOMED Code(s): 682161946 (2) Abdominal pain Current Visit: No Status: Acute Code(s): R10.9 - UNSPECIFIED ABDOMINAL PAIN SNOMED Code(s): 57281776 Plan: Supportive care Okay for diet as tolerated Continue to monitor CBC, BMP, LFTs Previously IgG4 within normal limits Continue IV fluid hydration Continue pain control Encourage ambulation as tolerated Thank you for allowing us to participate in the care of the patient
[2020-06-19 12:35] VITALS: BP 155/84; PULSE 64; RESP 14; TEMP 97.7
--- NOTE | 2020-06-20 00:48 | DS ---
DISCHARGE SUMMARY DATE OF SERVICE: 06/19/2020 FINAL DIAGNOSES: 1. Acute severe pancreatitis with abdominal pain, present on admission. 2. Hypertension. 3. Increased amylase, lipase. 4. History of recurrent pancreatitis. 5. Increased WBC. 6. Hyponatremia. 7. History of hypertension. 8. Hyperlipidemia. 9. Hypoglycemia. 10.History of glaucoma. 11.Chronic pain syndrome. 12.Appendectomy. 13.History of anxiety. 14.History of THC. DISCHARGE DISPOSITION: The patient discharged in stable condition with guarded prognosis. HISTORY: This 70-year-old gentleman with a past medical history of multiple medical problems as mentioned earlier, being followed by Dr. Kelly in the [facility] in the outpatient setting, admitted with features of acute severe pancreatitis. This is probably the third episode of pancreatitis. Treated symptomatically. Gastroenterology saw the patient. Patient improved significantly. Amylase and lipase stabilized. Amylase is 129, lipase is 1000 and glucose 113. The patient is symptomatically better. Recommended followup with Gastroenterology as well as the [facility] for secondary pain. The patient had previous MRIs. On exam, vitals signs stable. Cardiovascular: S1, S2. Abdomen soft and nontender. Nervous System: No focal deficits. DISCHARGE ADVICE AND MEDICATIONS: 1. Diet is cardiac low-fat. 2. Activity limited until follow up. 3. Follow up with Dr. Kelly in 2-3 days with CBC, CMP, amylase, lipase. 4. Follow with Gastroenterology as recommended. 5. Desyrel 50 mg q.h.s. 6. Fluticasone spray. 7. MiraLAX as before. 8. Multivitamins one p.o. daily. 9. Protonix 40 mg b.i.d. 10.Timolol eye drops. 11.Vitamin C 1000 mg daily. 12.Vitamin D3 25 mg daily. 13.Latanoprost 1 drop both eyes. 14.Xanax 0.5 b.i.d. 15.Norvasc 10 mg p.o. daily. 16.Tylenol p.r.n. Once again the patient discharged in stable condition with guarded prognosis. MMODL / IJN: [id number] /
== END 2020-06-19 13:35 | disposition home or self-care (01) | DRG 439 ==
LOC: EC 14:40 → 5NMEDONC 17:32
PROVIDERS: ADMIT Hospitalist; ATTEND Hospitalist
DX: K85.90 Acute pancreatitis without necrosis or infection, unspecified (principal); E87.1 Hypo-osmolality and hyponatremia; K86.1 Other chronic pancreatitis; G89.4 Chronic pain syndrome; E78.5 Hyperlipidemia, unspecified; Z83.3 Family history of diabetes mellitus; I10 Essential (primary) hypertension; E16.2 Hypoglycemia, unspecified; H40.9 Unspecified glaucoma; Z82.49 Family history of ischemic heart disease and other diseases of the circulatory system; Z90.49 Acquired absence of other specified parts of digestive tract; Z20.822 Contact with and (suspected) exposure to COVID-19
CPT/HCPCS: 36415; 71045; 74176; 80048; 80053; 80061; 81001; 82150; 83605; 83690; 85025; 85027; 87635; 96361; 96374; 96375; 99284

== ENCOUNTER 2022-12-31 07:00 | Emergency (ER) | payer OTHER ==
[2022-12-31] MEDS ORDERED: ONDANSETRON 4 MG/2 ML VIAL IVP STA (07:31)
[2022-12-31] MEDS ORDERED: HYDROmorphone 0.5 MG/0.5 ML SYRINGE IVP STA (07:31)
[2022-12-31] MEDS ORDERED: KETOROLAC 15 MG/ML 1 ML VIAL IVP STA (07:31)
[2022-12-31] MEDS ORDERED: SODIUM CHLORIDE 0.9% 500 ML 500 ML IV STA (07:31)
[2022-12-31 07:46] VITALS: TEMP 98.4
--- NOTE | 2022-12-31 07:53 | ED ---
Abdominal Pain HPI - General Chief Complaint: Abdominal Pain Stated Complaint: Abd Pain Time Seen by Provider: 12/31/22 07:16 Source: patient, RN notes reviewed Mode of arrival: ambulatory Limitations: no limitations - History of Present Illness Initial Comments: 72-year-old male presents emergency Department with chief complaint of abdominal pain. Patient states is on the right lower quadrant region. Patient had prior hernia repair he states that the pain is radiating into his right hip. 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 Patient states that he has no associate nausea vomiting diarrhea and states that he may have had a fever. Patient denies any trauma no falls pain does radiate also to his buttocks region. Denies back pain on the usual. - Related Data Home Medications Medication Instructions Recorded Confirmed Latanoprost [Xalatan 0.005%] 1 drop BOTH EYES HS 02/23/19 06/15/20 Multivitamins, Thera [Multivitamin 1 tab PO DAILY 02/23/19 06/15/20 (formulary)] traZODone HCL [Desyrel] 50 mg PO HS 08/05/19 06/15/20 ALPRAZolam [Xanax] 0.5 mg PO BID PRN 06/15/20 06/15/20 Ascorbic Acid [Vitamin C] 1,000 mg PO DAILY 06/15/20 06/15/20 Cholecalciferol [Vitamin D3 (25 25 mcg PO DAILY 06/15/20 06/15/20 Mcg = 1000 Iu)] Fluticasone Nasal [place] [Flonase 1 spray EA NOSTRIL BID PRN 06/15/20 06/15/20 Nasal [place]] Pantoprazole [Protonix] 40 mg PO AC-BID PRN 06/15/20 06/15/20 Timolol 0.5% Ophth Soln [Timoptic 1 drop BOTH EYES BID 06/15/20 06/15/20 0.5% Ophth Soln] polyethylene glycoL 3350 [Miralax] 17 gm PO DAILY PRN 06/15/20 06/15/20 Previous Rx's Medication Instructions Recorded Acetaminophen Tab [Tylenol] 500 mg PO Q6HR PRN tab 06/19/20 amLODIPine [Norvasc] 10 mg PO DAILY #30 tab 06/19/20 Allergies Allergy/AdvReac Type Severity Reaction Status Date / Time morphine AdvReac Nausea & Verified 12/31/22 07:25 Vomiting Violfbb-EJY-GqT Reductase AdvReac MUSCLE PAIN Verified 12/31/22 07:25 Inhibitor [Spyxuqv-Ghe-Wnn Reductase Inhibitor] Review of Systems ROS Statement: Those systems with pertinent positive or pertinent negative responses have been documented in the HPI. ROS Other: All systems not noted in ROS Statement are negative. Past Medical History Past Medical History: Hyperlipidemia, Hypertension Additional Past Medical History / Comment(s): hypoglycemic, glaucoma, chronic pain in neck/back/right hip, pancreatitis avascular necrosis in right hip, per pt. History of Any Multi-Drug Resistant Organisms: None Reported Past Surgical History: Appendectomy, Hernia Repair Additional Past Surgical History / Comment(s): ruptured appendix,Eye Past Anesthesia/Blood Transfusion Reactions: No Reported Reaction Past Psychological History: Anxiety Smoking Status: Former smoker Past Alcohol Use History: None Reported Past Drug Use History: Marijuana - Past Family History Mother Family Medical History: Diabetes Mellitus, Hypertension Father Family Medical History: Cancer Additional Family Medical History / Comment(s): throat cancer General Exam Limitations: no limitations General appearance: alert, in no apparent distress Head exam: Present: atraumatic, normocephalic, normal inspection Eye exam: Present: normal appearance, PERRL, EOMI. Absent: scleral icterus, conjunctival injection, periorbital swelling Respiratory exam: Present: normal lung sounds bilaterally. Absent: respiratory distress, wheezes, rales, rhonchi, stridor Cardiovascular Exam: Present: regular rate, normal rhythm, normal heart sounds. Absent: systolic murmur, diastolic murmur, rubs, gallop, clicks GI/Abdominal exam: Present: soft, tenderness (Right lower quadrant), normal bowel sounds. Absent: distended, guarding, rebound, rigid Back exam: Absent: CVA tenderness (R), CVA tenderness (L) Neurological exam: Present: alert, oriented X3 Skin exam: Present: warm, dry, intact, normal color. Absent: rash Course Vital Signs 12/31/22 12/31/22 07:23 10:00 Temperature 98.4 F Pulse Rate 92 82 Respiratory 22 18 Rate Blood Pressure 164/95 159/88 O2 Sat by Pulse 99 100 Oximetry Medical Decision Making - Medical Decision Making Was pt. sent in by a medical professional or institution (, PA, KITCHEN BATH DESIGNER, urgent care, hospital, or [place] health care facility...) When possible be specific @ -No Did you speak to anyone other than the patient for history (EMS, parent, family, police, friend...)? What history was obtained from this source @ -No Did you review nursing and triage notes (agree or disagree)? Why? @ -I reviewed and agree with nursing and triage notes Were old charts reviewed (outside hosp., previous admission, EMS record, old EKG, old radiological studies, urgent care reports/EKG's, [place] health care facility records)? Report findings @ -No old charts were reviewed Differential Diagnosis (chest pain, altered mental status, abdominal pain women, abdominal pain men, vaginal bleeding, weakness, fever, dyspnea, syncope, headache, dizziness, GI bleed, back pain, seizure, CVA, palpatations, mental health, musculoskeletal)? @ -nDifferential Abdominal Pain Men: Appendicitis, cholecystitis, diverticulosis, ischemic bowel, pancreatitis, hepatitis, UTI, gastroenteritis, AAA, incarcerated hernia, bowel obstruction, constipation, inflammatory bowel, hepatitis, peptic ulcer disease, splenic infarction, perforated viscus, testicular torsion, this is not meant to be an all-inclusive list EKG interpreted by me (3pts min.). @ -None X-rays interpreted by me (1pt min.). @ -None done CT interpreted by me (1pt min.). @ -[CT abdomen and pelvis showing evidence of avascular necrosis, possible lucency of the right hip, stable left inguinal hernia U/S interpreted by me (1pt. min.). @ -None done What testing was considered but not performed or refused? (CT, X-rays, U/S, labs)? Why? @ -None What meds were considered but not given or refused? Why? @ -None Did you discuss the management of the patient with other professionals (professionals i.e. , ALICE, KITCHEN BATH DESIGNER, lab, RT, psych nurse, health care social worker, abalone fisherman, t eacher, medical officer psychiatry, casework supervisor)? Give summary @ -No Was smoking cessation discussed for >3mins.? @ -No Was critical care preformed (if so, how long)? @ -No Were there social determinants of health that impacted care today? How? (Homelessness, low income, unemployed, alcoholism, drug addiction, transportation, low edu. Level, literacy, decrease access to med. care, long-term, rehab)? @ -No Was there de-escalation of care discussed even if they declined (Discuss DNR or withdrawal of care, Hospice)? DNR status @ -No What co-morbidities impacted this encounter? (DM, HTN, Smoking, COPD, CAD, Cancer, CVA, ARF, Chemo, Hep., AIDS, mental health diagnosis, sleep apnea, morbid obesity)? @ -Avascular necrosis Was patient admitted / discharged? Hospital course, mention meds given and route, prescriptions, significant lab abnormalities, going to OR and other pertinent info. @ -Discharge patient CT did show evidence of aneurysm the patient was updated about. Patient does have lucency of the right hip but has known about this condition of his avascular necrosis I did inform that he needs a follow-up with orthopedics the more likely the pain is caused from his right hip and he may require right hip replacement. Patient there is a plan for follow-up return parameters were discussed patient has been ambulating he was provided a walker to minimize weightbearing on right hip. Undiagnosed new problem with uncertain prognosis? @ -No Drug Therapy requiring intensive monitoring for toxicity (Heparin, Nitro, Insulin, Cardizem)? @ -No Were any procedures done? @ -No Diagnosis/symptom? @ -Right hip pain, abdominal pain Acute, or Chronic, or Acute on Chronic? @ -Acute Uncomplicated (without systemic symptoms) or Complicated (systemic symptoms)? @ -Uncomplicated Side effects of treatment? @ -No Exacerbation, Progression, or Severe Exacerbation? @ -No Poses a threat to life or bodily function? How? (Chest pain, [place], [place], pneumonia, PE, COPD, DKA, ARF, appy, cholecystitis, CVA, Diverticulitis, Homicidal, Suicidal, threat to staff... and all critical care pts) @ -No - Lab Data Result diagrams: 12/31/22 07:55 12/31/22 07:55 Lab Results 12/31/22 12/31/22 12/31/22 Range/Units 07:55 07:55 07:55 WBC 7.6 (3.8-10.6) k/uL RBC 4.64 (4.30-5.90) m/uL Hgb 14.9 (13.0-17.5) gm/dL Hct 44.8 (39.0-53.0) % MCV 96.6 (80.0-100.0) fL MCH 32.1 (25.0-35.0) pg MCHC 33.2 (31.0-37.0) g/dL RDW 13.2 (11.5-15.5) % Plt Count 293 (150-450) k/uL MPV 7.1 Neutrophils % 64 % Lymphocytes % 25 % Monocytes % 4 % Eosinophils % 4 % Basophils % 1 % Neutrophils # 4.9 (1.3-7.7) k/uL Lymphocytes # 1.9 (1.0-4.8) k/uL Monocytes # 0.3 (0-1.0) k/uL Eosinophils # 0.3 (0-0.7) k/uL Basophils # 0.1 (0-0.2) k/uL Sodium 141 (137-145) mmol/L Potassium 4.3 (3.5-5.1) mmol/L Chloride 106 (98-107) mmol/L Carbon Dioxide 19 L (22-30) mmol/L Anion Gap 16 mmol/L BUN 13 (9-20) mg/dL Creatinine 0.89 (0.66-1.25) mg/dL Est GFR (CKD-EPI)AfAm >90 (>60 ml/min/1.73 sqM) Est GFR (CKD-EPI)NonAf 85 (>60 ml/min/1.73 sqM) Glucose 101 H (74-99) mg/dL Plasma Lactic Acid [place] (0.7-2.0) mmol/L Calcium 9.6 (8.4-10.2) mg/dL Total Bilirubin 0.6 (0.2-1.3) mg/dL AST 27 (17-59) U/L ALT 23 (4-49) U/L Alkaline Phosphatase 72 (38-126) U/L Total Protein 8.2 (6.3-8.2) g/dL Albumin 4.8 (3.5-5.0) g/dL Lipase 452 H (23-300) U/L Urine Color Colorless Urine Appearance Clear (Clear) Urine pH 5.5 (5.0-8.0) Ur Specific [place] 1.009 (1.001-1.035) Urine Protein Negative (Negative) Urine Glucose (UA) Negative (Negative) Urine Ketones Negative (Negative) Urine Blood Negative (Negative) Urine Nitrite Negative (Negative) Urine Bilirubin Negative (Negative) Urine Urobilinogen <2.0 (<2.0) mg/dL Ur Leukocyte Esterase Negative (Negative) 12/31/22 Range/Units 07:55 WBC (3.8-10.6) k/uL RBC (4.30-5.90) m/uL Hgb (13.0-17.5) gm/dL Hct (39.0-53.0) % MCV (80.0-100.0) fL MCH (25.0-35.0) pg MCHC (31.0-37.0) g/dL RDW (11.5-15.5) % Plt Count (150-450) k/uL MPV Neutrophils % % Lymphocytes % % Monocytes % % Eosinophils % % Basophils % % Neutrophils # (1.3-7.7) k/uL Lymphocytes # (1.0-4.8) k/uL Monocytes # (0-1.0) k/uL Eosinophils # (0-0.7) k/uL Basophils # (0-0.2) k/uL Sodium (137-145) mmol/L Potassium (3.5-5.1) mmol/L Chloride (98-107) mmol/L Carbon Dioxide (22-30) mmol/L Anion Gap mmol/L BUN (9-20) mg/dL Creatinine (0.66-1.25) mg/dL Est GFR (CKD-EPI)AfAm (>60 ml/min/1.73 sqM) Est GFR (CKD-EPI)NonAf (>60 ml/min/1.73 sqM) Glucose (74-99) mg/dL Plasma Lactic Acid [place] 1.2 (0.7-2.0) mmol/L Calcium (8.4-10.2) mg/dL Total Bilirubin (0.2-1.3) mg/dL AST (17-59) U/L ALT (4-49) U/L Alkaline Phosphatase (38-126) U/L Total Protein (6.3-8.2) g/dL Albumin (3.5-5.0) g/dL Lipase (23-300) U/L Urine Color Urine Appearance (Clear) Urine pH (5.0-8.0) Ur Specific [place] (1.001-1.035) Urine Protein (Negative) Urine Glucose (UA) (Negative) Urine Ketones (Negative) Urine Blood (Negative) Urine Nitrite (Negative) Urine Bilirubin (Negative) Urine Urobilinogen (<2.0) mg/dL Ur Leukocyte Esterase (Negative) Disposition Clinical Impression: Right hip pain, Avascular necrosis Disposition: HOME SELF-CARE Condition: Stable Instructions (If sedation given, give patient instructions): Hip Pain (ED) Additional Instructions: Please return to the Emergency Department if symptoms worsen or any other concerns. Is patient prescribed a controlled substance at d/c from ED?: No Referrals: [facility],Clinic [Primary Care Provider] - 1-2 days Eunice Harris DO [Doctor of Osteopathic Medicine] - 1-2 days Tripp Saxena MD [STAFF PHYSICIAN] - 1-2 days Time of Disposition: 11:06
[2022-12-31 08:55] LABS: Basophils # (A) 0.1 k/uL (0-0.2); Basophils % (A) 1 %; Eosinophils # (A) 0.3 k/uL (0-0.7); Eosinophils % (A) 4 %; HCT 44.8 % (39.0-53.0); HGB 14.9 gm/dL (13.0-17.5); Lymphocytes # (A) 1.9 k/uL (1.0-4.8); Lymphocytes % (A) 25 %; MCH 32.1 pg (25.0-35.0); MCHC 33.2 g/dL (31.0-37.0); MCV 96.6 fL (80.0-100.0); Mean Platelet Volume 7.1; Monocytes # (A) 0.3 k/uL (0-1.0); Monocytes % (A) 4 %; Neutrophils # (A) 4.9 k/uL (1.3-7.7); Neutrophils % (A) 64 %; Platelet Count 293 k/uL (150-450); RBC 4.64 m/uL (4.30-5.90); RDW 13.2 % (11.5-15.5); WBC 7.6 k/uL (3.8-10.6)
[2022-12-31 09:15] LABS: ALT 23 U/L (4-49); AST 27 U/L (17-59); African American GFR (CKD) >90 (>60 ml/min/1.73 sqM); Albumin 4.8 g/dL (3.5-5.0); Alkaline Phosphatase 72 U/L (38-126); Anion Gap 16 mmol/L; Blood Urea Nitrogen 13 mg/dL (9-20); Calcium 9.6 mg/dL (8.4-10.2); Carbon Dioxide 19 mmol/L (22-30); Chloride 106 mmol/L (98-107); Glucose 101 mg/dL (74-99); Lipase 452 U/L (23-300); Non-African American GFR(CKD) 85 (>60 ml/min/1.73 sqM); Potassium 4.3 mmol/L (3.5-5.1); Sodium 141 mmol/L (137-145); Total Bilirubin 0.6 mg/dL (0.2-1.3); Total Protein 8.2 g/dL (6.3-8.2)
[2022-12-31 09:55] LABS: Appearance,Urine Clear (Clear); Bilirubin,Urine Negative (Negative); Blood,Urine Negative (Negative); Color,Urine Colorless; Glucose,Urine (UA) Negative (Negative); Ketones,Urine Negative (Negative); Leukocyte Esterase,Urine Negative (Negative); Nitrite,Urine Negative (Negative); PH, Urine 5.5 (5.0-8.0); Protein,Urine Negative (Negative); Specific Gravity,Urine 1.009 (1.001-1.035); Urobilinogen,Urine <2.0 mg/dL (<2.0)
[2022-12-31 10:20] VITALS: BP 159/88; PULSE 82; RESP 18
--- NOTE | 2022-12-31 10:48 | CT ---
EXAMINATION TYPE: CT abdomen pelvis w con CT DLP: 796.5 mGycm, Automated exposure control for dose reduction was used. DATE OF EXAM: 12/31/2022 9:46 AM COMPARISON: CT abdomen pelvis most recent from 06/16/2020 CLINICAL INDICATION:Male, 72 years old with history of rlq pain, groin pain; RLQ and groin pain TECHNIQUE: Axial CT of the ;CT abdomen pelvis w con;Sagittal and coronal reformats were created on a separate workstation. Contrast used:100 ml mL of Isovue 300 with IV Contrast, (none if empty) Oral contrast used: without Oral Contrast (none if empty) FINDINGS: LOWER CHEST: Streaky atelectasis in the lung bases. ABDOMEN LIVER: Unremarkable GALLBLADDER AND BILE DUCTS: Unremarkable. PANCREAS: Unremarkable. SPLEEN: Unremarkable. ADRENAL GLANDS: Unremarkable. KIDNEYS AND URETERS: No evidence of hydronephrosis or renal calculus. The ureters are unremarkable. Simple appearing left renal cyst. PELVIS BLADDER: Unremarkable REPRODUCTIVE: Prostate is enlarged in size measuring 4.5 cm in transverse dimension. ABDOMEN & PELVIS STOMACH AND BOWEL: No evidence of bowel obstruction. Scattered colonic diverticula present. PERITONEUM/RETROPERITONEUM: No evidence of pneumoperitoneum or free fluid. VASCULATURE: Infrarenal abdominal fusiform abdominal aortic aneurysm measuring up to 4.1 x 3.5 cm. Ri ght common iliac fusiform dilation up to 2.2 x 2.2 cm. MUSCULOSKELETAL: No acute osseous abnormalitie s there is curvilinear sclerosis with central lucency within the right femoral head without definitiv e subchondral collapse on this exam. There is multilevel degeneration changes of the spine. LYMPH NODES: No gross evidence for lymphadenopathy. SOFT TISSUE/ABDOMINAL WALL: Fat-containing umbilical hernia. Fat-containing left inguinal hernia. IMPRESSION: 1. No evidence for acute right lower quadrant process to explain the patient's pain. No obstructive uropathy. The appendix is not visualized. There is no secondary signs of appendicitis. 2. Curvilinear sclerosis with lucency centrally within the right femoral head suspicious for avascul ar necrosis. Correlate with patient's right lower quadrant pain for possible source of pain. 3. Infrarenal abdominal aortic fusiform aneurysm up to 4.1 cm. 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 4. Clonic diverticulosis. 5. Fat-containing left inguinal hernia. 6. Prostatomegaly, correlate with serum PSA.
[2022-12-31] MEDS ORDERED: ACET/COD 300 MG/30 MG STARTER PACK 6 TAB BTL PO STA (11:05)
[2022-12-31] MEDS ORDERED: HYDROcodone/APAP 5-325MG 1 EACH TAB PO STA (11:05)
== END 2022-12-31 11:29 | disposition home or self-care (01) ==
LOC: EC 07:00
DX: K40.90 Unilateral inguinal hernia, without obstruction or gangrene, not specified as recurrent (principal); M25.551 Pain in right hip; M87.9 Osteonecrosis, unspecified; N40.0 Benign prostatic hyperplasia without lower urinary tract symptoms; I10 Essential (primary) hypertension; F41.9 Anxiety disorder, unspecified; F12.90 Cannabis use, unspecified, uncomplicated; Z87.891 Personal history of nicotine dependence; Z79.899 Other long term (current) drug therapy; Z88.5 Allergy status to narcotic agent; Z88.8 Allergy status to other drugs, medicaments and biological substances
CPT/HCPCS: 99284 ×2; 96374 ×2; 96375 ×3; 36415; 80053; 83605; 83690; 85025; 81003; 74177; J2405; J1885; J1170; Q9967

== ENCOUNTER → 2023-02-14 | Outpatient (CLI) | payer OTHER | END | disposition home or self-care (01) | LOC: LABPAT 10:29 | PROVIDERS: ATTEND Orthopaedic Surgery | DX: Z01.812 Encounter for preprocedural laboratory examination (principal); M16.11 Unilateral primary osteoarthritis, right hip; Z22.322 Carrier or suspected carrier of Methicillin resistant Staphylococcus aureus | CPT/HCPCS: 36415; 86850; 86900; 86901; 87070 ==

== ENCOUNTER 2023-02-21 08:59 | Observation (INO) | payer OTHER ==
--- NOTE | 2023-02-20 23:43 | HP ---
HISTORY AND PHYSICAL His surgery is scheduled for 02/21/2023. HISTORY OF PRESENT ILLNESS: Alexis Barber is a 73-year-old gentleman, seen with symptomatic right hip osteoarthritis. After having treatment options discussed, he elected to proceed with right total hip arthroplasty. Consent was obtained. Medical clearance was provided by Alise Zhang NP. PAST MEDICAL HISTORY: Noncontributory. PAST SURGICAL HISTORY: Appendectomy, herniorrhaphy. DAILY MEDICATIONS: 1. Alprazolam. 2. Acetaminophen/codeine. 3. Trazodone. ALLERGIES: None. SOCIAL HISTORY: Denies tobacco use. PHYSICAL EVALUATION OF THE RIGHT HIP: He has diffuse tenderness about the hip girdle. Limited range of motion with severe pain. Positive hip impingement sign. Straight-leg raise is negative. His distal neurovascular exam is intact. IMAGING STUDIES: Radiographs of the right hip revealed osteoarthritic changes and evidence for avascular necrosis. CT scan of right hip revealed avascular necrosis and osteoarthritic changes. IMPRESSION: Right hip osteoarthritis/avascular necrosis. PLAN: Direct anterior right total hip arthroplasty. MMODL / IJN: [id number] /
[~2023-02-21 08:59] MED LIST: ACETAMINOPHEN TAB 500 MG TAB PO PRN; DEXAMETHASONE SOD PHOSPHATE 4 MG/ML 1 ML VIAL IV ONE; LIDOCAINE 1% (10MG/ML) FOR IV START INTRADERMA PRN; MELOXICAM 7.5 MG TAB PO PRN; ONDANSETRON 4 MG/2 ML VIAL IVP ONE; TRANEXAMIC 1,000 MG/100ML-NACL 1,000 MG in SALINE 1 100ML.BAG IVPB PRN; droPERidol 5 MG/2 ML VIAL IVP ONE; fentaNYL (PF) 50 MCG/ML 2 ML AMP IV PRN
[2023-02-21] MEDS: LACTATED RINGERS 1,000 ML IV SCH (09:51)
[2023-02-21] MEDS ORDERED: ONDANSETRON 4 MG/2 ML VIAL IVP ONE (10:08)
[2023-02-21] MEDS ORDERED: DEXAMETHASONE SOD PHOSPHATE 4 MG/ML 1 ML VIAL IVP ONE (10:08)
[2023-02-21] MEDS ORDERED: MIDAZOLAM 2 MG/2 ML VIAL IVP ONE ×2 (10:27)
[2023-02-21] MEDS ORDERED: fentaNYL (PF) 50 MCG/1 ML VIAL IVP ONE ×2 (10:29)
--- NOTE | 2023-02-21 10:43 | P.ANPRN ---
Procedure Note - Anesthesia - Nerve Block Performed Right [place]ide Single Time Out Performed: Yes Date of Procedure: 02/21/23 Procedure Start Time: 10:24 Procedure Stop Time: 10:32 Location of Patient: PreOp Indication: Acute Post-Operative Pain, Analgesia, Requested by Surgeon Sedation Type: Sedate with meaningful contact maintained Preparation: Sterile Prep Position: Supine Catheter: None Needle Types: Pajunk Needle Gauge: 21 Ultrasound used to visualize needle placement: Yes Ultrasound used to observe medication spread: Yes Injectate: 0.5% Ropivacaine (see comment for volume) (Ropiv 10ml+NS 10ml) Blood Aspirated: No Pain Paresthesia on Injection Noted: No Image Stored and Saved: Yes Events: Uneventful and Well Tolerated
[2023-02-21] MEDS ORDERED: ROPIVACAINE 5 MG/ML 30 ML VIAL ONE (11:09)
[2023-02-21] MEDS ORDERED: SODIUM CHLORIDE 0.9% (PF) 10 ML VIAL ONE (11:09)
[2023-02-21] MEDS ORDERED: MIDAZOLAM 2 MG/2 ML VIAL ONE (11:09)
[2023-02-21] MEDS ORDERED: TRANEXAMIC 1,000 MG/100ML-NACL PREMIX BAG ONE (11:09)
[2023-02-21] MEDS ORDERED: WATER FOR INJECTION, STERILE 10 ML VIAL IV ONE (11:09)
[2023-02-21] MEDS ORDERED: ePHEDrine 50 MG/ML 1 ML VIAL ONE (11:09)
[2023-02-21] MEDS ORDERED: PHENYLEPHRINE-0.9% NACL SYG 1,000 MCG/10 ML SYRINGE ONE (11:09)
[2023-02-21] MEDS ORDERED: fentaNYL (PF) 50 MCG/ML 2 ML AMP ONE (11:09)
[2023-02-21] MEDS ORDERED: PROPOFOL 10 MG/ML 20 ML VIAL IV ONE (11:09)
[2023-02-21] MEDS ORDERED: ceFAZolin 1,000 MG in SODIUM CHLORIDE 0.9% 1,000 ML IRRIGATION ONE (11:50)
[2023-02-21] MEDS ORDERED: HYDROcodone/APAP 5-325MG 1 EACH TAB PO PRN (12:49)
[2023-02-21] MEDS ORDERED: HYDROmorphone 0.5 MG/0.5 ML SYRINGE IVP PRN ×2 (12:49)
[2023-02-21] MEDS ORDERED: NALOXONE 0.4 MG/ML 1 ML VIAL IV PRN (12:49)
--- NOTE | 2023-02-21 12:49 | P.OP ---
Date of Procedure: 02/21/23 Preoperative Diagnosis: Right hip osteoarthritis/avascular necrosis Postoperative Diagnosis: Right hip osteoarthritis/avascular necrosis Procedure(s) Performed: Direct anterior right total hip arthroplasty Implants: 1. Depuy Corail 125 standard collar size 11 press-fit femoral stem 2. Depuy [place] 52 mm press-fit acetabular shell 3. Depuy pinnacle neutral polyethylene acetabular liner 36 mm ID 52 mm OD 4. Biolox delta ceramic femoral head +1.5 36 mm Anesthesia: regional (erector spinae block), spinal Surgeon: Rakesh Garcia [employer] #1: Liam Argueta Estimated Blood Loss (ml): 75 Pathology: none sent Condition: stable Disposition: PACU Indications for Procedure: 73-year-old gentleman seen with symptomatic right hip osteoarthritis/avascular necrosis. After having created treatment options discussed, he elected to proceed with direct anterior right total hip arthroplasty. Operative Findings: see description of procedure Description of Procedure: The patient was taken to the operative suite. Patient underwent a [] anesthetic by the department of anesthesia. Patient was then transferred to the [place] table. Patient was given preoperative IV antibiotics and TXA. Both lower extremities were placed in standard leg spars. The hip was then prepped and draped in the normal sterile orthopedic fashion. A standard anterior incision was made beginning 3 cm lateral and 1 cm distal to the ASIS extending 10 cm. Dissection was then carried down through the subcutaneous soft tissues down to the fascia overlying the tensor fascia aiden. An incision was now made through the fascia. Careful dissection was taken down exposing the tensor fascia aiden muscle. A Cobra retractor was now placed along the medial femoral neck and a second one along the lateral femoral neck. The venous circumflex vessels were now identified, cauterized and clipped. We identified the anterior hip capsule. An incision was made through the hip capsule along the lateral border. I performed a partial anterior capsulectomy. Retractors were now placed around the femoral neck itself. A femoral neck cut was now made with a sagittal saw. It was completed with an osteotome at the lateral neck area. The femoral head was now removed without difficulty. The extremity was now rotated to 60 of external rotation. It was locked in position. Residual labrum was now debrided out. Serial reaming was performed of the acetabulum while Seun JENKINS assisted holding an anterior retractor for exposure. Once we reached the appropriate size and a trial was position and fit nicely. The appropriate size was now chosen opened and made available. It was introduced into the acetabulum without difficulty. The C-arm/fluoroscopy was now brought into the operative field. We made sure we had a true AP pelvic view. We now under direct C- arm/fluoroscopy introduced into the acetabular component with appropriate version and inclination. I held the cup in appropriate position well Seun JENKINS used a mallet to seat the acetabular component. I noted the component now to be well seated and stable. Acetabular cup introduce her was removed. The C-arm was pulled back. An appropriate liner was introduced and clicked into position. It was felt to be stable. At this point retractors were removed. The extremity was now placed into 140 external rotation with no traction. The leg was now dropped to the ground and adducted. Appropriate retractors were now positioned along the proximal femur. We also placed our femoral look into position. Additional capsular releasing was performed to gain access to the proximal femur. We now used a box osteotome. A canal finder was now utilized. Serial broaching was now performed with the assistance of Seun JENKINS tapping the broaches down with a mallet while held the broach in appropriate rotation and position. This was done until we reached the appropriate size with good overall rotational stability. Appropriate calcar planing was performed. A trial head/neck was placed into position. The hip was now reduced. The C-arm/fluoroscopy was brought back into the operative field. I obtained AP pelvis was demonstrated adequate leg length alignment. The trial components appeared adequately size and positioned. The C-arm/fluoroscopy was pulled back. Retractors were repositioned and the hip was dislocated. The leg was again taken down to the ground and adducted. Appropriate retractors were repositioned as well as the femoral hook. All trial components were removed. The femoral implant was opened along with the femoral head. The femoral implant was introduced on the appropriate handle into our pre-broached area. I held the component position well Seun JENKINS used a mallet to seat the femoral component. The femoral component was now noted to be well seated and stable.. The femoral head was introduced with good positioning and fixation noted. Retractors were now removed. The hip was now reduced. There appeared be good positioning of the hip confirmed on intraoperative fluoroscopy. Spot films were obtained to document this. A second gram of TXA was given. The deep and pizano perficial soft tissues were infiltrated with local analgesic. Bipolar cautery had been utilized intermittently through the procedure for hemostasis. The wound was irrigated copiously with pulse lavage mechanical irrigation. The fascia was repaired with Vicryl suture. The subcutaneous soft tissues were repaired in layers with Vicryl suture. The skin was approximated with pernio/Dermabond. Sterile dressings were applied. Patient was then awakened, transferred to a bed and taken to recovery in stable condition. Seun JENKINS assisted with the complex procedure.
--- NOTE | 2023-02-21 14:44 | FL ---
EXAMINATION TYPE: FL guidance operating room, XR Hip Limited RT Intraoperative/procedural fluoroscopi c services were provided. Total fluoroscopy time is 9 seconds with a total of 2 submitted images to P DYLAN. Please see the operative/procedural note for further details. DAP: 0.5362 Gycm2
[2023-02-21] MEDS: HYDROmorphone 0.5 MG/0.5 ML SYRINGE IVP PRN ×2 (18:02→22:06)
[2023-02-21] MEDS: HYDROcodone/APAP 7.5-325MG 1 EACH TAB PO PRN (20:25)
[2023-02-21] MEDS: SENNOSIDES-DOCUSATE SODIUM 1 EACH TAB PO SCH (20:27)
[2023-02-21] MEDS: ONDANSETRON 4 MG/2 ML VIAL IVP PRN (22:06)
[2023-02-22] MEDS: SODIUM CHLORIDE 0.9% 1,000 ML IV SCH ×2 (01:02→04:42)
[2023-02-22] MEDS: HYDROcodone/APAP 7.5-325MG 1 EACH TAB PO PRN ×4 (02:31→19:34)
[2023-02-22] MEDS: ALPRAZolam 0.5 MG TAB PO PRN ×2 (04:06→21:21)
[2023-02-22] MEDS: HYDROmorphone 0.5 MG/0.5 ML SYRINGE IVP PRN (04:06)
[2023-02-22] MEDS: LACTATED RINGERS 1,000 ML IV SCH (04:42)
[2023-02-22] MEDS: MULTIVITAMINS, THERA 1 EACH TAB PO SCH (07:29)
[2023-02-22] MEDS: ENOXAPARIN 40 MG/0.4 ML SYRINGE SQ SCH (07:32)
[2023-02-22] MEDS: FAMOTIDINE 20 MG TAB PO SCH (07:32)
[2023-02-22] MEDS ORDERED: PANTOPRAZOLE 40 MG TABLET PO PRN (08:06)
[2023-02-22] MEDS ORDERED: polyethylene glycoL 3350 17 GM POWD.PACK PO PRN (08:06)
[2023-02-22] MEDS ORDERED: traZODone HCL 50 MG TAB PO PRN (08:06)
[2023-02-22] MEDS ORDERED: FLUTICASONE 50MCG/SPRAY NASAL 16GM EA NOSTRIL PRN (08:06)
[2023-02-22] MEDS: ONDANSETRON 4 MG/2 ML VIAL IVP PRN (08:20)
[2023-02-22] MEDS ORDERED: MULTIVITAMINS, THERA 1 EACH TAB PO SCH (09:00)
--- NOTE | 2023-02-22 10:38 | P.PN ---
Subjective Progress Note Date: 02/22/23 Principal diagnosis: Status post direct anterior right total hip arthroplasty Patient evaluated today at bedside, as well as his present at bedside also. Patient was very nauseous and did vomit multiple occasions this morning. Patient did not have much fluid in the stomach, he did take a few different narcotics point for pain control. Patient states he didn't sleep very well also. Denies headaches, lightheadedness, chest pain or shortness of breath. Patient was able to do very minimal with therapy today. Objective - Vital Signs Vital signs: Vital Signs Temp 97.7 F 02/22/23 06:56 Pulse 95 02/22/23 06:56 Resp 18 02/22/23 06:56 BP 138/77 02/22/23 06:56 Pulse Ox 96 02/22/23 06:56 FiO2 Intake & Output 02/21/23 02/22/23 02/22/23 18:59 06:59 18:59 Intake Total 1271 Output Total 75 1173 Balance 1196 -1173 Weight 68.1 kg Intake: IV 1051 Oral 220 Output: Urine 950 Post Void Residual 223 Estimated Blood Loss 75 Other: # Voids 0 - Exam Right lower extremity: Incision is clean, dry, and intact. The foam dressing is in good condition. There is minimal soft tissue swelling and ecchymosis surrounding the medial and lateral aspects of the incision. Calf is soft, no tenderness with palpation. Plantar flexion, dorsiflexion, EHL, FHL are intact. Sensory exam to light touch throughout the extremity is intact, dorsal pedis pulses 2+. Assessment and Plan Assessment: Postoperative day #1 status post direct anterior right total hip arthroplasty Plan: Pain control, discussed the patient utilize low-dose narcotics. Okay to utilize Tylenol DVT prophylaxis, continue subcu medication during hospital stay. Aspirin 81 mg twice a day for 30 days after discharge Continue PT/OT, workers tolerated with walker Monitor surgical dressing Encourage incentive spirometer Other medical dir recommendations appreciated Discharge planning: With patient's lack of activity with physical therapy and having a lot of nausea and vomiting today would like to keep patient in house for additional night, anticipate discharge to home with home healthcare on 02/23/2023 Time with Patient: Less than 30
[2023-02-22 10:48] LABS: ALT 20 U/L (4-49); AST 42 U/L (17-59); African American GFR (CKD) >90 (>60 ml/min/1.73 sqM); Albumin/Globulin Ratio 1.4; Alkaline Phosphatase 70 U/L (38-126); Anion Gap 12 mmol/L; Blood Urea Nitrogen 18 mg/dL (9-20); Calcium 9.2 mg/dL (8.4-10.2); Carbon Dioxide 27 mmol/L (22-30); Chloride 99 mmol/L (98-107); Globulin 2.9 g/dL; Glucose 126 mg/dL (74-99); Magnesium 1.8 mg/dL (1.6-2.3); Non-African American GFR(CKD) 88 (>60 ml/min/1.73 sqM); Potassium 4.3 mmol/L (3.5-5.1); Sodium 138 mmol/L (137-145); Total Bilirubin 0.6 mg/dL (0.2-1.3); Total Protein 6.9 g/dL (6.3-8.2)
[2023-02-22] MEDS ORDERED: PROCHLORPERAZINE INJ 10 MG/2 ML VIAL IVP STA (10:58)
[2023-02-22 11:01] LABS: Basophils # (A) 0.02 X 10*3/uL (0.00-0.10); Basophils % (A) 0.2 %; Eosinophils # (A) 0.01 X 10*3/uL (0.04-0.35); Eosinophils % (A) 0.1 %; HCT 37.9 % (39.6-50.0); HGB 12.4 g/dL (13.0-17.0); Lymphocytes # (A) 1.58 X 10*3/uL (0.90-5.00); Lymphocytes % (A) 13.5 %; MCH 31.3 pg (27.0-32.0); MCHC 32.7 g/dL (32.0-37.0); MCV 95.7 FL (80.0-97.0); Mean Platelet Volume 9.3 FL (9.5-12.2); Monocytes # (A) 0.68 X 10*3/uL (0.20-1.00); Monocytes % (A) 5.8 %; NRBC Per 100 WBC 0 X 10*3/uL (0.00-0.01); Neutrophils # (A) 9.37 X 10*3/uL (1.80-7.70); Neutrophils % (A) 80.1 %; Platelet Count 296 X 10*3/uL (140-440); RBC 3.96 X 10*6/uL (4.40-5.60); RDW 13.4 % (11.5-14.5); WBC 11.69 X 10*3/uL (4.50-10.00)
--- NOTE | 2023-02-22 15:05 | P.CONS ---
History of Present Illness - Reason for Consult Consult date: 02/22/23 Medical Management Requesting physician: Rakesh Garcia - History of Present Illness History of Presenting Illness: Patient is a very pleasant 73-year-old male with a past medical history of hypertension, hyperlipidemia, glaucoma, cataracts status post surgical removal with lens implants, pancreatitis, and avascular necrosis and right hip. Patient is currently admitted under orthopedic surgery team and underwent elective direct anterior approach right total hip arthroplasty on 02/21/23. Surgical procedure was completed by Dr. Garcia. We were consulted this morning for reviewing and reordering of patient's home medications and for medical management throughout his hospitalization. Patient was seen and fully evaluated at bedside. He is currently postoperative day 1. Patient reports mild to moderate postoperative pain and persistent postoperative nausea. Patient reports initially experiencing urinary retention but reports this seems to be improving this morning. He denies having any headache, lightheadedness, dizziness, chest pain, palpitations, shortness of breath, abdominal pain or discomfort, or experiencing any numbness/tingling in his extremities. Review of systems: Pertinent positives and negatives as discussed in HPI, a complete review of systems was performed and all other systems are negative. Physical exam: Vital signs reviewed and stable. General: Nontoxic, no distress and appears stated age. Derm: Skin warm and dry, normal coloration for ethnicity. Head: Atraumatic, normocephalic and symmetric. Eyes: EOMs intact, no lid lag, and anicteric sclera Mouth: no lip lesions, mucus membranes moist Cardiovascular: regular rate and rhythm with normal S1S2, no murmur, positive posterior tibial pulses bilaterally, and cap refill < 2 seconds. Lungs: Respirations even, regular, and unlabored on room air. Lungs CTA bilaterally, no rhonchi, no rales, no wheezing, and no accessory muscle usage. Abdominal: soft, nontender to palpation, no guarding, no appreciable organomegaly Ext: ROM intact. No gross muscle atrophy, no edema, no contractures Neuro: Speech clear, face symmetrical and CN II-XII grossly intact with no noted focal neuro deficits Psych: Alert and oriented to person, place, time, and situation. Appropriate and pleasant affect. Assessment and Plan of Care: Persistent postoperative nausea -Patient on Zofran 4 mg every 8 hours as needed for nausea/vomiting. This was ineffective at controlling postoperative nausea/vomiting. -Orders placed for Compazine 10 mg IVP every 6 hours as needed for persistent n ausea/vomiting. Postoperative urinary retention -Monitor for resolution. Continue bladder scans to monitor for postvoid residuals. Acute postoperative blood loss anemia This is a stable and expected finding with no need for blood transfusion or further interventions at this time. Postoperative hemoglobin stable at 12.4 with preoperative hemoglobin of 14.9. Status post right total hip arthroplasty Management per primary admitting orthopedic surgery team including DVT prophylaxis, pain management, wound/dressing care, weightbearing, and PT/OT. Patient currently lives DVT prophylaxis with Lovenox. Glaucoma Cataracts status post bilateral cataract surgical removal with lens implants Continue with daily eyedrops including Lantus process 1 drop both eyes nightly. GERD Continue Protonix 40 mg twice daily. Data reviewed: Vital signs reviewed and stable. Blood pressure 138/77, heart rate 95, respiratory rate 18, temp 97.7F, SpO2 of 96% on room air. Postoperative labs reviewed. CBC showing mild postoperative leukocytosis with WBC count of 11.69. Postoperative acute blood loss anemia with hemoglobin of 12.4 and stable. BMP unremarkable. Liver profile normal findings. Magnesium also normal at 1.6. Thank you for allowing us to participate in the care of this pleasant patient. Do not hesitate to contact us with questions. Someone can be reached from the [facility] [place] hospitalist group all hours of the day at [phone] or via [employer]. Patient was seen independently by Nurse Practitioner. This document was prepared using [employer] dictation software. Please allow for errors in switchboard troubleshooter while rare they do occur. Past Medical History Past Medical History: Eye Disorder, Hyperlipidemia, Hypertension Additional Past Medical History / Comment(s): hypoglycemic, glaucoma, chronic pain in neck/back/right hip, pancreatitis, avascular necrosis in right hip History of Any Multi-Drug Resistant Organisms: None Reported Past Surgical History: Appendectomy, Hernia Repair Additional Past Surgical History / Comment(s): ruptured appendix, bilateral cataract removals with lens implants. Past Anesthesia/Blood Transfusion Reactions: No Reported Reaction Past Psychological History: Anxiety Additional Psychological History / Comment(s): Pt resides alone but has a friend that will staying with him post op. Pt states he is anxious about possible durable equipment needs at discharge. He has a walker and a shower chair. Smoking Status: Former smoker Past Alcohol Use History: None Reported Additional Past Alcohol Use History / Comment(s): Quit smoking about 2012 Past Drug Use History: Marijuana Additional Drug Use History / Comment(s): THC periodically/aware to abstain x 24 hrs prior to surgery. - Past Family History Mother Family Medical History: Diabetes Mellitus, Hypertension Father Family Medical History: Cancer Additional Family Medical History / Comment(s): throat cancer Medications and Allergies Home Medications Medication Instructions Recorded Confirmed Type Latanoprost [Xalatan 0.005%] 1 drop BOTH EYES HS 02/23/19 02/21/23 History Multivitamins, Thera [Multivitamin 1 tab PO QAM 02/23/19 02/21/23 History (formulary)] traZODone HCL [Desyrel] 50 mg PO HS PRN 08/05/19 02/21/23 History ALPRAZolam [Xanax] 0.5 mg PO BID PRN 06/15/20 02/21/23 History Ascorbic Acid [Vitamin C] 500 mg PO QAM 06/15/20 02/21/23 History Fluticasone Nasal [place] [Flonase 1 spray EA NOSTRIL BID PRN 06/15/20 02/21/23 History Nasal [place]] Pantoprazole [Protonix] 40 mg PO AC-BID PRN 06/15/20 02/21/23 History polyethylene glycoL 3350 [Miralax] 17 gm PO DAILY PRN 06/15/20 02/21/23 History Acetaminophen Tab [Tylenol] 500 mg PO Q6HR PRN tab 06/19/20 02/21/23 Rx Cholecalciferol (Vitamin D3) 125 mcg PO QAM 02/14/23 02/21/23 History [Vitamin D3 (125 MCG = 5,000 IU)] Ibuprofen [Motrin] 800 mg PO Q8H PRN 02/14/23 02/21/23 History Allergies Allergy/AdvReac Type Severity Reaction Status Date / Time morphine AdvReac Nausea & Verified 02/21/23 09:39 Vomiting Yhmxdus-NYH-QlM Reductase AdvReac MUSCLE PAIN Verified 02/21/23 09:39 Inhibitor [Cgumffs-Jfp-Mor Reductase Inhibitor] Physical Exam Vitals: Vital Signs Temp Pulse Pulse Resp BP Pulse Ox 02/22/23 06:56 97.7 F 95 18 138/77 96 02/22/23 00:46 97.6 F 78 15 146/81 97 02/21/23 19:23 97.8 F 97 14 160/83 99 02/21/23 14:48 68 16 151/94 97 02/21/23 14:18 98.7 F 66 16 132/80 97 02/21/23 13:36 70 16 135/80 100 02/21/23 13:20 73 16 134/84 100 02/21/23 13:05 74 16 122/77 100 02/21/23 12:53 77 16 109/65 100 02/21/23 10:48 68 16 130/76 99 Intake and Output 02/21/23 02/22/23 02/22/23 22:59 06:59 14:59 Intake Total 220 Output Total 1173 Balance 220 -1173 Intake: Oral 220 Output: Urine 950 Post Void Residual 223 Other: # Voids 0 Results CBC & Chem 7: 02/22/23 05:58 02/22/23 05:58
[2023-02-22] MEDS ORDERED: PROCHLORPERAZINE INJ 10 MG/2 ML VIAL IVP PRN (17:21)
[2023-02-22] MEDS: SENNOSIDES-DOCUSATE SODIUM 1 EACH TAB PO SCH (19:34)
[2023-02-22] MEDS ORDERED: LATANOPROST 0.005% OPHTH DROPS 2.5 ML BTL BOTH EYES SCH (21:00)
[2023-02-23] MEDS: ONDANSETRON 4 MG/2 ML VIAL IVP PRN (04:31)
[2023-02-23] MEDS: HYDROcodone/APAP 7.5-325MG 1 EACH TAB PO PRN ×2 (04:37→11:02)
[2023-02-23] MEDS: SODIUM CHLORIDE 0.9% 1,000 ML IV SCH (04:41)
[2023-02-23] MEDS: LACTATED RINGERS 1,000 ML IV SCH (05:53)
[2023-02-23] MEDS: ENOXAPARIN 40 MG/0.4 ML SYRINGE SQ SCH (08:23)
[2023-02-23] MEDS: FAMOTIDINE 20 MG TAB PO SCH (08:23)
[2023-02-23] MEDS: MULTIVITAMINS, THERA 1 EACH TAB PO SCH (08:24)
[2023-02-23 09:06] VITALS: BP 147/85; PULSE 94; RESP 18; TEMP 97.9
--- NOTE | 2023-02-23 09:40 | P.DS ---
Providers Date of admission: 02/21/23 12:49 Expected date of discharge: 02/23/23 Attending physician: Rakesh Garcia Consults: 02/21/23 12:49 Consult Physician Routine Consulting Provider: Nancy Zambrano Consult Reason/Comments: Medical management Do you want consulting provider notified?: Yes Primary care physician: [facility] Hospital Course: Date of admission: 02/21/2023 Date of discharge: 02/23/2023 Admission diagnosis: Right hip osteoarthritis/avascular necrosis Discharge diagnosis: Same Attending physician: Dr. Garcia Surgical procedures: Right total hip arthroplasty Brief history: Patient is a 73-year-old male with a history of progressive primary right hip osteoarthritis. At this point patient has failed conservative treatment measures and has opted to proceed with a elective right total hip arthroplasty. Hospital course: Details of patient's surgery can be found in operative report. Patient tolerated the procedure well and was subsequently transported to orthopedic floor. Patient's orthopeidc and medical care was provided daily. Patient had daily laboratory tests performed for evaluation of overall blood counts. Patient had daily physical therapy to include strengthening range of motion as well as education with walker ambulation. Patient was treated with Lovenox for their postoperative DVT prophylaxis during their inpatient stay. Patient was noted to have a relatively uneventful postoperative course. Patient reported satisfactory pain control with oral pain medications by postoperative day 2. Patient showed satisfactory progress with physical therapy. Patient moved steadily through the program and had no difficulty meeting the goals by postoperative day 2. Given patient's otherwise satisfactory course and having met physical therapy goals, plan is to discharge patient home with health services on postoperative day 2. Discharge condition/disposition: Patient will be discharged home with health services in stable condition. Discharge medications: Instructions are given on resumption of patient's normal daily medications per primary care recommendation, in addition patient will be prescribed Festus 7.5mg/325mg; senna; resume aspirin 81 mg twice a day 30 days at home. Discharge instructions: 1. Wound care and infection precautions, keep incision dry and covered while showering, no lotions, creams, moisturizers. No soaking, tubs, pools, hottubs. Do not scrub over the incision. 2. Weight-bear as tolerated with walker / cane until follow-up. 3. Ice and elevate when necessary. Do not exceed 20 minutes per hour with ice pack. 4. Utilize compression sleeve until seen at first follow up appointment. 5. Visiting nursing care. 6. Home physical therapy. 7. Pain meds and anticoagulants per prescription. 8. Pain medication has potential to cause constipation. Increase oral fluid and fiber intake. Contact primary care provider if you have not had a bowel movement within 48 hours after discharge 9. No anti-inflammatory medication until discussed at first post operative visit, this including Motrin, Aleve, Mobic, Diclofenac. 10. Follow up in office at 2 weeks postop with Seun Argueta PA-C / Isreal Helton PA-C 11. Follow up with your primary care doctor 7-10 days after discharge. 12. Contact [facility] with any questions, . Assessment: Right hip osteoarthritis/avascular necrosis Procedures: Right total hip arthroplasty Patient Condition at Discharge: Good Plan - Discharge Summary Discharge Rx Participant: No New Discharge Prescriptions: New HYDROcodone/APAP 7.5-325MG [Festus 7.5-325] 1 - 2 tab PO Q6HR PRN #32 tab PRN Reason: Pain Sennosides/Docusate Sodium [Senna Plus 8.6-50 mg Softgel] 1 each PO DAILY #20 capsule No Action Multivitamins, Thera [Multivitamin (formulary)] 1 tab PO QAM Latanoprost [Xalatan 0.005%] 1 drop BOTH EYES HS traZODone HCL [Desyrel] 50 mg PO HS PRN PRN Reason: Insomnia polyethylene glycoL 3350 [Miralax] 17 gm PO DAILY PRN PRN Reason: Constipation Ascorbic Acid [Vitamin C] 500 mg PO QAM Acetaminophen Tab [Tylenol] 500 mg PO Q6HR PRN tab PRN Reason: Fever And/ Or Pain Ibuprofen [Motrin] 800 mg PO Q8H PRN PRN Reason: Pain Pantoprazole [Protonix] 40 mg PO AC-BID PRN PRN Reason: ACID REFLUX Fluticasone Nasal [place] [Flonase Nasal [place]] 1 spray EA NOSTRIL BID PRN PRN Reason: Allergy Symptoms ALPRAZolam [Xanax] 0.5 mg PO BID PRN PRN Reason: Anxiety Cholecalciferol (Vitamin D3) [Vitamin D3 (125 MCG = 5,000 IU)] 125 mcg PO QAM Discharge Medication List Latanoprost [Xalatan 0.005%] 1 drop BOTH EYES HS 02/23/19 [History] Multivitamins, Thera [Multivitamin (formulary)] 1 tab PO QAM 02/23/19 [History] traZODone HCL [Desyrel] 50 mg PO HS PRN 08/05/19 [History] ALPRAZolam [Xanax] 0.5 mg PO BID PRN 06/15/20 [History] Ascorbic Acid [Vitamin C] 500 mg PO QAM 06/15/20 [History] Fluticasone Nasal [place] [Flonase Nasal [place]] 1 spray EA NOSTRIL BID PRN 06/15/20 [History] Pantoprazole [Protonix] 40 mg PO AC-BID PRN 06/15/20 [History] polyethylene glycoL 3350 [Miralax] 17 gm PO DAILY PRN 06/15/20 [History] Acetaminophen Tab [Tylenol] 500 mg PO Q6HR PRN tab 06/19/20 [Rx] Cholecalciferol (Vitamin D3) [Vitamin D3 (125 MCG = 5,000 IU)] 125 mcg PO QAM 02/14/23 [History] Ibuprofen [Motrin] 800 mg PO Q8H PRN 02/14/23 [History] HYDROcodone/APAP 7.5-325MG [Festus 7.5-325] 1 - 2 tab PO Q6HR PRN #32 tab 02/23/23 [Rx] Sennosides/Docusate Sodium [Senna Plus 8.6-50 mg Softgel] 1 each PO DAILY #20 capsule 02/23/23 [Rx] Follow up Appointment(s)/Referral(s): Betty Pozo,Home Care [NON-STAFF] - Liam Argueta PAC [PHYSICIAN TERMITE TREATER HELPER] - 2 Weeks Patient Instructions/Handouts: Anterior Hip Replacement (DC) Activity/Diet/Wound Care/Special Instructions: Orthopedic Discharge Instructions: 1. Wound care and infection precautions, keep incision dry and covered while showering, no lotions, creams, moisturizers. No soaking, pools, hot tubs. Do not scrub over incision. 2. Weight-bear as tolerated with walker / cane until follow-up. 3. Ice and elevate when necessary. Do not exceed 20 minutes per hour with ice pack. 4. Utilize compression sleeve until seen at first follow up appointment. 5. Pain meds and anticoagulants per prescription. 6. Pain medication has potential to cause constipation. Increase oral fluid and fiber intake. Contact primary care provider if you have not had a bowel movement within 48 hours after discharge. 7. No anti-inflammatory medication until discussed at first post operative visit, this including Motrin, Aleve, Mobic, Diclofenac. 8. Follow up in office at 2 weeks postop with Seun Argueta PA-C / Isreal Helton PA-C 9. Follow up with your primary care doctor 7-10 days after discharge. 10. Contact [facility] with any questions, . Keep incision clean, dry, intact. While showering, cover silver foam dressing was Saran wrap. Silver foam dressing may removed on 02/28/2023. Once dressing is removed, it is okay to shower directly over incision Discharge Disposition: HOME WITH HOME HEALTH SERVICES
--- NOTE | 2023-02-23 09:51 | P.PN ---
Subjective Progress Note Date: 02/23/23 Principal diagnosis: Right hip osteoarthritis/avascular necrosis Patient was seen at bedside this morning sitting up in chair with dressing over right hip. Patient says just finished working with therapy and was able to walk on the [place] and up-and-down stairs. Patient says since working with therapy he does have some increased pain to the right hip and thigh. Patient describes having some numbness to the right thigh since surgery. Patient says the pain medication does help somewhat with pain control. Patient says he has urinated several times surgery. Patient says he has not had bowel movement yet, however, he says he has been passing gas. Patient denies chest pain, fever, shortness of breath, nausea, vomiting, change in vision, loss of bowel/bladder control. Objective - Vital Signs Vital signs: Vital Signs Temp 97.9 F 02/23/23 07:56 Pulse 94 02/23/23 07:56 Resp 18 02/23/23 07:56 BP 147/85 02/23/23 07:56 Pulse Ox 99 02/23/23 07:56 FiO2 Intake & Output 02/22/23 02/23/23 02/23/23 18:59 06:59 18:59 Other: # Voids 4 3 # Bowel Movements 1 - Exam Right hip: Incision is clean, dry, and intact. The silver foam dressing is in good condition. There is minimal soft tissue swelling and ecchymosis surrounding the medial and lateral aspects of the incision. Calf is soft, no tenderness with palpation. Plantar flexion, dorsiflexion, EHL, FHL are intact. Sensory exam to light touch throughout the extremity is intact, dorsal pedis pulses 2+. - Labs CBC & Chem 7: 02/22/23 05:58 02/22/23 05:58 Labs: Abnormal Lab Results - Last 24 Hours (Table) 02/22/23 02/22/23 Range/Units 05:58 05:58 WBC 11.69 H (4.50-10.00) X 10*3/uL RBC 3.96 L (4.40-5.60) X 10*6/uL Hgb 12.4 L (13.0-17.0) g/dL Hct 37.9 L (39.6-50.0) % MPV 9.3 L (9.5-12.2) FL Neutrophils # 9.37 H (1.80-7.70) X 10*3/uL Eosinophils # 0.01 L (0.04-0.35) X 10*3/uL Glucose 126 H (74-99) mg/dL Assessment and Plan Assessment: 1. Right hip osteoarthritis/avascular necrosis - Postop day #2 status post right total hip arthroplasty Plan: 1. Right hip osteoarthritis/avascular necrosis - right total hip arthroplasty performed Sunday, and 02/21/2023. Patient stable at bedside this morning. He did do well with therapy this morning and walked up-and-down stairs. Pain medication as needed. Weightbearing as tolerated with walker. Discharge home today with health services. 2. Appreciate medical management 3. Pain management - [place] 4. DVT prophylaxis - Lovenox in hospital. Patient has aspirin at home. Patient is to take 81 mg twice daily 30 days 5. GI prophylaxis - senna 6. PT/OT - weightbearing as tolerated with walker 7. Encourage incentive spirometer use 8. Discharge planning - home today with health services Time with Patient: Less than 30
--- NOTE | 2023-02-23 11:48 | P.PN ---
Subjective Progress Note Date: 02/23/23 History of Presenting Illness: Patient is a very pleasant 73-year-old male with a past medical history of hypertension, hyperlipidemia, glaucoma, cataracts status post surgical removal with lens implants, pancreatitis, and avascular necrosis and right hip. Patient is currently admitted under orthopedic surgery team and underwent elective direct anterior approach right total hip arthroplasty on 02/21/23. Surgical procedure was completed by Dr. Garcia. We were consulted this morning for reviewing and reordering of patient's home medications and for medical management throughout his hospitalization. Physical exam: Patient seen and fully evaluated at bedside this morning. He is postoperative day 2 and appears to be doing well. Patient is dressed and sitting in chair at bedside. Patient reports he continues to have moderate postoperative pain and some occasional nausea. Patient is being discharged by orthopedic surgery team home on oral pain medications at this time. Order sent for Zofran ODT for antiemedic if patient continues to have nausea resulting from pain medication. Patient encouraged to eat prior to taking pain medication at least something light such as saltine crackers. Vital signs reviewed and stable. General: Nontoxic, no distress and appears stated age. Derm: Skin warm and dry, normal coloration for ethnicity. Head: Atraumatic, normocephalic and symmetric. Eyes: EOMs intact, no lid lag, and anicteric sclera Mouth: no lip lesions, mucus membranes moist Cardiovascular: regular rate and rhythm with normal S1S2, no murmur, positive p osterior tibial pulses bilaterally, and cap refill < 2 seconds. Lungs: Respirations even, regular, and unlabored on room air. Lungs CTA bilaterally, no rhonchi, no rales, no wheezing, and no accessory muscle usage. Abdominal: soft, nontender to palpation, no guarding, no appreciable organomegaly Ext: ROM intact. No gross muscle atrophy, no edema, no contractures Neuro: Speech clear, face symmetrical and CN II-XII grossly intact with no noted focal neuro deficits Psych: Alert and oriented to person, place, time, and situation. Appropriate and pleasant affect. Assessment and Plan of Care: Persistent postoperative nausea, resolved -Patient on Zofran 4 mg every 8 hours as needed for nausea/vomiting. This was ineffective at controlling postoperative nausea/vomiting. -Orders placed for Compazine 10 mg IVP every 6 hours as needed for persistent nausea/vomiting. Postoperative urinary retention, fully resolved. Acute postoperative blood loss anemia, hemoglobin stable at 12.4. This is a stable and expected finding with no need for blood transfusion or further interventions at this time. Postoperative hemoglobin stable at 12.4 with preoperative hemoglobin of 14.9. Status post right total hip arthroplasty Management per primary admitting orthopedic surgery team including DVT pr ophylaxis, pain management, wound/dressing care, weightbearing, and PT/OT. Patient currently lives DVT prophylaxis with Lovenox. Glaucoma Cataracts status post bilateral cataract surgical removal with lens implants Continue with daily eyedrops GERD Continue Protonix 40 mg twice daily. Data reviewed: Vital signs reviewed and stable. Blood pressure 147/85, heart rate 94, respiratory rate 18, temperature 97.1F, and SpO2 of 99% on room air. Patient has been medically optimized for discharge with no further recommendations from medical perspective. Medication reconciliation completed. Patient may be discharged once discharge order is placed by primary admitting orthopedic surgery team. Thank you for allowing us to participate in the care of this pleasant patient. Do not hesitate to contact us with questions. Someone can be reached from the [facility] hospitalist group all hours of the day at [phone] or via [employer]. Patient was seen independently by Nurse Practitioner. This document was prepared using [employer] dictation software. Please allow for errors in rail washer while rare they do occur. Tyler Miranda NP rendered care for this patient independently, reviewed the findings and plan as documented in the note above. I did not physically speak with or examine the patient on this date. Objective - Vital Signs Vital signs: Vital Signs Temp 97.9 F 02/23/23 07:56 Pulse 94 02/23/23 07:56 Resp 18 02/23/23 07:56 BP 147/85 02/23/23 07:56 Pulse Ox 99 02/23/23 07:56 FiO2 Intake & Output 02/22/23 02/23/23 02/23/23 18:59 06:59 18:59 Other: # Voids 4 3 # Bowel Movements 1 - Labs CBC & Chem 7: 02/22/23 05:58 02/23/23 06:06 Labs: Abnormal Lab Results - Last 24 Hours (Table) 02/22/23 02/22/23 Range/Units 05:58 05:58 WBC 11.69 H (4.50-10.00) X 10*3/uL RBC 3.96 L (4.40-5.60) X 10*6/uL Hgb 12.4 L (13.0-17.0) g/dL Hct 37.9 L (39.6-50.0) % MPV 9.3 L (9.5-12.2) FL Neutrophils # 9.37 H (1.80-7.70) X 10*3/uL Eosinophils # 0.01 L (0.04-0.35) X 10*3/uL Glucose 126 H (74-99) mg/dL
[2023-02-23 12:06] LABS: BUN/Creat Ratio 14.33 Ratio (12.00-20.00); Blood Urea Nitrogen 12.9 mg/dL (9.0-27.0); Carbon Dioxide 21.5 mmol/L (21.6-31.8); Chloride 102 mmol/L (96-109); Glucose 162 mg/dL (70-110); Magnesium 1.9 mg/dL (1.5-2.4); Potassium 4.3 mmol/L (3.5-5.5); Sodium 135 mmol/L (135-145)
[2023-02-23 12:07] LABS: ALT 13 U/L (10-49); AST 37 U/L (14-35); Albumin 4.1 g/dL (3.8-4.9); Albumin/Globulin Ratio 1.64 Ratio (1.60-3.17); Alkaline Phosphatase 56 U/L (41-126); Globulin 2.5 g/dL (1.6-3.3); Total Bilirubin 0.6 mg/dL (0.3-1.2); Total Protein 6.6 g/dL (6.2-8.2)
== END 2023-02-23 11:53 | disposition home health service (06) ==
LOC: OR 08:59 → 4SSUR 12:48 → OR 12:49 → 4SSUR 12:49
PROVIDERS: ADMIT Orthopaedic Surgery; ATTEND Orthopaedic Surgery
DX: M16.11 Unilateral primary osteoarthritis, right hip (principal); M87.9 Osteonecrosis, unspecified; R11.2 Nausea with vomiting, unspecified; D62 Acute posthemorrhagic anemia; N99.89 Other postprocedural complications and disorders of genitourinary system; R20.0 Anesthesia of skin; I10 Essential (primary) hypertension; E78.5 Hyperlipidemia, unspecified; H40.9 Unspecified glaucoma; K85.90 Acute pancreatitis without necrosis or infection, unspecified; K21.9 Gastro-esophageal reflux disease without esophagitis; E16.2 Hypoglycemia, unspecified; G89.29 Other chronic pain; M54.2 Cervicalgia; F41.9 Anxiety disorder, unspecified; Z79.899 Other long term (current) drug therapy; Z96.1 Presence of intraocular lens; Z87.891 Personal history of nicotine dependence; Z88.5 Allergy status to narcotic agent; Z88.8 Allergy status to other drugs, medicaments and biological substances; Z83.3 Family history of diabetes mellitus; Z82.49 Family history of ischemic heart disease and other diseases of the circulatory system; Z80.8 Family history of malignant neoplasm of other organs or systems
CPT/HCPCS: 96372 ×2; 97161; 97166; 64447; 80053 ×2; 83735 ×2; 85025; 73501; 27130; G0378 ×2; C1776; J2250; J0780; J1100; J0690 ×3; J2405 ×3; J1650 ×2; J3010 ×2; J2795; J2704; J1170 ×2; J2371

== ENCOUNTER → 2023-10-10 | Outpatient (CLI) | payer OTHER ==
--- NOTE | 2023-11-05 14:27 | MR ---
EXAMINATION TYPE: MR knee RT wo con DATE OF EXAM: 10/24/2023 COMPARISON: Outside right knee x-ray September 11, 2023 HISTORY: Pain TECHNIQUE: Multiplanar, multisequence images of the knee is performed without IV contrast. FINDINGS: MEDIAL MENISCUS: Anterior and posterior horns are intact without tear. LATERAL MENISCUS: Anterior and posterior horns are intact without tear. CRUCIATE LIGAMENTS: The anterior and posterior cruciate ligaments are intact and unremarkable. COLLATERAL LIGAMENTS: The medial collateral ligament and lateral collateral ligament complex are inta ct and unremarkable. EXTENSOR MECHANISM: Visualized quadriceps and patellar tendons are intact. EFFUSION: No significant suprapatellar joint effusion. POPLITEAL CYST: No popliteal/mora cyst. TRICOMPARTMENT SPACES: Mild to moderate tricompartment joint space loss and mild spurring CARTILAGE: Tricompartmental articular cartilage is preserved. BONE MARROW SIGNAL: No focal abnormal marrow signal is appreciated. OTHER: No additional significant abnormality is appreciated. IMPRESSION: No meniscal or ligamentous tear is seen. [id number] tricompartment degenerative carmen nges are present.
== END | disposition home or self-care (01) ==
LOC: RADMRIMAIN 11:26
PROVIDERS: ATTEND Family Medicine
DX: M17.11 Unilateral primary osteoarthritis, right knee (principal)

== ENCOUNTER → 2024-01-02 | Outpatient (CLI) | payer OTHER ==
--- NOTE | 2024-01-02 11:32 | MR ---
EXAMINATION TYPE: MR lumbar spine wo con DATE OF EXAM: 01/02/2024 COMPARISON: 04/22/2022, CT abdomen and pelvis 12/31/2022 CLINICAL INDICATION: Male, 73 years old with history of M48.07 SPINAL STENOSIS, LUMBOSACRAL REGION PH H, TECHNIQUE: T1 and T2 axial and sagittal images of the lumbar spine are submitted. FINDINGS: There is no abnormal signal seen within the visualized spinal cord or paraspinal soft tissu es. There is straightening of the normal lumbar lordosis. There is an infrarenal abdominal aortic ane urysm measuring 4 cm. Segment of the left adrenal gland. At L1-2 there is minimal disc bulging. There is mild degenerative disc disease. No canal stenosis, fo yifan herniation or foraminal encroachment. At L2-3 there is mild degenerative disc disease with disc bulging but no focal herniation or canal st enosis. Mild hypertrophic change of the facets and ligamentum flavum. Neural foramina are patent. At L3-4 there is mild to moderate degenerative change with hypertrophic change of the facets and liga mentum flavum. Mild circumferential disc bulging. Mild bilateral foraminal encroachment. Borderline c entral stenosis. At L4-5 there is severe degenerative disc disease with vacuum disc and small focal central disc herni ation resulting in mild anterior compression of the thecal sac. Facet arthropathy is seen. There is m ild bilateral foraminal encroachment. At L5-S1 there is severe degenerative disc disease with small focal disc osteophyte complex\herniatio n centrally resulting in mild anterior compression of the thecal sac. IMPRESSION: 1. Infrarenal abdominal aortic aneurysm measuring 4 cm. Increased in size from prior exam where the m aximal dimension was 3.6 cm. 2. Multilevel moderate to severe degenerative disc disease most marked at L4-5 and L5-S1. Stable cent ral disc herniation L4-5 and L5-S1. [facility], , 01/02/2024 11:29 AM
== END | disposition home or self-care (01) ==
LOC: RADMRIMAIN 10:03
PROVIDERS: ATTEND Family Medicine
DX: M48.07 Spinal stenosis, lumbosacral region (principal); M54.00 Panniculitis affecting regions of neck and back, site unspecified; I71.43 Infrarenal abdominal aortic aneurysm, without rupture; M51.369 Other intervertebral disc degeneration, lumbar region without mention of lumbar back pain or lower extremity pain; M51.379 Other intervertebral disc degeneration, lumbosacral region without mention of lumbar back pain or lower extremity pain
CPT/HCPCS: 72148